=== PATIENT | female | born 1945 | race Caucasian/White ===

== ENCOUNTER → 2018-10-01 | Outpatient (CLI) | payer OTHER | END | disposition home or self-care (01) | LOC: SHCH 11:01 | PROVIDERS: ATTEND Internal Medicine Cardiovascular Disease | DX: R94.31 Abnormal electrocardiogram [ECG] [EKG] (principal); R00.0 Tachycardia, unspecified | CPT/HCPCS: 93306 ==

== ENCOUNTER → 2018-10-04 | Outpatient (CLI) | payer OTHER | END | disposition home or self-care (01) | LOC: RAH 13:33 | PROVIDERS: ATTEND Internal Medicine Cardiovascular Disease | DX: Z13.6 Encounter for screening for cardiovascular disorders (principal) | CPT/HCPCS: 75571 ==

== ENCOUNTER → 2019-01-22 | Outpatient (CLI) | payer OTHER | END | disposition home or self-care (01) | LOC: SHCH 10:47 | PROVIDERS: ATTEND Internal Medicine Cardiovascular Disease | DX: I50.22 Chronic systolic (congestive) heart failure (principal) | CPT/HCPCS: 93306 ==

== ENCOUNTER 2019-02-21 05:36 | Observation (INO) | payer OTHER ==
[2019-02-19 09:30] VITALS: BP 162/81
[2019-02-19 09:37] LABS: BASOPHILS % (AUTO) 0.4 % (0.0-5.0); EOSINOPHILS % (AUTO) 4.4 % (0.0-8.0); HEMATOCRIT 40.3 % (36-48); LYMPHOCYTES % (AUTO) 25.7 % (21.0-51.0); MEAN CORPUSCULAR HEMOGLOBIN 35.2 pg (27.0-33.0); MEAN CORPUSCULAR HGB CONC 33.9 g/dL (32.0-36.0); MEAN CORPUSCULAR VOLUME 103.8 fL (79-99); MONOCYTES % (AUTO) 10.7 % (3.0-13.0); NEUTROPHILS % (AUTO) 58.8 % (40.0-77.0); PLATELET COUNT (AUTO) 222 K/uL (130-400); RED BLOOD CELL COUNT(AUTO) 3.88 MIL/uL (4.00-5.50); WHITE BLOOD COUNT (AUTO) 5.5 K/uL (4.8-10.8)
[2019-02-19 09:47] LABS: CREATININE 0.6 mg/dL (0.5-1.5); POTASSIUM 4.1 mmol/L (3.5-5.1)
[2019-02-19 09:51] LABS: INR 0.94 (0.85-1.15); PARTIAL THROMBOPLASTIN TIME 28.1 SEC (26.3-35.5); PROTHROMBIN TIME 9.9 SEC (9.6-11.6)
[~2019-02-21] VITALS: Ht 157.5 cm; Wt 67.2 kg
[2019-02-21] VITALS (12 sets, daily range): BP systolic 86–156; BP diastolic 51–89
[~2019-02-21 05:36] MED LIST: APPLE CIDER PO; ASCO10007 PO; BETA1TAB20 PO; CALC-190 PO; CART1TAB4 PO; CARV6.25 PO; CHOL200079 PO; CYAN50008 PO; FURO20TA4 PO; HERB1CAP2 PO; LOSA25TA41 PO; MULT-1265 PO; PANT40TA25 PO; SODIUM CHLORIDE 0.9% 1000ML 1,000 ML IV SCH; VITA1TAB39 PO
[2019-02-21] MEDS: CEFAZOLIN SODIUM 1 GM VIAL IVP SCH ×2 (06:00→19:53)
[2019-02-21] MEDS ORDERED: IOHEXOL-350 50ML VIAL IV ONE (07:14)
[2019-02-21] MEDS ORDERED: CEFAZOLIN SODIUM 1 GM VIAL ONE (07:14)
[2019-02-21] MEDS ORDERED: BUPIVACAINE/PF 0.25% 30ML VIAL IJ ONE (07:14)
[2019-02-21] MEDS ORDERED: MIDAZOLAM HCL 1 MG/ML 2ML VIAL ONE ×6 (07:15→08:45)
[2019-02-21] MEDS ORDERED: MEPERIDINE-PF 25 MG/ML SYG ONE ×6 (07:15→08:45)
[2019-02-21] MEDS ORDERED: LIDOCAINE HCL 1% MDV 50ML VIAL ONE (07:15)
[2019-02-21] MEDS ORDERED: ACETAMINOPHEN-CODEINE 300/30MG TAB PO PRN (09:15)
[2019-02-21] MEDS ORDERED: ACETAMINOPHEN EXTRA STRENGTH 500 MG TABLET PO PRN (09:15)
[2019-02-21] MEDS: MEPERIDINE-PF 25 MG/ML SYG IVP PRN (18:08)
[2019-02-21] MEDS: PANTOPRAZOLE SODIUM 40 MG TABLET.DR PO SCH (20:22)
[2019-02-21] MEDS: CARVEDILOL 6.25 MG TABLET PO SCH (20:22)
[2019-02-22 00:54] VITALS: BP 136/75
[2019-02-22] MEDS: MEPERIDINE-PF 25 MG/ML SYG IVP PRN (02:23)
[2019-02-22 04:29] VITALS: BP 118/72
[2019-02-22 07:49] VITALS: BP 136/80
--- NOTE | 2019-02-22 08:00 | NUR ---
AM ASSESSMENT PT LAYING IN BED, HOB ELEVATED 30 DEGREES, RESTING. A/O X 3. NO SOB. NO DISTRESS NOTED. DENIES CHEST PAIN OR DISCOMFORT. DENIES PALPITATIONS. DENIES INCISIONAL PAIN. TELE: SR 80-90s. DENIES N/V AND/OR DIARRHEA. LT UPPER CHEST PRESSURE DSG REMOVED. TELFA & OPSITE TO INCISION SITE, DRY & INTACT. NO BLEEDING, NO HEMATOMA NOTED. SLING TO LT ARM. ARM PRECAUTIONS REINFORCED. UP W/ASSISTANCE. INSTRUCTED TO CALL FOR ASSISTANCE. CALL GILMER W/IN REACH.
[2019-02-22] MEDS: PANTOPRAZOLE SODIUM 40 MG TABLET.DR PO SCH (08:17)
[2019-02-22] MEDS: CARVEDILOL 6.25 MG TABLET PO SCH (08:18)
[2019-02-22] MEDS ORDERED: FUROSEMIDE 20 MG TABLET PO SCH (09:00)
[2019-02-22] MEDS ORDERED: LOSARTAN 50 MG TABLET PO SCH (09:00)
--- NOTE | 2019-02-22 12:00 | NUR ---
DISCHARGE TELE LORENZO REMOVED. IV DISCONTINUED. PT MAY CHANGE & GATHER PERSONAL BELONGINGS @ THIS TIME. PENDING DC ORDER FROM DR SINGH. AWARE.
[2019-02-22 12:01] VITALS: BP 116/62
[2019-02-22] MEDS ORDERED: ZOLP5TAB2 PO (12:03)
--- NOTE | 2019-02-22 12:20 | NUR ---
DISCHARGE VERBAL & WRITTEN DISCHARGE INSTRUCTIONS REVIEWED & GIVEN TO PT. QUESTION ENCOURAGED & CLARIFIED. PROPER CARE & ACTIVITY AFTER ICD PLACEMENT REVIEWED. NEW PRESCRIBED MEDICATIONS REVIEWED. PRESCRIPTION GIVEN TO PT; SIGNED COPY PLACED IN CHART. PT WILL NOTIFY STAFF WHEN READY TO BE TAKEN TO PRIVATE VEHICLE.
--- NOTE | 2019-02-22 12:28 | NUR ---
DISCHARGE DR ALMENDAREZ NOTIFIED PT ALLERGIC TO CODEINE. PRESCRIPTION FOR TYLENOL # 3 CXD. PRESCRIPTION FOR TRAMADOL 50 MG PO Q6H PRN PAIN TO BE CALLED IN TO PT'S PHARMACY.
--- NOTE | 2019-02-22 12:35 | NUR ---
DISCHARGE PT TAKEN TO PRIVATE VEHICLE VIA WC BY Maisha THACKER PCP, ACCOMPANIED BY SPOUSE. NO DISTRESS NOTED.
== END 2019-02-22 12:35 | disposition home or self-care (01) ==
LOC: DAH 05:36 → DAHIP 05:37 → 2DH 10:00
PROVIDERS: ADMIT Internal Medicine; ATTEND Internal Medicine
DX: I42.0 Dilated cardiomyopathy (principal); I50.42 Chronic combined systolic (congestive) and diastolic (congestive) heart failure; Z79.899 Other long term (current) drug therapy; Z88.8 Allergy status to other drugs, medicaments and biological substances
CPT/HCPCS: 33249; 36415; 71045; 80048; 85025; 85610; 85730; 93005; 96374; 96376; A4606; C1721; C1895 ×2; G0378 ×27; J0690; J2175 ×8; J2250 ×6; J3490 ×2; J7030; Q9967; 99156; 99157

== ENCOUNTER 2019-03-22 08:26 | Emergency (ER) | payer OTHER ==
[~2019-03-22 08:26] MED LIST changes: -SODIUM CHLORIDE 0.9% 1000ML 1,000 ML IV SCH; +ZOLP5TAB2 PO
[2019-03-22 08:53] LABS: APPEARANCE,URINE Clear (CLEAR); BILIRUBIN,URINE Negative (NEGATIVE); COLOR,URINE Yellow (YELLOW); GLUCOSE, URINE (UA) Negative (NEGATIVE); KETONES,URINE Negative (NEGATIVE); LEUKOCYTE ESTERASE ,URINE Negative (NEGATIVE); NITRATE,URINE Negative (NEGATIVE); OCCULT BLOOD,URINE Negative (NEGATIVE); PROTEIN,URINE Negative (NEGATIVE); UROBILINOGEN,URINE 0.2 mg/dL (0.2-1.0)
[2019-03-22] MEDS ORDERED: ONDANSETRON HCL 4 MG/2 ML VIAL ONE (08:59)
[2019-03-22] MEDS ORDERED: MECLIZINE HCL 25 MG TABLET ONE (08:59)
[2019-03-22 09:05] LABS: BASOPHILS % (AUTO) 0.9 % (0.0-5.0); EOSINOPHILS % (AUTO) 4.6 % (0.0-8.0); HEMATOCRIT 41.5 % (36-48); LYMPHOCYTES % (AUTO) 28.3 % (21.0-51.0); MEAN CORPUSCULAR HEMOGLOBIN 35.4 pg (27.0-33.0); MEAN CORPUSCULAR HGB CONC 33.8 g/dL (32.0-36.0); MEAN CORPUSCULAR VOLUME 104.9 fL (79-99); MONOCYTES % (AUTO) 9.2 % (3.0-13.0); NUCLEATED RED BLOOD CELLS 0.1 % (0.0-0.19); PLATELET COUNT (AUTO) 175 K/uL (130-400); RED BLOOD CELL COUNT(AUTO) 3.96 MIL/uL (4.00-5.50); WHITE BLOOD COUNT (AUTO) 5.6 K/uL (4.8-10.8)
[2019-03-22 09:15] LABS: CREATININE 0.7 mg/dL (0.5-1.5); POTASSIUM 3.7 mmol/L (3.5-5.1)
[2019-03-22 09:20] LABS: ALBUMIN 3.7 g/dL (3.5-5.0); BILIRUBIN,DIRECT 0.1 mg/dL (0.0-0.3); BILIRUBIN,TOTAL 0.4 mg/dL (0.2-1.0); TOTAL PROTEIN, SERUM 7.3 g/dL (6.0-8.3)
[2019-03-22] MEDS ORDERED: ASPIRIN 325 MG TABLET ONE (11:51)
== END 2019-03-22 12:03 | disposition home or self-care (01) ==
LOC: EDH 08:26
DX: H81.319 Aural vertigo, unspecified ear (principal); R55 Syncope and collapse; R11.0 Nausea; R09.81 Nasal congestion; I11.0 Hypertensive heart disease with heart failure; I50.9 Heart failure, unspecified; Z88.6 Allergy status to analgesic agent; Z95.810 Presence of automatic (implantable) cardiac defibrillator; Z90.710 Acquired absence of both cervix and uterus; Z87.891 Personal history of nicotine dependence
CPT/HCPCS: 36415; 70450; 71045; 80048; 80076; 81003; 82550; 84484; 85025; 93005; 96374; 99284; J2405

== ENCOUNTER 2019-11-03 10:19 | Emergency (ER) | payer OTHER | END 2019-11-03 11:00 | disposition home or self-care (01) | LOC: EDH 10:19 | DX: R50.9 Fever, unspecified (principal); I11.0 Hypertensive heart disease with heart failure; I50.9 Heart failure, unspecified; Z88.6 Allergy status to analgesic agent; Z90.710 Acquired absence of both cervix and uterus; Z72.0 Tobacco use | CPT/HCPCS: 99281 ==

== ENCOUNTER 2020-07-24 09:02 | Emergency (ER) | payer OTHER ==
[~2020-07-24 09:02] MED LIST changes: +ASCO100031 PO; -ASCO10007 PO; -PANT40TA25 PO; +PANT40TA54 PO
[2020-07-24 09:48] LABS: BASOPHILS % (AUTO) 0.8 % (0.0-5.0); EOSINOPHILS % (AUTO) 2.9 % (0.0-8.0); HEMATOCRIT 37.9 % (36-48); LYMPHOCYTES % (AUTO) 25.6 % (21.0-51.0); MEAN CORPUSCULAR HEMOGLOBIN 34.5 pg (27.0-33.0); MEAN CORPUSCULAR HGB CONC 34.3 g/dL (32.0-36.0); MEAN CORPUSCULAR VOLUME 100.5 fL (79-99); MONOCYTES % (AUTO) 9.4 % (3.0-13.0); PLATELET COUNT (AUTO) 210 K/uL (130-400); RED BLOOD CELL COUNT(AUTO) 3.77 MIL/uL (4.00-5.50); RED CELL DISTRIBUTION WIDTH 14.4 % (11.0-15.5); WHITE BLOOD COUNT (AUTO) 7.1 K/uL (4.8-10.8)
[2020-07-24 09:57] LABS: CREATININE 0.8 mg/dL (0.5-1.5); POTASSIUM 4.4 mmol/L (3.5-5.1)
[2020-07-24 10:00] LABS: INR 0.91 (0.85-1.15); PARTIAL THROMBOPLASTIN TIME 22.9 SEC (26.3-35.5); PROTHROMBIN TIME 9.9 SEC (9.6-11.6)
[2020-07-24 10:02] LABS: ALBUMIN 3.8 g/dL (3.5-5.0); BILIRUBIN,TOTAL 0.5 mg/dL (0.2-1.0); TOTAL PROTEIN, SERUM 7.3 g/dL (6.0-8.3)
[2020-07-24 10:37] LABS: BILIRUBIN,URINE Negative (NEGATIVE); COLOR,URINE Yellow (YELLOW); GLUCOSE, URINE (UA) Negative (NEGATIVE); KETONES,URINE Negative (NEGATIVE); LEUKOCYTE ESTERASE ,URINE Trace (NEGATIVE); NITRATE,URINE Negative (NEGATIVE); OCCULT BLOOD,URINE Negative (NEGATIVE); PROTEIN,URINE Negative (NEGATIVE); UROBILINOGEN,URINE 0.2 mg/dL (0.2-1.0)
[2020-07-24 10:40] LABS: APPEARANCE,URINE Clear (CLEAR)
[2020-07-24 10:44] LABS: AMPHET/METH SCREEN,URINE NEGATIVE (NEGATIVE); BARBITURATE SCREEN, URINE NEGATIVE (NEGATIVE); BENZODIAZEPINES SCREEN,URINE POSITIVE (NEGATIVE); CANNABINOID SCREEN,URINE NEGATIVE (NEGATIVE); COCAINE SCREEN,URINE NEGATIVE (NEGATIVE); OPIATE SCREEN,URINE NEGATIVE (NEGATIVE); PHENCYCLIDINE SCREEN,URINE NEGATIVE (NEGATIVE)
[2020-07-24 11:00] LABS: BACTERIA,URINE None Seen /HPF (None Seen); RBC,URINE None Seen /HPF (0-1); SQUAMOUS EPITHELIAL CELL,UR 0-2 /HPF (0-2); WBC,URINE 0-1 /HPF (0-1)
[2020-07-24] MEDS ORDERED: IOHEXOL-350 75 ML VIAL IV ONE (11:29)
== END 2020-07-24 14:48 | disposition home or self-care (01) ==
LOC: EDH 09:02
DX: S09.90XA Unspecified injury of head, initial encounter (principal); I50.9 Heart failure, unspecified; I10 Essential (primary) hypertension; Z90.49 Acquired absence of other specified parts of digestive tract; Z90.710 Acquired absence of both cervix and uterus; Z87.891 Personal history of nicotine dependence; Z88.6 Allergy status to analgesic agent; W06.XXXA Fall from bed, initial encounter; Y93.89 Activity, other specified; Y92.89 Other specified places as the place of occurrence of the external cause; Y99.8 Other external cause status
CPT/HCPCS: 36415; 70450; 70496; 70498; 71045; 80053; 80305; 81001; 82550; 82948; 83721; 84484; 85025; 85610; 85730; 93005; 99284; Q9967

== ENCOUNTER 2021-08-12 22:00 | Emergency (ER) | payer OTHER ==
[~2021-08-12] VITALS: Ht 162.6 cm; Wt 68.0 kg
[~2021-08-12 22:00] MED LIST changes: -CYAN50008 PO; +CYAN50009 PO
[2021-08-12] MEDS ORDERED: 0.9%NACL 1000ML 1,000 ML IV ONE (22:30)
[2021-08-12] MEDS ORDERED: LIDOCAINE HCL MPF 1% 5ML VIAL ONE (22:55)
[2021-08-12 23:00] VITALS: BP 114/72
[2021-08-12 23:00] LABS: BASOPHILS % (AUTO) 1.1 % (0.0-5.0); EOSINOPHILS % (AUTO) 4.5 % (0.0-8.0); HEMATOCRIT 32.6 % (36-48); LYMPHOCYTES % (AUTO) 42.9 % (21.0-51.0); MEAN CORPUSCULAR HEMOGLOBIN 35.6 pg (27.0-33.0); MEAN CORPUSCULAR VOLUME 104.5 fL (79-99); MONOCYTES % (AUTO) 7.8 % (3.0-13.0); NEUTROPHILS % (AUTO) 43.5 % (40.0-77.0); PLATELET COUNT (AUTO) 233 K/uL (130-400); RED BLOOD CELL COUNT(AUTO) 3.12 MIL/uL (4.00-5.50); RED CELL DISTRIBUTION WIDTH 14.1 % (11.0-15.5); WHITE BLOOD COUNT (AUTO) 5.4 K/uL (4.8-10.8)
[2021-08-12 23:20] LABS: ALBUMIN 3.6 g/dL (3.5-5.0); BILIRUBIN,TOTAL 0.2 mg/dL (0.2-1.0); CREATININE 1.1 mg/dL (0.5-1.5); TOTAL PROTEIN, SERUM 6.6 g/dL (6.0-8.3)
[2021-08-13] MEDS ORDERED: MELO7.5T12 PO (01:49)
[2021-08-13] MEDS ORDERED: ORPH-43 PO (01:49)
[2021-08-13] MEDS ORDERED: LIDOP TP (01:49)
== END 2021-08-13 01:55 | disposition home or self-care (01) ==
LOC: EDH 22:00
DX: S43.014A Anterior dislocation of right humerus, initial encounter (principal); F10.129 Alcohol abuse with intoxication, unspecified; I25.10 Atherosclerotic heart disease of native coronary artery without angina pectoris; I95.9 Hypotension, unspecified; Z88.5 Allergy status to narcotic agent; Z79.1 Long term (current) use of non-steroidal anti-inflammatories (NSAID); Z79.899 Other long term (current) drug therapy; Z95.810 Presence of automatic (implantable) cardiac defibrillator; W01.0XXA Fall on same level from slipping, tripping and stumbling without subsequent striking against object, initial encounter; Y93.89 Activity, other specified; Y92.89 Other specified places as the place of occurrence of the external cause; Y99.8 Other external cause status
CPT/HCPCS: 23650; 36415; 70450; 71045; 73030 ×2; 80053; 82550; 83605; 83690; 84484; 85025; 93005; 96360; 99284; J3490; J7030

== ENCOUNTER → 2021-08-17 | Outpatient (CLI) | payer OTHER ==
[~2021-08-17] MED LIST changes: +LIDOP TP; +MELO7.5T12 PO; +ORPH-43 PO
== END | disposition home or self-care (01) ==
LOC: RAH 13:06
PROVIDERS: ATTEND Orthopaedic Surgery
DX: S70.11XA Contusion of right thigh, initial encounter (principal); K57.90 Diverticulosis of intestine, part unspecified, without perforation or abscess without bleeding; I70.8 Atherosclerosis of other arteries; X58.XXXA Exposure to other specified factors, initial encounter; Y93.89 Activity, other specified; Y92.89 Other specified places as the place of occurrence of the external cause; Y99.8 Other external cause status
CPT/HCPCS: 73700

== ENCOUNTER → 2021-09-16 | Outpatient (CLI) | payer OTHER | END | disposition home or self-care (01) | LOC: RAH 12:33 | PROVIDERS: ATTEND Family Medicine | DX: Q74.2 Other congenital malformations of lower limb(s), including pelvic girdle (principal); M41.85 Other forms of scoliosis, thoracolumbar region | CPT/HCPCS: 78306; A9503 ==

== ENCOUNTER 2022-10-26 10:32 | Emergency (ER) | payer OTHER ==
[~2022-10-26] VITALS: Ht 162.6 cm; Wt 63.5 kg
[2022-10-26 11:34] LABS: APPEARANCE,URINE CLOUDY (CLEAR); BILIRUBIN,URINE NEGATIVE (NEGATIVE); COLOR,URINE YELLOW (YELLOW); GLUCOSE, URINE (UA) NEGATIVE (NEGATIVE); KETONES,URINE 40 mg/dL (NEGATIVE); LEUKOCYTE ESTERASE ,URINE 75 Leu/uL (NEGATIVE); NITRATE,URINE NEGATIVE (NEGATIVE); OCCULT BLOOD,URINE NEGATIVE (NEGATIVE); PH,URINE 5.5 (5.0-8.0); PROTEIN,URINE 30 mg/dL (NEGATIVE)
[2022-10-26 11:42] LABS: BASOPHILS % (AUTO) 0.7 % (0.0-5.0); EOSINOPHILS % (AUTO) 1.9 % (0.0-8.0); HEMATOCRIT 40.9 % (36-48); LYMPHOCYTES % (AUTO) 29.1 % (21.0-51.0); MEAN CORPUSCULAR HEMOGLOBIN 35.1 pg (27.0-33.0); MEAN CORPUSCULAR HGB CONC 35.5 g/dL (32.0-36.0); MONOCYTES % (AUTO) 8.7 % (3.0-13.0); NEUTROPHILS % (AUTO) 59.4 % (40.0-77.0); PLATELET COUNT (AUTO) 175 K/uL (130-400); RED BLOOD CELL COUNT(AUTO) 4.13 MIL/uL (4.00-5.50); RED CELL DISTRIBUTION WIDTH 14.8 % (11.0-15.5); WHITE BLOOD COUNT (AUTO) 5.8 K/uL (4.8-10.8)
[2022-10-26] MEDS ORDERED: ONDA-104 PO (11:43)
[2022-10-26] MEDS ORDERED: MECL-262 PO (11:43)
[2022-10-26 11:46] LABS: BACTERIA,URINE FEW /HPF (None Seen); MUCUS,URINE RARE LPF (None Seen); RBC,URINE 0-1 /HPF (0-1); SQUAMOUS EPITHELIAL CELL,UR MOD /HPF (0-2)
[2022-10-26 11:52] LABS: CREATININE 0.8 mg/dL (0.5-1.5); POTASSIUM 3.9 mmol/L (3.5-5.1)
[2022-10-26 11:57] LABS: ALBUMIN 3.9 g/dL (3.5-5.0); TOTAL PROTEIN, SERUM 6.7 g/dL (6.0-8.3)
[2022-10-26 11:58] VITALS: BP 134/68
== END 2022-10-26 12:09 | disposition home or self-care (01) ==
LOC: EDH 10:32
DX: H81.10 Benign paroxysmal vertigo, unspecified ear (principal); R11.0 Nausea; F41.9 Anxiety disorder, unspecified; F32.A Depression, unspecified; I11.0 Hypertensive heart disease with heart failure; I50.9 Heart failure, unspecified; K21.9 Gastro-esophageal reflux disease without esophagitis; Z79.899 Other long term (current) drug therapy; Z90.49 Acquired absence of other specified parts of digestive tract; Z88.5 Allergy status to narcotic agent; Z98.890 Other specified postprocedural states; Z90.710 Acquired absence of both cervix and uterus
CPT/HCPCS: 36415; 71045; 80053; 81001; 85025; 87077; 87088; 87186; 93005

== ENCOUNTER 2022-10-31 20:56 | Emergency (ER) | payer OTHER ==
[~2022-10-31] VITALS: Ht 162.6 cm; Wt 62.1 kg
[~2022-10-31 20:56] MED LIST changes: +MECL-262 PO; +ONDA-104 PO
[2022-10-31 22:11] LABS: BASOPHILS % (AUTO) 0.9 % (0.0-5.0); EOSINOPHILS % (AUTO) 1.4 % (0.0-8.0); HEMATOCRIT 42.1 % (36-48); LYMPHOCYTES % (AUTO) 32.4 % (21.0-51.0); MEAN CORPUSCULAR HEMOGLOBIN 34.8 pg (27.0-33.0); MEAN CORPUSCULAR HGB CONC 35.2 g/dL (32.0-36.0); MEAN CORPUSCULAR VOLUME 99.1 fL (79-99); NEUTROPHILS % (AUTO) 52.9 % (40.0-77.0); PLATELET COUNT (AUTO) 193 K/uL (130-400); RED BLOOD CELL COUNT(AUTO) 4.25 MIL/uL (4.00-5.50); RED CELL DISTRIBUTION WIDTH 14.3 % (11.0-15.5); WHITE BLOOD COUNT (AUTO) 5.6 K/uL (4.8-10.8)
[2022-10-31 22:19] LABS: CREATININE 1.1 mg/dL (0.5-1.5); POTASSIUM 3.7 mmol/L (3.5-5.1)
[2022-10-31 22:23] LABS: ALBUMIN 3.9 g/dL (3.5-5.0); TOTAL PROTEIN, SERUM 6.7 g/dL (6.0-8.3)
[2022-10-31] MEDS ORDERED: DEXTROSE 5%-LACTATED RINGERS 1,000 ML IV ONE (23:19)
[2022-11-01] MEDS ORDERED: DEXAMETHASONE SOD PHOSPHATE 4 MG/ML 1ML VIAL IVP ONE
[2022-11-01] MEDS ORDERED: PROMETHAZINE HCL 25 MG/ML 1ML AMPULE IM ONE
[2022-11-01 01:29] VITALS: BP 119/67
[2022-11-01] MEDS ORDERED: LORAZEPAM 2 MG/ML 1 ML VIAL IVP ONE (02:30)
[2022-11-01] MEDS ORDERED: PRED20TA3 PO (03:12)
== END 2022-11-01 04:22 | disposition home or self-care (01) ==
LOC: EDH 20:56
DX: H81.10 Benign paroxysmal vertigo, unspecified ear (principal); I10 Essential (primary) hypertension; Z20.822 Contact with and (suspected) exposure to COVID-19; Z88.5 Allergy status to narcotic agent; Z79.899 Other long term (current) drug therapy
CPT/HCPCS: 99284; 87635; 80053; 85025; 36415; 93005; 96374; 96375; 96372; C9803; J3490; J1100; J2550; J2060

== ENCOUNTER 2022-12-01 12:48 | Observation (INO) | payer OTHER ==
[~2022-12-01] VITALS: Ht 162.6 cm; Wt 69.0 kg
[~2022-12-01 12:48] MED LIST changes: -ORPH-43 PO; +ORPH100T4 PO; +PRED20TA3 PO
[2022-12-01 13:38] LABS: CREATININE 1.9 mg/dL (0.5-1.5); POTASSIUM 3.5 mmol/L (3.5-5.1)
[2022-12-01 13:40] LABS: BASOPHILS % (AUTO) 0.5 % (0.0-5.0); EOSINOPHILS % (AUTO) 1.2 % (0.0-8.0); HEMATOCRIT 33.9 % (36-48); LYMPHOCYTES % (AUTO) 26.5 % (21.0-51.0); MEAN CORPUSCULAR HEMOGLOBIN 34.3 pg (27.0-33.0); MEAN CORPUSCULAR HGB CONC 34.8 g/dL (32.0-36.0); MEAN CORPUSCULAR VOLUME 98.5 fL (79-99); MONOCYTES % (AUTO) 11.3 % (3.0-13.0); NEUTROPHILS % (AUTO) 60.1 % (40.0-77.0); PLATELET COUNT (AUTO) 180 K/uL (130-400); RED BLOOD CELL COUNT(AUTO) 3.44 MIL/uL (4.00-5.50); RED CELL DISTRIBUTION WIDTH 13.5 % (11.0-15.5); WHITE BLOOD COUNT (AUTO) 5.7 K/uL (4.8-10.8)
[2022-12-01 13:43] LABS: ALBUMIN 2.8 g/dL (3.5-5.0); TOTAL PROTEIN, SERUM 6.1 g/dL (6.0-8.3)
[2022-12-01] MEDS ORDERED: 0.9%NACL 1000ML 1,000 ML IV ONE (14:30)
[2022-12-01 15:15] LABS: APPEARANCE,URINE CLOUDY (CLEAR); BILIRUBIN,URINE NEGATIVE (NEGATIVE); COLOR,URINE YELLOW (YELLOW); GLUCOSE, URINE (UA) NEGATIVE (NEGATIVE); KETONES,URINE NEGATIVE (NEGATIVE); LEUKOCYTE ESTERASE ,URINE NEGATIVE Leu/uL (NEGATIVE); NITRATE,URINE NEGATIVE (NEGATIVE); OCCULT BLOOD,URINE NEGATIVE (NEGATIVE); PROTEIN,URINE 10 mg/dL (NEGATIVE); UROBILINOGEN,URINE 0.2 mg/dL (0.2-1.0)
[2022-12-01 15:31] LABS: MUCUS,URINE RARE LPF (None Seen); RBC,URINE 0-1 /HPF (0-1); SQUAMOUS EPITHELIAL CELL,UR RARE /HPF (0-2)
[2022-12-01 17:50] VITALS: BP 103/68
[2022-12-01] MEDS: 1/2 NS 1000ML 1,000 ML IV SCH (18:01)
[2022-12-01] MEDS ORDERED: DARI50TA PO (20:00)
[2022-12-01] MEDS ORDERED: HYDR-4060 PO (20:00)
[2022-12-01 20:08] VITALS: BP 108/69
[2022-12-01] MEDS ORDERED: GABA-529 PO (20:12)
[2022-12-01] MEDS ORDERED: PRED20TA3 PO (20:12)
[2022-12-01] MEDS ORDERED: VALA100031 PO (20:12)
[2022-12-01] MEDS ORDERED: TRAM50TA4 PO (20:39)
[2022-12-01] MEDS ORDERED: MONT-47 PO (20:39)
[2022-12-01] MEDS ORDERED: HYDR50CA50 PO ×2 (20:39)
[2022-12-01] MEDS ORDERED: VENL-63 PO (20:39)
[2022-12-01] MEDS ORDERED: TRAZ150T79 PO ×2 (20:39)
[2022-12-01] MEDS ORDERED: METO-409 PO (20:39)
[2022-12-01] MEDS ORDERED: SACU1TAB7 PO (20:39)
[2022-12-01] MEDS ORDERED: PRAZ2CAP2 PO (20:39)
[2022-12-01] MEDS ORDERED: NON-FORMULARY MEDICATION 1 EACH (Trazodone HCl 150 MG) PO SCH (21:00)
[2022-12-01] MEDS ORDERED: NON-FORMULARY MEDICATION 1 EACH (Trazodone HCl 300 MG) PO SCH (21:00)
[2022-12-01] MEDS ORDERED: HYDROXYZINE PAMOATE 100 MG PO SCH (21:00)
[2022-12-01] MEDS ORDERED: PANTOPRAZOLE 40 MG TAB DR PO SCH (21:00)
[2022-12-01] MEDS ORDERED: MONTELUKAST SODIUM 10 MG TAB PO SCH (21:00)
[2022-12-01] MEDS ORDERED: VALACYCLOVIR HCL 1 GM PO SCH (21:00)
[2022-12-01] MEDS ORDERED: TRAMADOL HCL 50 MG TABLET PO PRN ×2 (21:00)
[2022-12-01] MEDS ORDERED: SACUBITRIL/VALSARTAN 1 EACH TABLET PO SCH (21:00)
[2022-12-01] MEDS ORDERED: DARIDOREXANT HCL PO SCH (21:00)
[2022-12-01] MEDS ORDERED: HYDROXYZINE PAMOATE 50 MG PO SCH (21:00)
[2022-12-01] MEDS ORDERED: PRAZOSIN HCL 2 MG PO SCH (21:00)
[2022-12-01] MEDS ORDERED: DEXAMETHASONE SOD PHOSPHATE 4 MG/ML 1ML VIAL IV ONE (22:00)
[2022-12-01] MEDS ORDERED: TRAZODONE HCL 100 MG TABLET PO SCH (22:00)
[2022-12-01] MEDS ORDERED: PRAZOSIN 2 MG PO SCH (22:00)
[2022-12-01 23:29] VITALS: BP 112/63
[2022-12-02 03:59] VITALS: BP 90/50
[2022-12-02] MEDS: 1/2 NS 1000ML 1,000 ML IV SCH (06:18)
[2022-12-02 06:29] LABS: BASOPHILS % (AUTO) 0.4 % (0.0-5.0); EOSINOPHILS % (AUTO) 0.2 % (0.0-8.0); LYMPHOCYTES % (AUTO) 19.4 % (21.0-51.0); MEAN CORPUSCULAR HEMOGLOBIN 34.7 pg (27.0-33.0); MEAN CORPUSCULAR HGB CONC 34.7 g/dL (32.0-36.0); MONOCYTES % (AUTO) 7.8 % (3.0-13.0); PLATELET COUNT (AUTO) 193 K/uL (130-400); RED CELL DISTRIBUTION WIDTH 13.7 % (11.0-15.5); WHITE BLOOD COUNT (AUTO) 4.9 K/uL (4.8-10.8)
[2022-12-02 06:36] LABS: ALBUMIN 2.6 g/dL (3.5-5.0); CREATININE 1.1 mg/dL (0.5-1.5); POTASSIUM 4.4 mmol/L (3.5-5.1); TOTAL PROTEIN, SERUM 5.8 g/dL (6.0-8.3)
[2022-12-02 08:14] VITALS: BP 111/64
[2022-12-02] MEDS ORDERED: [UNRECOGNIZED DRUG - OTHER] PO SCH (09:00)
[2022-12-02] MEDS ORDERED: NON-FORMULARY MEDICATION 1 EACH (Metoprolol Succinate 100 MG) PO SCH (09:00)
[2022-12-02] MEDS ORDERED: METOPROLOL SUCCINATE 50 MG TAB.SR.24H PO SCH (09:00)
[2022-12-02] MEDS ORDERED: PREDNISONE 20 MG TABLET PO SCH (09:00)
[2022-12-02] MEDS ORDERED: MULTIVITS CA MINERALS PO SCH (09:00)
[2022-12-02] MEDS ORDERED: VENLAFAXINE HCL XR 37.5 MG CAP PO SCH (09:00)
[2022-12-02] MEDS ORDERED: HYDROXYZINE 25 MG TABLET PO SCH (09:00)
[2022-12-02] MEDS ORDERED: VALACYCLOVIR HCL 500 MG TABLET PO SCH (09:00)
[2022-12-02] MEDS ORDERED: IRON PO SCH (09:00)
[2022-12-02] MEDS ORDERED: MULTIVITAMINS/MINERALS/IRO TAB PO SCH (09:00)
[2022-12-02] MEDS ORDERED: VENLAFAXINE HCL 150 MG PO SCH (09:00)
[2022-12-02] MEDS ORDERED: FUROSEMIDE 20 MG TABLET PO SCH (09:00)
[2022-12-02] MEDS ORDERED: [UNRECOGNIZED DRUG - OTHER] PO SCH (21:00)
== END 2022-12-02 10:00 | disposition home or self-care (01) ==
LOC: EDH 12:48 → EDHIP 15:35 → INTOOBSV 15:35 → UNDOADMOB 15:35 → EDHIP 15:35 → 3DH 17:50 → EDHIP 17:50 → 3DH 17:50 → UNDODISOB 12-02 10:00
PROVIDERS: ADMIT Internal Medicine; ATTEND Internal Medicine
DX: E86.0 Dehydration (principal); G92.8 Other toxic encephalopathy; T50.905A Adverse effect of unspecified drugs, medicaments and biological substances, initial encounter; I42.8 Other cardiomyopathies; N17.9 Acute kidney failure, unspecified; I11.0 Hypertensive heart disease with heart failure; I50.22 Chronic systolic (congestive) heart failure; F41.9 Anxiety disorder, unspecified; E44.0 Moderate protein-calorie malnutrition; G47.00 Insomnia, unspecified; B02.29 Other postherpetic nervous system involvement; J45.909 Unspecified asthma, uncomplicated; R53.1 Weakness; Z79.899 Other long term (current) drug therapy; Z98.890 Other specified postprocedural states; Z68.26 Body mass index [BMI] 26.0-26.9, adult
CPT/HCPCS: 96374; 96361 ×3; 99285; 84484; 80053 ×2; 83880; 85025 ×2; 83605; 81001; 36415 ×2; 71045; 93005; J1100; J7030; G0378 ×2

== ENCOUNTER 2022-12-07 00:16 | Inpatient (IN) | payer OTHER ==
[~2022-12-07] VITALS: Ht 162.6 cm; Wt 60.6 kg
[~2022-12-07 00:16] MED LIST changes: -ASCO100031 PO; -CALC-190 PO; -CART1TAB4 PO; -CARV6.25 PO; -CHOL200079 PO; -CYAN50009 PO; +DARI50TA PO; +GABA-529 PO; -HERB1CAP2 PO; +HYDR-4060 PO; +HYDR50CA50 PO; -LIDOP TP; -LOSA25TA41 PO; -MECL-262 PO; -MELO7.5T12 PO; +METO-409 PO; +MONT-47 PO; -ONDA-104 PO; -ORPH100T4 PO; +PRAZ2CAP2 PO; +SACU1TAB7 PO; +TRAM50TA4 PO; +TRAZ150T79 PO; +VALA100031 PO; +VENL-63 PO; -VITA1TAB39 PO; -ZOLP5TAB2 PO
[2022-12-07 00:29] LABS: BASOPHILS % (AUTO) 0.9 % (0.0-5.0); EOSINOPHILS % (AUTO) 2.5 % (0.0-8.0); HEMATOCRIT 36.8 % (36-48); LYMPHOCYTES % (AUTO) 42.6 % (21.0-51.0); MEAN CORPUSCULAR HGB CONC 34.5 g/dL (32.0-36.0); MEAN CORPUSCULAR VOLUME 98.4 fL (79-99); MONOCYTES % (AUTO) 12.3 % (3.0-13.0); NEUTROPHILS % (AUTO) 41.2 % (40.0-77.0); PLATELET COUNT (AUTO) 324 K/uL (130-400); RED BLOOD CELL COUNT(AUTO) 3.74 MIL/uL (4.00-5.50); RED CELL DISTRIBUTION WIDTH 13.7 % (11.0-15.5); WHITE BLOOD COUNT (AUTO) 6.4 K/uL (4.8-10.8)
[2022-12-07 00:36] LABS: CREATININE 0.7 mg/dL (0.5-1.5); POTASSIUM 3.9 mmol/L (3.5-5.1)
[2022-12-07 00:41] LABS: ALBUMIN 2.9 g/dL (3.5-5.0); TOTAL PROTEIN, SERUM 6.5 g/dL (6.0-8.3)
[2022-12-07] MEDS ORDERED: 0.9% NACL 500ML IV.SOLN 500 ML IV ONE (01:30)
[2022-12-07] MEDS ORDERED: TEMA15CA PO (02:14)
[2022-12-07] MEDS ORDERED: GABA600T10 PO (02:15)
[2022-12-07] MEDS ORDERED: PRAZ2CAP2 PO (02:16)
[2022-12-07] MEDS ORDERED: SACU1TAB7 PO ×2 (02:18→11:39)
[2022-12-07] MEDS ORDERED: VENL150T3 PO (02:19)
[2022-12-07] MEDS ORDERED: MONT-39 PO (02:20)
[2022-12-07] MEDS ORDERED: VALA100031 PO (02:20)
[2022-12-07] MEDS ORDERED: METOPROLOL TARTRATE 1 MG/ML 5ML VIAL IV ONE (02:30)
[2022-12-07 09:40] VITALS: BP 129/79
[2022-12-07] MEDS ORDERED: TRAMADOL HCL 50 MG TABLET PO PRN (11:30)
[2022-12-07] MEDS ORDERED: GABA300C PO (11:46)
[2022-12-07 12:00] VITALS: BP 94/45
[2022-12-07] MEDS: GABAPENTIN 300 MG CAPSULE PO SCH ×3 (13:13→19:43)
[2022-12-07] MEDS: VALACYCLOVIR HCL 500 MG TABLET PO SCH ×2 (14:36→19:43)
[2022-12-07 16:00] VITALS: BP 147/98
[2022-12-07] MEDS: SACUBITRIL/VALSARTAN 1 EACH TABLET PO SCH (19:43)
[2022-12-07] MEDS: MONTELUKAST SODIUM 10 MG TAB PO SCH (19:43)
[2022-12-07] MEDS: TEMAZEPAM 15 MG CAPSULE PO SCH (19:43)
[2022-12-07] MEDS: PANTOPRAZOLE 40 MG TAB DR PO SCH (19:43)
[2022-12-07] MEDS: PRAZOSIN 2 MG PO SCH (19:45)
[2022-12-07 20:48] VITALS: BP 142/73
[2022-12-07] MEDS ORDERED: SACUBITRIL/VALSARTAN 1 EACH TABLET PO SCH ×2 (21:00)
[2022-12-07] MEDS: HYDROCODONE/ACETAMINOPHEN 5/325 MG TAB PO PRN (21:09)
[2022-12-08 03:34] VITALS: BP 127/60
[2022-12-08 05:04] LABS: CREATININE 0.7 mg/dL (0.5-1.5); POTASSIUM 3.9 mmol/L (3.5-5.1)
[2022-12-08 08:00] VITALS: BP 126/67
[2022-12-08] MEDS ORDERED: SPIRONOLACTONE 25 MG TAB PO SCH (09:00)
[2022-12-08] MEDS: GABAPENTIN 300 MG CAPSULE PO SCH ×4 (09:03→20:12)
[2022-12-08] MEDS: PREDNISONE 20 MG TABLET PO SCH (09:03)
[2022-12-08] MEDS: VALACYCLOVIR HCL 500 MG TABLET PO SCH ×3 (09:03→20:23)
[2022-12-08] MEDS: FUROSEMIDE 20 MG TABLET PO SCH (09:04)
[2022-12-08] MEDS: EMPAGLIFLOZIN 10MG TABLET PO SCH (09:04)
[2022-12-08] MEDS: SPIRONOLACTONE 25 MG TAB PO SCH (09:05)
[2022-12-08] MEDS: PANTOPRAZOLE 40 MG TAB DR PO SCH ×2 (09:05→20:13)
[2022-12-08] MEDS: METOPROLOL SUCCINATE 50 MG TAB.SR.24H PO SCH (09:06)
[2022-12-08] MEDS: VENLAFAXINE HCL XR 37.5 MG CAP PO SCH (09:06)
[2022-12-08] MEDS: SACUBITRIL/VALSARTAN 1 EACH TABLET PO SCH ×2 (09:06→20:12)
[2022-12-08 12:00] VITALS: BP 133/64
[2022-12-08 16:00] VITALS: BP 103/64
[2022-12-08] MEDS: HYDROCODONE/ACETAMINOPHEN 5/325 MG TAB PO PRN (19:31)
[2022-12-08 19:51] VITALS: BP 116/73
[2022-12-08] MEDS: MONTELUKAST SODIUM 10 MG TAB PO SCH (20:12)
[2022-12-08] MEDS: TEMAZEPAM 15 MG CAPSULE PO SCH (20:12)
[2022-12-08] MEDS: DRONEDARONE HYDROCHLORIDE 400 MG TABLET PO SCH (20:22)
[2022-12-08] MEDS: PRAZOSIN 2 MG PO SCH (20:29)
[2022-12-09 00:30] VITALS: BP 122/68
[2022-12-09] MEDS: TRAMADOL HCL 50 MG TABLET PO PRN (01:27)
[2022-12-09 05:58] LABS: CREATININE 0.7 mg/dL (0.5-1.5); POTASSIUM 3.7 mmol/L (3.5-5.1)
[2022-12-09] MEDS: PANTOPRAZOLE 40 MG TAB DR PO SCH ×2 (08:16→21:10)
[2022-12-09] MEDS: PREDNISONE 20 MG TABLET PO SCH (08:16)
[2022-12-09] MEDS: GABAPENTIN 300 MG CAPSULE PO SCH ×4 (08:16→21:11)
[2022-12-09] MEDS: METOPROLOL SUCCINATE 50 MG TAB.SR.24H PO SCH ×2 (08:16→08:40)
[2022-12-09] MEDS: EMPAGLIFLOZIN 10MG TABLET PO SCH (08:17)
[2022-12-09] MEDS: FUROSEMIDE 20 MG TABLET PO SCH ×2 (08:17→08:40)
[2022-12-09 08:36] VITALS: BP 66/41
[2022-12-09] MEDS: SPIRONOLACTONE 25 MG TAB PO SCH (08:39)
[2022-12-09] MEDS: VALACYCLOVIR HCL 500 MG TABLET PO SCH ×3 (08:54→21:10)
[2022-12-09] MEDS: DRONEDARONE HYDROCHLORIDE 400 MG TABLET PO SCH ×2 (08:54→21:16)
[2022-12-09] MEDS: VENLAFAXINE HCL XR 37.5 MG CAP PO SCH (08:55)
[2022-12-09] MEDS: SACUBITRIL/VALSARTAN 1 EACH TABLET PO SCH ×2 (08:55→21:13)
[2022-12-09] MEDS ORDERED: KCL 20 MEQ ERTAB PO ONE (09:30)
[2022-12-09] MEDS ORDERED: FUROSEMIDE 20MG VIAL IV ONE (09:30)
[2022-12-09 12:46] VITALS: BP 91/49
[2022-12-09] MEDS ORDERED: DRON400T7 PO (14:11)
[2022-12-09 16:00] VITALS: BP 97/60
[2022-12-09 19:50] VITALS: BP 97/67
[2022-12-09] MEDS: PRAZOSIN 2 MG PO SCH (21:00)
[2022-12-09] MEDS: MONTELUKAST SODIUM 10 MG TAB PO SCH (21:11)
[2022-12-09] MEDS: TEMAZEPAM 15 MG CAPSULE PO SCH (21:11)
[2022-12-09 23:54] VITALS: BP 116/62
[2022-12-10 04:01] VITALS: BP 105/65
[2022-12-10 05:19] LABS: CREATININE 0.7 mg/dL (0.5-1.5); POTASSIUM 3.4 mmol/L (3.5-5.1)
[2022-12-10] MEDS: SACUBITRIL/VALSARTAN 1 EACH TABLET PO SCH ×2 (07:40→10:05)
[2022-12-10 08:05] VITALS: BP 96/55
[2022-12-10] MEDS ORDERED: METOPROLOL SUCCINATE 50 MG TAB.SR.24H PO SCH (09:15)
[2022-12-10] MEDS: VENLAFAXINE HCL XR 37.5 MG CAP PO SCH (10:05)
[2022-12-10] MEDS: PANTOPRAZOLE 40 MG TAB DR PO SCH (10:05)
[2022-12-10] MEDS: DRONEDARONE HYDROCHLORIDE 400 MG TABLET PO SCH (10:05)
[2022-12-10] MEDS: SPIRONOLACTONE 25 MG TAB PO SCH (10:05)
[2022-12-10] MEDS: VALACYCLOVIR HCL 500 MG TABLET PO SCH ×2 (10:05→14:08)
[2022-12-10] MEDS: EMPAGLIFLOZIN 10MG TABLET PO SCH (10:06)
[2022-12-10] MEDS: GABAPENTIN 300 MG CAPSULE PO SCH ×2 (10:06→14:08)
[2022-12-10] MEDS: PREDNISONE 20 MG TABLET PO SCH (10:06)
[2022-12-10 11:47] VITALS: BP 91/54
[2022-12-10] MEDS: TRAMADOL HCL 50 MG TABLET PO PRN (14:03)
== END 2022-12-10 15:50 | disposition home or self-care (01) | DRG 308 ==
LOC: EDH 00:16 → EDHIP 03:13 → 4DH 08:51
PROVIDERS: ADMIT Internal Medicine; ATTEND Internal Medicine
PROC: 4B02XTZ Measurement of Cardiac Defibrillator, External Approach (ICD-10-PCS; principal; 2022-12-07)
DX: I47.1 Supraventricular tachycardia (principal); I50.43 Acute on chronic combined systolic (congestive) and diastolic (congestive) heart failure; I42.0 Dilated cardiomyopathy; I11.0 Hypertensive heart disease with heart failure; B02.9 Zoster without complications; I48.91 Unspecified atrial fibrillation; F32.A Depression, unspecified; F32.9 Major depressive disorder, single episode, unspecified; F41.9 Anxiety disorder, unspecified; Z82.49 Family history of ischemic heart disease and other diseases of the circulatory system; I25.2 Old myocardial infarction
CPT/HCPCS: 36415; 71045; 80048; 80053; 82550; 83735; 83874; 83880; 84484; 85025; 93005; 93306; 93356; G0378; J3490

== ENCOUNTER 2022-12-22 00:02 | Emergency (ER) | payer OTHER ==
[~2022-12-22] VITALS: Ht 162.6 cm; Wt 61.2 kg
[~2022-12-22 00:02] MED LIST changes: -APPLE CIDER PO; -BETA1TAB20 PO; -DARI50TA PO; +DRON400T7 PO; -GABA-529 PO; +GABA300C PO; -HYDR50CA50 PO; -MULT-1265 PO; +TEMA15CA PO; -TRAZ150T79 PO
[2022-12-22 00:30] LABS: BASOPHILS % (AUTO) 0.7 % (0.0-5.0); EOSINOPHILS % (AUTO) 2.5 % (0.0-8.0); HEMATOCRIT 36.1 % (36-48); LYMPHOCYTES % (AUTO) 24.5 % (21.0-51.0); MEAN CORPUSCULAR HEMOGLOBIN 34.7 pg (27.0-33.0); MEAN CORPUSCULAR HGB CONC 34.3 g/dL (32.0-36.0); MEAN CORPUSCULAR VOLUME 101.1 fL (79-99); MONOCYTES % (AUTO) 8.1 % (3.0-13.0); NEUTROPHILS % (AUTO) 63.7 % (40.0-77.0); PLATELET COUNT (AUTO) 390 K/uL (130-400); RED BLOOD CELL COUNT(AUTO) 3.57 MIL/uL (4.00-5.50); RED CELL DISTRIBUTION WIDTH 14.5 % (11.0-15.5); WHITE BLOOD COUNT (AUTO) 8.5 K/uL (4.8-10.8)
[2022-12-22 00:40] LABS: POTASSIUM 4.3 mmol/L (3.5-5.1)
[2022-12-22 00:47] LABS: ALBUMIN 2.8 g/dL (3.5-5.0); MAGNESIUM 1.9 mg/dL (1.80-2.40); TOTAL PROTEIN, SERUM 6.1 g/dL (6.0-8.3)
[2022-12-22] MEDS ORDERED: IBUP-1493 PO (01:55)
[2022-12-22 02:38] VITALS: BP 110/48
[2022-12-24] MEDS ORDERED: [UNRECOGNIZED DRUG - CODE] TP (18:39)
== END 2022-12-22 02:25 | disposition home or self-care (01) ==
LOC: EDH 00:02
DX: R07.89 Other chest pain (principal); B02.9 Zoster without complications; Z79.899 Other long term (current) drug therapy; F41.9 Anxiety disorder, unspecified; Z79.52 Long term (current) use of systemic steroids; Z88.5 Allergy status to narcotic agent; Z95.810 Presence of automatic (implantable) cardiac defibrillator
CPT/HCPCS: 36415; 71045; 80053; 83735; 84484; 85025; 85730; 93005

== ENCOUNTER 2023-01-04 17:24 | Observation (INO) | payer OTHER ==
[~2023-01-04] VITALS: Ht 162.6 cm; Wt 60.7 kg
[~2023-01-04 17:24] MED LIST changes: +IBUP-1493 PO; -METO-409 PO; +[UNRECOGNIZED DRUG - CODE] TP
[2023-01-04 18:36] LABS: BASOPHILS % (AUTO) 0.8 % (0.0-5.0); EOSINOPHILS % (AUTO) 1.2 % (0.0-8.0); HEMATOCRIT 26.5 % (36-48); LYMPHOCYTES % (AUTO) 17.5 % (21.0-51.0); MEAN CORPUSCULAR HEMOGLOBIN 35.3 pg (27.0-33.0); MEAN CORPUSCULAR HGB CONC 34.3 g/dL (32.0-36.0); MEAN CORPUSCULAR VOLUME 102.7 fL (79-99); MONOCYTES % (AUTO) 9.6 % (3.0-13.0); NEUTROPHILS % (AUTO) 70.5 % (40.0-77.0); PLATELET COUNT (AUTO) 276 K/uL (130-400); RED BLOOD CELL COUNT(AUTO) 2.58 MIL/uL (4.00-5.50); RED CELL DISTRIBUTION WIDTH 16.8 % (11.0-15.5); WHITE BLOOD COUNT (AUTO) 5.1 K/uL (4.8-10.8)
[2023-01-04 18:40] LABS: APPEARANCE,URINE CLEAR (CLEAR); BILIRUBIN,URINE NEGATIVE (NEGATIVE); COLOR,URINE YELLOW (YELLOW); GLUCOSE, URINE (UA) 30 mg/dL (NEGATIVE); KETONES,URINE NEGATIVE (NEGATIVE); LEUKOCYTE ESTERASE ,URINE 75 Leu/uL (NEGATIVE); NITRATE,URINE NEGATIVE (NEGATIVE); OCCULT BLOOD,URINE NEGATIVE (NEGATIVE); PH,URINE 7.5 (5.0-8.0); PROTEIN,URINE 20 mg/dL (NEGATIVE); UROBILINOGEN,URINE 3 mg/dL (0.2-1.0)
[2023-01-04 18:53] LABS: CREATININE 0.7 mg/dL (0.5-1.5); POTASSIUM 4.2 mmol/L (3.5-5.1)
[2023-01-04 18:58] LABS: ALBUMIN 2.9 g/dL (3.5-5.0); TOTAL PROTEIN, SERUM 5.8 g/dL (6.0-8.3)
[2023-01-04 19:11] LABS: BACTERIA,URINE MOD /HPF (None Seen); MUCUS,URINE FEW LPF (None Seen); SQUAMOUS EPITHELIAL CELL,UR MOD /HPF (0-2); TRANSITIONAL EPI CELLS,URINE RARE /HPF (None Seen)
[2023-01-04] MEDS ORDERED: 0.9%NACL 1000ML 1,000 ML IV STA (19:31)
[2023-01-04] MEDS ORDERED: ONDANSETRON 4MG INJ IVP ONE (20:00)
[2023-01-04] MEDS ORDERED: PROMETHAZINE HCL 25 MG/ML 1ML AMPULE IM ONE (21:00)
[2023-01-04] MEDS: LEVOFLOXACIN 500 MG/D5W 100 ML 100 ML IV SCH (22:10)
[2023-01-05] VITALS (15 sets, daily range): BP systolic 110–153; BP diastolic 64–87
[2023-01-05] MEDS ORDERED: KCL 20 MEQ ERTAB PO PRN (02:00)
[2023-01-05] MEDS ORDERED: POTASSIUM CHLORIDE 10MEQ/100ML 100 ML IV PRN (02:00)
[2023-01-05] MEDS ORDERED: ONDANSETRON 4MG INJ IVP PRN (02:00)
[2023-01-05] MEDS ORDERED: POTASSIUM CHLORIDE 10% ELIXIR 20 MEQ/15 ML UDCUP PO PRN (02:00)
[2023-01-05] MEDS: 0.9%NACL 1000ML 1,000 ML IV SCH ×3 (03:34→18:00)
[2023-01-05] MEDS ORDERED: MACR100 PO (03:43)
[2023-01-05] MEDS ORDERED: TEMA30CA PO (03:43)
[2023-01-05 06:20] LABS: BASOPHILS % (AUTO) 0.6 % (0.0-5.0); EOSINOPHILS % (AUTO) 2.8 % (0.0-8.0); HEMATOCRIT 24.1 % (36-48); LYMPHOCYTES % (AUTO) 22.4 % (21.0-51.0); MEAN CORPUSCULAR HEMOGLOBIN 36.2 pg (27.0-33.0); MEAN CORPUSCULAR HGB CONC 35.3 g/dL (32.0-36.0); MEAN CORPUSCULAR VOLUME 102.6 fL (79-99); MONOCYTES % (AUTO) 10.6 % (3.0-13.0); PLATELET COUNT (AUTO) 240 K/uL (130-400); RED BLOOD CELL COUNT(AUTO) 2.35 MIL/uL (4.00-5.50); RED CELL DISTRIBUTION WIDTH 16.9 % (11.0-15.5); WHITE BLOOD COUNT (AUTO) 5.4 K/uL (4.8-10.8)
[2023-01-05 06:24] LABS: CREATININE 0.7 mg/dL (0.5-1.5); POTASSIUM 3.9 mmol/L (3.5-5.1)
[2023-01-05 06:31] LABS: ALBUMIN 2.5 g/dL (3.5-5.0); TOTAL PROTEIN, SERUM 5.1 g/dL (6.0-8.3)
[2023-01-05] MEDS ORDERED: METO-408 PO (08:03)
[2023-01-05] MEDS: SACUBITRIL/VALSARTAN 1 EACH TABLET PO SCH ×2 (09:19→20:35)
[2023-01-05] MEDS: FUROSEMIDE 20 MG TABLET PO SCH (09:19)
[2023-01-05] MEDS: METOPROLOL SUCCINATE 25 MG TAB.SR.24H PO SCH (09:19)
[2023-01-05] MEDS: DRONEDARONE HYDROCHLORIDE 400 MG TABLET PO SCH ×2 (09:19→20:35)
[2023-01-05] MEDS: GABAPENTIN 300 MG CAPSULE PO SCH ×3 (09:19→20:36)
[2023-01-05] MEDS: PANTOPRAZOLE 40 MG TAB DR PO SCH ×2 (09:19→20:35)
[2023-01-05] MEDS ORDERED: PROPOFOL 10 MG/ML 20ML VIAL IV ONE (15:18)
[2023-01-05] MEDS: LEVOFLOXACIN 500 MG/D5W 100 ML 100 ML IV SCH (20:36)
[2023-01-05] MEDS: LIDOCAINE HCL 5% OINT 50GM 1 APPL/GM TUBE TP PRN (20:52)
[2023-01-05] MEDS ORDERED: MONTELUKAST SODIUM 10 MG TAB PO SCH (21:00)
[2023-01-05] MEDS ORDERED: VENLAFAXINE HCL XR 37.5 MG CAP PO SCH (21:00)
[2023-01-05] MEDS ORDERED: TEMAZEPAM 30 MG CAP PO SCH (21:00)
[2023-01-06] VITALS: BP 125/74
[2023-01-06] MEDS: 0.9%NACL 1000ML 1,000 ML IV SCH ×2 (00:20→07:32)
[2023-01-06] MEDS: LIDOCAINE HCL 5% OINT 50GM 1 APPL/GM TUBE TP PRN (01:24)
[2023-01-06 04:00] VITALS: BP 124/77
[2023-01-06 08:00] VITALS: BP 160/84
[2023-01-06] MEDS: DRONEDARONE HYDROCHLORIDE 400 MG TABLET PO SCH (08:04)
[2023-01-06] MEDS: SACUBITRIL/VALSARTAN 1 EACH TABLET PO SCH (08:04)
[2023-01-06] MEDS: METOPROLOL SUCCINATE 25 MG TAB.SR.24H PO SCH (08:04)
[2023-01-06] MEDS: PANTOPRAZOLE 40 MG TAB DR PO SCH (08:04)
[2023-01-06] MEDS: GABAPENTIN 300 MG CAPSULE PO SCH (08:06)
[2023-01-06] MEDS: FUROSEMIDE 20 MG TABLET PO SCH (08:06)
[2023-01-07] MEDS ORDERED: ONDA4TAB10 PO (19:54)
== END 2023-01-06 08:55 | disposition home or self-care (01) ==
LOC: EDH 17:24 → EDHIP 01-05 00:30 → 4CH 01-05 01:19
PROVIDERS: ADMIT Internal Medicine; ATTEND Internal Medicine
DX: K21.00 Gastro-esophageal reflux disease with esophagitis, without bleeding (principal); Z20.822 Contact with and (suspected) exposure to COVID-19; E86.0 Dehydration; K27.9 Peptic ulcer, site unspecified, unspecified as acute or chronic, without hemorrhage or perforation; K29.70 Gastritis, unspecified, without bleeding; K29.80 Duodenitis without bleeding; K44.9 Diaphragmatic hernia without obstruction or gangrene; K57.90 Diverticulosis of intestine, part unspecified, without perforation or abscess without bleeding; D50.9 Iron deficiency anemia, unspecified; I25.10 Atherosclerotic heart disease of native coronary artery without angina pectoris; F03.94 Unspecified dementia, unspecified severity, with anxiety; I11.0 Hypertensive heart disease with heart failure; I50.9 Heart failure, unspecified; E78.5 Hyperlipidemia, unspecified; G47.00 Insomnia, unspecified; N39.0 Urinary tract infection, site not specified; I25.5 Ischemic cardiomyopathy; C18.9 Malignant neoplasm of colon, unspecified; D25.9 Leiomyoma of uterus, unspecified; R13.10 Dysphagia, unspecified; Z79.899 Other long term (current) drug therapy; Z95.810 Presence of automatic (implantable) cardiac defibrillator
CPT/HCPCS: 96372; 96361 ×3; 96365; 96366 ×3; 96375; 99285; 84484; 80053 ×2; 83690; 85025 ×2; 87088; 87804 ×2; 83605; 81001; 36415 ×2; 87635; 71045; 74176; 93005; 96376; 86677; 88305; 88342; 43239; 43249; C9803; J1956 ×2; J7030 ×3; J2550; J2405 ×2; G0378 ×30; J2704; A4620; A4520; A4215; A4223; A4657; A7002; A4222; A4216; A4606; C1726

== ENCOUNTER 2023-01-07 15:34 | Emergency (ER) | payer OTHER ==
[~2023-01-07] VITALS: Ht 162.6 cm; Wt 60.8 kg
[~2023-01-07 15:34] MED LIST changes: -HYDR-4060 PO; -IBUP-1493 PO; +METO-408 PO; -PRAZ2CAP2 PO; -PRED20TA3 PO; -TEMA15CA PO; +TEMA30CA PO; -TRAM50TA4 PO; -VALA100031 PO; -VENL-63 PO; -[UNRECOGNIZED DRUG - CODE] TP
[2023-01-07 16:34] LABS: BASOPHILS % (AUTO) 0.5 % (0.0-5.0); EOSINOPHILS % (AUTO) 3.5 % (0.0-8.0); HEMATOCRIT 33.2 % (36-48); LYMPHOCYTES % (AUTO) 15.6 % (21.0-51.0); MEAN CORPUSCULAR HEMOGLOBIN 35.5 pg (27.0-33.0); MEAN CORPUSCULAR HGB CONC 34.3 g/dL (32.0-36.0); MEAN CORPUSCULAR VOLUME 103.4 fL (79-99); MONOCYTES % (AUTO) 7.4 % (3.0-13.0); NEUTROPHILS % (AUTO) 72.5 % (40.0-77.0); PLATELET COUNT (AUTO) 258 K/uL (130-400); RED BLOOD CELL COUNT(AUTO) 3.21 MIL/uL (4.00-5.50); WHITE BLOOD COUNT (AUTO) 8.5 K/uL (4.8-10.8)
[2023-01-07 16:35] LABS: BILIRUBIN,URINE NEGATIVE (NEGATIVE); COLOR,URINE YELLOW (YELLOW); GLUCOSE, URINE (UA) NEGATIVE (NEGATIVE); KETONES,URINE 5 mg/dL (NEGATIVE); LEUKOCYTE ESTERASE ,URINE SMALL Leu/uL (NEGATIVE); NITRATE,URINE NEGATIVE (NEGATIVE); OCCULT BLOOD,URINE NEGATIVE (NEGATIVE); PROTEIN,URINE NEGATIVE (NEGATIVE)
[2023-01-07 16:37] LABS: APPEARANCE,URINE CLEAR (CLEAR)
[2023-01-07 16:42] LABS: BACTERIA,URINE Few /HPF (None Seen); RBC,URINE 0-1 /HPF (0-1); SQUAMOUS EPITHELIAL CELL,UR Few /HPF (0-2)
[2023-01-07 16:46] LABS: CREATININE 0.9 mg/dL (0.5-1.5); POTASSIUM 3.1 mmol/L (3.5-5.1)
[2023-01-07 16:52] LABS: TOTAL PROTEIN, SERUM 6.2 g/dL (6.0-8.3)
[2023-01-07 17:00] LABS: AMMONIA < 10 umol/L (11-32)
[2023-01-07 17:14] LABS: INR 1.08 (0.85-1.15); PROTHROMBIN TIME 11.7 SEC (9.6-11.6)
[2023-01-07 17:16] LABS: PARTIAL THROMBOPLASTIN TIME 22.5 SEC (26.3-35.5)
[2023-01-07] MEDS ORDERED: ONDANSETRON 4MG INJ IVP ONE (17:30)
[2023-01-07] MEDS ORDERED: POTASSIUM BICARB/CIT AC 25 MEQ TABLET.EFF PO ONE ×2 (18:00→19:30)
[2023-01-07] MEDS ORDERED: FAMOTIDINE 20MG VIAL IV ONE (18:30)
[2023-01-07 19:05] VITALS: BP 136/60
[2023-01-07] MEDS ORDERED: ONDA4TAB10 PO (19:54)
== END 2023-01-07 20:01 | disposition home or self-care (01) ==
LOC: EDH 15:34
DX: E87.6 Hypokalemia (principal); R11.2 Nausea with vomiting, unspecified; I50.9 Heart failure, unspecified; Z90.49 Acquired absence of other specified parts of digestive tract; Z79.899 Other long term (current) drug therapy; Z98.890 Other specified postprocedural states
CPT/HCPCS: 99283; 96374; 96375; 82550; 84484; 80053; 82140; 85025; 85610; 85730; 87040 ×2; 87088; 83605; 81001; 36415; 93005; 84132; J3490; J2405

== ENCOUNTER 2023-01-19 07:23 | Emergency (ER) | payer OTHER ==
[~2023-01-19] VITALS: Ht 167.6 cm; Wt 72.6 kg
[~2023-01-19 07:23] MED LIST changes: +ONDA4TAB10 PO
[2023-01-19 07:56] LABS: BASOPHILS % (AUTO) 1.5 % (0.0-5.0); EOSINOPHILS % (AUTO) 0.8 % (0.0-8.0); HEMATOCRIT 28.7 % (36-48); LYMPHOCYTES % (AUTO) 35.3 % (21.0-51.0); MEAN CORPUSCULAR HEMOGLOBIN 34.9 pg (27.0-33.0); MEAN CORPUSCULAR HGB CONC 33.8 g/dL (32.0-36.0); MEAN CORPUSCULAR VOLUME 103.2 fL (79-99); MONOCYTES % (AUTO) 6.4 % (3.0-13.0); NEUTROPHILS % (AUTO) 55.7 % (40.0-77.0); PLATELET COUNT (AUTO) 340 K/uL (130-400); RED BLOOD CELL COUNT(AUTO) 2.78 MIL/uL (4.00-5.50); RED CELL DISTRIBUTION WIDTH 17.2 % (11.0-15.5)
[2023-01-19 08:13] LABS: ALANINE AMINOTRANSFERASE 18 U/L (12-78); ALBUMIN 2.9 g/dL (3.5-5.0); ASPARTATE AMINOTRANSFERASE 20 U/L (10-37); CARBON DIOXIDE 25 mmol/L (21-32); CHLORIDE 104 mmol/L (101-111); CREATININE 0.5 mg/dL (0.5-1.5); GLOMERULAR FILTR. RATE CALC 96 mL/min (>90); GLUCOSE,RANDOM 81 mg/dL (70-105); POTASSIUM 3.8 mmol/L (3.5-5.1); SODIUM SERUM 140 mmol/L (136-145); UREA NITROGEN, BLOOD 5 mg/dL (7-18)
[2023-01-19 10:52] VITALS: BP 136/70
== END 2023-01-19 11:35 | disposition home or self-care (01) ==
LOC: EDH 07:23
DX: S01.01XA Laceration without foreign body of scalp, initial encounter (principal); F03.90 Unspecified dementia, unspecified severity, without behavioral disturbance, psychotic disturbance, mood disturbance, and anxiety; Z79.899 Other long term (current) drug therapy; Z88.5 Allergy status to narcotic agent; Z95.810 Presence of automatic (implantable) cardiac defibrillator; W19.XXXA Unspecified fall, initial encounter; Y93.89 Activity, other specified; Y92.89 Other specified places as the place of occurrence of the external cause; Y99.8 Other external cause status
CPT/HCPCS: 12001; 36415; 70450; 71045; 72125; 72170; 80053; 84484; 85025; 93005

== ENCOUNTER → 2023-04-26 | Outpatient (CLI) | payer OTHER ==
[2023-04-26 16:38] LABS: CREATININE 0.9 mg/dL (0.5-1.5); POTASSIUM 3.8 mmol/L (3.5-5.1)
== END | disposition home or self-care (01) ==
LOC: LAB 15:38
PROVIDERS: ATTEND Internal Medicine Cardiovascular Disease
DX: I10 Essential (primary) hypertension (principal)
CPT/HCPCS: 36415; 80048

== ENCOUNTER 2024-01-28 19:55 | Emergency (ER) | payer OTHER ==
[~2024-01-28] VITALS: Ht 162.6 cm; Wt 59.0 kg
[~2024-01-28 19:55] MED LIST changes: -GABA300C PO; -METO-408 PO; +METO-409 PO; +MIRT-93 PO; +MV-M1TAB45 PO; -ONDA4TAB10 PO; -TEMA30CA PO; +VIT1CAPS47 PO
[2024-01-28 19:57] VITALS: BP 133/83; PULSE 97; RESP 16; O2SAT 97
[2024-01-28 20:28] LABS: HEMATOCRIT 33.7 % (36-48); MEAN CORPUSCULAR HEMOGLOBIN 34.4 pg (27.0-33.0); MEAN CORPUSCULAR HGB CONC 35.9 g/dL (32.0-36.0); MEAN CORPUSCULAR VOLUME 95.7 fL (79-99); PLATELET COUNT (AUTO) 361 K/uL (130-400); RED BLOOD CELL COUNT(AUTO) 3.52 MIL/uL (4.00-5.50); RED CELL DISTRIBUTION WIDTH 15.7 % (11.0-15.5); WHITE BLOOD COUNT (AUTO) 5.9 K/uL (4.8-10.8)
[2024-01-28] MEDS ORDERED: FAMOTIDINE 20MG VIAL IV ONE (20:30)
[2024-01-28] MEDS ORDERED: ONDANSETRON 4MG INJ IVP ONE (20:30)
[2024-01-28 20:33] LABS: BASOPHILS # (AUTO) 0.04 K/uL (0.00-0.20); BASOPHILS % (AUTO) 0.7 % (0.0-5.0); EOSINOPHILS # (AUTO) 0.07 K/uL (0.00-0.70); EOSINOPHILS % (AUTO) 1.2 % (0.0-8.0); IMMATURE GRANULOCYTE ABSOLUTE 0.02 K/uL (0-1); LYMPHOCYTES # (AUTO) 1.4 K/uL (1.0-4.8); LYMPHOCYTES % (AUTO) 24.2 % (21.0-51.0); MONOCYTES # (AUTO) 0.6 K/uL (0.1-1.0); MONOCYTES % (AUTO) 10.6 % (3.0-13.0); NEUTROPHILS # (AUTO) 3.7 K/uL (1.8-7.7)
[2024-01-28 20:38] LABS: CREATININE 1.3 mg/dL (0.5-1.0); POTASSIUM 4.9 mmol/L (3.5-5.1)
[2024-01-28 20:40] LABS: INR <= 0.93 (0.85-1.15); PROTHROMBIN TIME 10.7 SEC (9.6-11.6)
[2024-01-28 20:42] LABS: ALBUMIN 3.2 g/dL (3.5-5.0); BILIRUBIN,TOTAL 0.6 mg/dL (0.2-1.0); PARTIAL THROMBOPLASTIN TIME 25.1 SEC (26.3-35.5); TOTAL PROTEIN, SERUM 6.6 g/dL (6.0-8.3)
== END 2024-01-28 22:39 | disposition left against medical advice (07) ==
LOC: EDH 19:55
DX: R11.2 Nausea with vomiting, unspecified (principal); R19.7 Diarrhea, unspecified; F41.9 Anxiety disorder, unspecified; I10 Essential (primary) hypertension; Z79.899 Other long term (current) drug therapy; Z88.5 Allergy status to narcotic agent; Z95.810 Presence of automatic (implantable) cardiac defibrillator
CPT/HCPCS: 36415; 80053; 83605; 83690; 84145; 84484; 85025; 85610; 85730; 93005

== ENCOUNTER 2024-02-29 18:25 | Emergency (ER) | payer OTHER ==
[2024-02-29 19:06] LABS: CHLORIDE 99 mmol/L (101-111); SODIUM SERUM 135 mmol/L (136-145)
[2024-02-29 19:15] LABS: CARBON DIOXIDE 23 mmol/L (21-32); CREATININE 1.3 mg/dL (0.5-1.0); GLOMERULAR FILTR. RATE CALC 42 mL/min (>90); GLUCOSE,RANDOM 149 mg/dL (70-105); POTASSIUM 5.1 mmol/L (3.5-5.1); UREA NITROGEN, BLOOD 15 mg/dL (7-18)
[2024-02-29 19:23] LABS: ALANINE AMINOTRANSFERASE 26 U/L (12-78); ALCOHOL, BLOOD < 3 mg/dL (0-10); ASPARTATE AMINOTRANSFERASE 29 U/L (10-37); BILIRUBIN,TOTAL 0.3 mg/dL (0.2-1.0); TOTAL PROTEIN, SERUM 6.5 g/dL (6.0-8.3)
[2024-02-29 20:38] LABS: BASOPHILS # (AUTO) 0.06 K/uL (0.00-0.20); EOSINOPHILS # (AUTO) 0.27 K/uL (0.00-0.70); EOSINOPHILS % (AUTO) 4.6 % (0.0-8.0); HEMATOCRIT 33.9 % (36-48); IMMATURE GRANULOCYTE ABSOLUTE 0.01 K/uL (0-1); LYMPHOCYTES # (AUTO) 1.9 K/uL (1.0-4.8); LYMPHOCYTES % (AUTO) 32.8 % (21.0-51.0); MEAN CORPUSCULAR HEMOGLOBIN 34.3 pg (27.0-33.0); MEAN CORPUSCULAR HGB CONC 34.8 g/dL (32.0-36.0); MEAN CORPUSCULAR VOLUME 98.5 fL (79-99); MONOCYTES # (AUTO) 0.8 K/uL (0.1-1.0); NEUTROPHILS # (AUTO) 2.8 K/uL (1.8-7.7); NEUTROPHILS % (AUTO) 48.4 % (40.0-77.0); PLATELET COUNT (AUTO) 201 K/uL (130-400); RED BLOOD CELL COUNT(AUTO) 3.44 MIL/uL (4.00-5.50); RED CELL DISTRIBUTION WIDTH 14.5 % (11.0-15.5); WHITE BLOOD COUNT (AUTO) 5.9 K/uL (4.8-10.8)
[2024-02-29 20:49] LABS: INR 0.99 (0.85-1.15); PROTHROMBIN TIME 10.7 SEC (9.6-11.6)
[2024-02-29 20:50] LABS: PARTIAL THROMBOPLASTIN TIME 23.5 SEC (26.3-35.5)
[2024-02-29 22:33] LABS: APPEARANCE,URINE CLEAR (CLEAR); BILIRUBIN,URINE NEGATIVE (NEGATIVE); COLOR,URINE COLORLESS (YELLOW); GLUCOSE, URINE (UA) NEGATIVE (NEGATIVE); KETONES,URINE NEGATIVE (NEGATIVE); LEUKOCYTE ESTERASE ,URINE NEGATIVE Leu/uL (NEGATIVE); NITRATE,URINE NEGATIVE (NEGATIVE); OCCULT BLOOD,URINE NEGATIVE (NEGATIVE); PROTEIN,URINE NEGATIVE (NEGATIVE); UROBILINOGEN,URINE 0.2 mg/dL (0.2-1.0)
[2024-02-29 22:39] LABS: BACTERIA,URINE RARE /HPF (None Seen); RBC,URINE 0-1 /HPF (0-1); SQUAMOUS EPITHELIAL CELL,UR RARE /HPF (0-2); WBC,URINE 0-1 /HPF (0-1)
[2024-02-29 22:41] LABS: AMPHET/METH SCREEN,URINE NEGATIVE (NEGATIVE); BARBITURATE SCREEN, URINE NEGATIVE (NEGATIVE); BENZODIAZEPINES SCREEN,URINE NEGATIVE (NEGATIVE); CANNABINOID SCREEN,URINE POSITIVE (NEGATIVE); COCAINE SCREEN,URINE NEGATIVE (NEGATIVE); OPIATE SCREEN,URINE NEGATIVE (NEGATIVE); PHENCYCLIDINE SCREEN,URINE NEGATIVE (NEGATIVE)
[2024-02-29] MEDS: 0.9%NACL 1000ML 1,000 ML IV ONE (23:13)
== END 2024-02-29 23:22 | disposition home or self-care (01) ==
LOC: EDH 18:25
DX: R53.1 Weakness (principal); F41.9 Anxiety disorder, unspecified; I10 Essential (primary) hypertension; F12.90 Cannabis use, unspecified, uncomplicated; Z88.5 Allergy status to narcotic agent; Z79.899 Other long term (current) drug therapy; Z95.810 Presence of automatic (implantable) cardiac defibrillator
CPT/HCPCS: 99284; 71045; 81001; 84484; 80053; 80305; 85025; 85610; 85730; 83605; 36415; 93005; J7030

== ENCOUNTER 2024-03-16 14:13 | Observation (INO) | payer OTHER ==
[~2024-03-16] VITALS: Ht 160 cm; Wt 72.6 kg
[2024-03-16 15:14] LABS: SARS-CoV-2, RNA, NAAT NEGATIVE SARS CoV-2 (NEGATIVE)
[2024-03-16 15:18] LABS: INFLUENZA TYPE A Negative For Type A (NEGATIVE); INFLUENZA TYPE B Negative For Type B (NEGATIVE)
[2024-03-16 15:35] LABS: BASOPHILS # (AUTO) 0.04 K/uL (0.00-0.20); BASOPHILS % (AUTO) 0.9 % (0.0-5.0); EOSINOPHILS # (AUTO) 0.07 K/uL (0.00-0.70); EOSINOPHILS % (AUTO) 1.5 % (0.0-8.0); HEMATOCRIT 33.7 % (36-48); IMMATURE GRANULOCYTE ABSOLUTE 0.01 K/uL (0-1); LYMPHOCYTES # (AUTO) 1.3 K/uL (1.0-4.8); LYMPHOCYTES % (AUTO) 27.9 % (21.0-51.0); MEAN CORPUSCULAR HEMOGLOBIN 34.6 pg (27.0-33.0); MEAN CORPUSCULAR HGB CONC 36.5 g/dL (32.0-36.0); MEAN CORPUSCULAR VOLUME 94.7 fL (79-99); MONOCYTES # (AUTO) 0.6 K/uL (0.1-1.0); MONOCYTES % (AUTO) 12.2 % (3.0-13.0); NEUTROPHILS # (AUTO) 2.6 K/uL (1.8-7.7); NEUTROPHILS % (AUTO) 57.3 % (40.0-77.0); PLATELET COUNT (AUTO) 217 K/uL (130-400); RED BLOOD CELL COUNT(AUTO) 3.56 MIL/uL (4.00-5.50); RED CELL DISTRIBUTION WIDTH 14.4 % (11.0-15.5); WHITE BLOOD COUNT (AUTO) 4.6 K/uL (4.8-10.8)
[2024-03-16 15:45] LABS: CREATININE 0.8 mg/dL (0.5-1.0); POTASSIUM 4.5 mmol/L (3.5-5.1)
[2024-03-16 15:53] LABS: B-TYPE NATRIURETIC PEPTIDE 158 pg/mL (0-100)
[2024-03-16 19:15] LABS: APPEARANCE,URINE CLEAR (CLEAR); BILIRUBIN,URINE 0.5 mg/dL (NEGATIVE); COLOR,URINE YELLOW (YELLOW); GLUCOSE, URINE (UA) NEGATIVE (NEGATIVE); KETONES,URINE 40 mg/dL (NEGATIVE); LEUKOCYTE ESTERASE ,URINE 25 Leu/uL (NEGATIVE); MUCUS,URINE RARE LPF (None Seen); NITRATE,URINE NEGATIVE (NEGATIVE); OCCULT BLOOD,URINE NEGATIVE (NEGATIVE); OTHER CASTS, URINE 1 /LPF (None Seen); PROTEIN,URINE 10 mg/dL (NEGATIVE); RBC,URINE 0-1 /HPF (0-1); SQUAMOUS EPITHELIAL CELL,UR FEW /HPF (0-2)
[2024-03-16] MEDS ORDERED: ACETAMINOPHEN 325 MG TAB PO PRN (20:30)
[2024-03-16] MEDS: DEXTROSE 5 %-0.45 % NACL 1,000 ML IV SCH (20:36)
[2024-03-16 21:15] VITALS: BP 157/88; PULSE 100; RESP 20
[2024-03-16] MEDS ORDERED: QUET50TA24 PO (21:43)
[2024-03-16] MEDS ORDERED: CALCIUM (21:43)
[2024-03-16] MEDS ORDERED: ZOLP10TA2 PO (21:43)
[2024-03-16] MEDS ORDERED: METO-391 PO (21:43)
[2024-03-16 23:06] VITALS: BP 132/79; PULSE 100; RESP 19
[2024-03-17] VITALS (7 sets, daily range): BP systolic 110–151; BP diastolic 69–88; PULSE 95–103; RESP 16–18; O2SAT 100
[2024-03-17] MEDS: ZOLPIDEM TARTRATE 5 MG TAB PO PRN (01:13)
[2024-03-17 04:50] LABS: BASOPHILS # (AUTO) 0.04 K/uL (0.00-0.20); BASOPHILS % (AUTO) 0.8 % (0.0-5.0); EOSINOPHILS # (AUTO) 0.12 K/uL (0.00-0.70); EOSINOPHILS % (AUTO) 2.3 % (0.0-8.0); IMMATURE GRANULOCYTE ABSOLUTE 0.02 K/uL (0-1); LYMPHOCYTES # (AUTO) 1.7 K/uL (1.0-4.8); LYMPHOCYTES % (AUTO) 32.4 % (21.0-51.0); MEAN CORPUSCULAR HEMOGLOBIN 35.1 pg (27.0-33.0); MEAN CORPUSCULAR HGB CONC 35.8 g/dL (32.0-36.0); MEAN CORPUSCULAR VOLUME 98.2 fL (79-99); MONOCYTES # (AUTO) 0.5 K/uL (0.1-1.0); MONOCYTES % (AUTO) 10.2 % (3.0-13.0); NEUTROPHILS # (AUTO) 2.8 K/uL (1.8-7.7); NEUTROPHILS % (AUTO) 53.9 % (40.0-77.0); PLATELET COUNT (AUTO) 185 K/uL (130-400); RED BLOOD CELL COUNT(AUTO) 3.36 MIL/uL (4.00-5.50); RED CELL DISTRIBUTION WIDTH 14.4 % (11.0-15.5); WHITE BLOOD COUNT (AUTO) 5.2 K/uL (4.8-10.8)
[2024-03-17 05:13] LABS: CREATININE 0.8 mg/dL (0.5-1.0); POTASSIUM 3.9 mmol/L (3.5-5.1)
[2024-03-17] MEDS: ONDANSETRON 4MG INJ IVP PRN (08:02)
[2024-03-17] MEDS: MV MIN PO SCH (09:00)
[2024-03-17] MEDS: VITK PO SCH (09:00)
[2024-03-17] MEDS: FOLIC PO SCH (09:00)
[2024-03-17] MEDS: CALCIUM PO SCH (09:00)
[2024-03-17] MEDS: SACUBITRIL/VALSARTAN 1 EACH TABLET PO SCH (09:00)
[2024-03-17] MEDS: FUROSEMIDE 20 MG TABLET PO SCH (09:00)
[2024-03-17] MEDS: IRON PO SCH (09:00)
[2024-03-17] MEDS: PANTOPRAZOLE 40 MG TAB DR PO SCH (09:00)
[2024-03-17] MEDS: METOPROLOL SUCCINATE 50 MG TAB.SR.24H PO SCH (09:00)
[2024-03-17] MEDS ORDERED: PANTOPRAZOLE 40 MG/VIAL IVP SCH (09:00)
[2024-03-17] MEDS: DRONEDARONE HYDROCHLORIDE 400 MG TABLET PO SCH (09:00)
[2024-03-17] MEDS: MIRTAZAPINE 15 MG TABLET PO SCH (09:00)
[2024-03-17] MEDS: QUETIAPINE FUMARATE 25 MG TAB PO SCH (09:00)
[2024-03-17] MEDS ORDERED: NON-FORMULARY MEDICATION 1 EACH (Zolpidem Tartrate (Ambien) 10 MG) PO SCH (21:00)
[2024-03-17] MEDS: ZOLPIDEM TARTRATE 5 MG TAB PO SCH (21:03)
[2024-03-18] MEDS ORDERED: DIPHENHYDRAMINE HCL 25 MG CAPSULE PO ONE (00:30)
[2024-03-18] MEDS ORDERED: DIPHENHYDRAMINE HCL 25 MG CAPSULE ONE (00:50)
[2024-03-18 03:15] VITALS: BP 111/68; PULSE 95; RESP 20
[2024-03-18 05:58] LABS: BASOPHILS # (AUTO) 0.03 K/uL (0.00-0.20); BASOPHILS % (AUTO) 0.6 % (0.0-5.0); EOSINOPHILS # (AUTO) 0.16 K/uL (0.00-0.70); EOSINOPHILS % (AUTO) 3.4 % (0.0-8.0); HEMATOCRIT 33.4 % (36-48); IMMATURE GRANULOCYTE ABSOLUTE 0.01 K/uL (0-1); LYMPHOCYTES # (AUTO) 1.5 K/uL (1.0-4.8); LYMPHOCYTES % (AUTO) 31.6 % (21.0-51.0); MEAN CORPUSCULAR HEMOGLOBIN 34.2 pg (27.0-33.0); MEAN CORPUSCULAR HGB CONC 33.8 g/dL (32.0-36.0); MEAN CORPUSCULAR VOLUME 101.2 fL (79-99); MONOCYTES # (AUTO) 0.5 K/uL (0.1-1.0); MONOCYTES % (AUTO) 11.4 % (3.0-13.0); NEUTROPHILS # (AUTO) 2.5 K/uL (1.8-7.7); NEUTROPHILS % (AUTO) 52.8 % (40.0-77.0); PLATELET COUNT (AUTO) 187 K/uL (130-400); RED CELL DISTRIBUTION WIDTH 14.8 % (11.0-15.5); WHITE BLOOD COUNT (AUTO) 4.8 K/uL (4.8-10.8)
[2024-03-18 06:19] LABS: ALBUMIN 2.7 g/dL (3.5-5.0); BILIRUBIN,TOTAL 0.6 mg/dL (0.2-1.0); CREATININE 0.9 mg/dL (0.5-1.0); POTASSIUM 3.5 mmol/L (3.5-5.1); TOTAL PROTEIN, SERUM 5.6 g/dL (6.0-8.3)
[2024-03-18 07:42] VITALS: BP 129/79; PULSE 97; RESP 18
[2024-03-18 08:00] VITALS: O2SAT 96
== END 2024-03-18 10:25 | disposition home or self-care (01) ==
LOC: EDH 14:13 → EDHIP 20:14 → 4BH 21:04
PROVIDERS: ADMIT Internal Medicine; ATTEND Internal Medicine
DX: A08.4 Viral intestinal infection, unspecified (principal); Z20.822 Contact with and (suspected) exposure to COVID-19; E86.0 Dehydration; R62.7 Adult failure to thrive; E78.00 Pure hypercholesterolemia, unspecified; I11.0 Hypertensive heart disease with heart failure; I50.9 Heart failure, unspecified; E11.9 Type 2 diabetes mellitus without complications; I49.9 Cardiac arrhythmia, unspecified; Z88.5 Allergy status to narcotic agent; Z79.899 Other long term (current) drug therapy; Z95.810 Presence of automatic (implantable) cardiac defibrillator
CPT/HCPCS: 99284; 84484; 80048 ×2; 83880; 85025 ×3; 87804 ×2; 83605; 81001; 36415 ×3; 87635; 71045; 74176; 96374; 96376; 96361; 80053; G0378 ×38; J7042; J2405 ×3; Q0163

== ENCOUNTER → 2024-04-18 | Emergency (ER) | payer OTHER ==
[~2024-04-18] VITALS: Ht 160 cm; Wt 70.3 kg
[~2024-04-18] MED LIST changes: +ACET-66 PO; +ACID1GRA4 PO; +LEVO750T68 PO; +METO-391 PO; -METO-409 PO; -MONT-47 PO; +NAPR-1084 PO; +ONDA-243 PO; +QUET50TA24 PO; +ZOLP10TA2 PO
[2024-04-18 13:16] LABS: BASOPHILS # (AUTO) 0.07 K/uL (0.00-0.20); BASOPHILS % (AUTO) 1.6 % (0.0-5.0); EOSINOPHILS # (AUTO) 0.04 K/uL (0.00-0.70); EOSINOPHILS % (AUTO) 0.9 % (0.0-8.0); HEMATOCRIT 31.4 % (36-48); IMMATURE GRANULOCYTE ABSOLUTE 0.01 K/uL (0-1); LYMPHOCYTES # (AUTO) 1.6 K/uL (1.0-4.8); LYMPHOCYTES % (AUTO) 35.5 % (21.0-51.0); MEAN CORPUSCULAR HEMOGLOBIN 34.8 pg (27.0-33.0); MEAN CORPUSCULAR HGB CONC 36.3 g/dL (32.0-36.0); MEAN CORPUSCULAR VOLUME 95.7 fL (79-99); MONOCYTES # (AUTO) 0.6 K/uL (0.1-1.0); MONOCYTES % (AUTO) 12.7 % (3.0-13.0); NEUTROPHILS # (AUTO) 2.2 K/uL (1.8-7.7); NEUTROPHILS % (AUTO) 49.1 % (40.0-77.0); PLATELET COUNT (AUTO) 198 K/uL (130-400); RED BLOOD CELL COUNT(AUTO) 3.28 MIL/uL (4.00-5.50); RED CELL DISTRIBUTION WIDTH 14.2 % (11.0-15.5); WHITE BLOOD COUNT (AUTO) 4.4 K/uL (4.8-10.8)
[2024-04-18] MEDS: 0.9% NACL 500ML IV.SOLN 500 ML IV ONE (13:16)
[2024-04-18 13:23] LABS: CREATININE 0.8 mg/dL (0.5-1.0); POTASSIUM 3.8 mmol/L (3.5-5.1)
[2024-04-18 13:39] LABS: B-TYPE NATRIURETIC PEPTIDE 118 pg/mL (0-100)
[2024-04-18 13:52] LABS: APPEARANCE,URINE CLEAR (CLEAR); BILIRUBIN,URINE NEGATIVE (NEGATIVE); COLOR,URINE COLORLESS (YELLOW); GLUCOSE, URINE (UA) NEGATIVE (NEGATIVE); KETONES,URINE NEGATIVE (NEGATIVE); LEUKOCYTE ESTERASE ,URINE NEGATIVE Leu/uL (NEGATIVE); NITRATE,URINE NEGATIVE (NEGATIVE); OCCULT BLOOD,URINE NEGATIVE (NEGATIVE); PROTEIN,URINE NEGATIVE (NEGATIVE); UROBILINOGEN,URINE 0.2 mg/dL (0.2-1.0)
[2024-04-18 14:09] LABS: ADD UA MICROSCOPIC NO
[2024-04-18 16:02] VITALS: BP 130/72; PULSE 100; RESP 20; O2SAT 95
== END ==
LOC: EDH 12:49 → EEVIPCON 12:49
DX: E86.0 Dehydration (principal); M94.0 Chondrocostal junction syndrome [Tietze]; R19.7 Diarrhea, unspecified; I11.0 Hypertensive heart disease with heart failure; I50.9 Heart failure, unspecified; E11.9 Type 2 diabetes mellitus without complications; E78.00 Pure hypercholesterolemia, unspecified; I21.9 Acute myocardial infarction, unspecified; K21.9 Gastro-esophageal reflux disease without esophagitis; Z79.899 Other long term (current) drug therapy; Z88.5 Allergy status to narcotic agent; Z95.810 Presence of automatic (implantable) cardiac defibrillator
CPT/HCPCS: 99284; 71045; 82550; 84484; 80048; 83880; 85025; 81003; 36415; 93005; J7040

== ENCOUNTER 2024-07-24 19:29 | Inpatient (IN) | payer OTHER ==
[~2024-07-24] VITALS: Ht 160 cm; Wt 68.1 kg
[~2024-07-24 19:29] MED LIST changes: -LEVO750T68 PO; +MIDO5TAB4 PO; -MIRT-93 PO; -MV-M1TAB45 PO; -NAPR-1084 PO; -QUET50TA24 PO; -VIT1CAPS47 PO
--- NOTE | 2024-07-24 20:06 | ERN ---
General Chief Complaint: Shortness of Breath Stated Complaint: SHORTNESS OF BREATH Time Seen by MD: 19:30 Source: patient, EMS History of Present Illness Initial Comments Patient is a 78-year-old female coming in to be evaluated for generalized body weakness and shortness of breath. Per EMS patient was recently discharged from hospital due to shortness of breath secondary to CHF exacerbation. Allergies: Coded Allergies: codeine (Unverified Allergy, Unknown, 02/19/19) Home Meds Active Scripts Acidophilus/Bulgaricus (Floranex Granules Packet) 100 Million Cell Gran.pack, 1 EACH PO TID for diarrhea, #30 PACK Prov:ТАТЬЯНА WETZEL MD 04/18/24 Ondansetron (Ondansetron Odt) 4 Mg Tab.rapdis, 4 MG PO Q6HPRN for nausea, #15 TAB Prov:ТАТЬЯНА WETZEL MD 04/18/24 Acetaminophen (Tylenol) 500 Mg Tab, 500 MG PO Q6HPRN, #30 TAB Prov:ТАТЬЯНА WETZEL MD 04/18/24 Dronedarone Hydrochloride (Multaq) 400 Mg Tablet, 400 MG PO BID, #60 TAB 3 Refills Prov:ALBIN ALMENDAREZ MD 12/09/22 Reported Medications Midodrine HCl (Midodrine HCl) 5 Mg Tablet, 1 TAB PO TID 07/19/24 Zolpidem Tartrate (Ambien) 10 Mg Tablet, 10 MG PO HS, TAB 03/16/24 Metoprolol Succinate (Metoprolol Succinate) 50 Mg Tab.er.24h, 50 MG PO DAILY, TAB 03/16/24 Sacubitril/Valsartan (Entresto 49 mg-51 mg Tablet) 1 Each Tablet, 1 EACH PO BID, TAB 12/07/22 Furosemide (Furosemide) 20 Mg Tablet, 20 MG PO AM, TAB 02/19/19 Pantoprazole Sodium (Pantoprazole Sodium) 40 Mg Tablet.dr, 40 MG PO BID, TAB 02/19/19 Past Medical History Past Medical History: A-Fib, CHF, Dementia, GERD Medical History Other: HYPOTENSION Past Surgical History: Pacer/AICD Family History Family History: CAD, HTN Social History Social History: Negative, Lives with family ROS Dictation CONSTITUTIONAL: No chills, no fever, no weakness, no diaphoresis, no malaise. HEAD/FACE: No signs of trauma. EENT: No eye pain, no blurred vision, no tearing, no double vision, no ear pain, no ear discharge, no nose pain, no nasal congestion, no throat pain, no throat swelling, no mouth pain. RESPIRATORY: cough, no orthopnea, SOB, stridor, no wheezing. CARDIOVASCULAR: No chest pain, no edema, no palpitations, no syncope. GASTROINTESTINAL/ABDOMINAL: No abdominal pain, no constipation, no diarrhea, no nausea, no vomiting. GENITOURINARY: No abnormal discharge, no dysuria, no frequent urination, no hematuria. No complaints of pain in the genitals. MUSCULOSKELETAL: No back pain, no gout, no joint pain, no joint swelling, no muscle pain, no muscle stiffness, no neck pain. INTEGUMENTARY: No change in color, no change in hair/nails, no dryness, no lesion, no lumps, no rash. NEUROLOGICAL/PSYCH: No anxiety, not depressed, no emotional problem, no headache, no numbness, no pre-existing deficit, no history of seizures, no tremors, no weakness. HEMATOLOGIC/LYMPHATIC: Not anemic, no history of blood clots, no apparent bleeding, no bruising, glands not swollen. All Systems Negative, Except as Noted. Physical Exam Physical Exam Dictation VITAL SIGNS: Reviewed. GENERAL APPEARANCE: Alert, oriented x3, no acute distress, obese. HEAD AND FACE: Non-traumatic. EYES: PERRL, pink conjunctivas, eyelid no trauma, anterior chamber clear. EARS: Pinnas intact and no signs of trauma or erythema. Ear canals clear and no discharge. TMs no erythema. NOSE: No discharge, no bleeding. OROPHARYNX: Mouth normal, teeth no caries, tongue pink. Pharynx clear, no erythema. Tonsils no exudates, no abscesses noted. Mucous membrane moist. NECK: Supple, non-tender, no thyromegaly, no masses, no JVD, no bruits. BREAST: Deferred. CHEST: No tenderness, no crepitus, no paradoxical movement, no retractions. LUNGS: Clear, well-ventilated, symmetric, rales, no wheezing, rhonchi, no stridor, good breath sounds bilaterally. HEART: Regular rate, regular rhythm, no murmur, no gallops. VASCULAR: No peripheral edema. ABDOMEN: Soft, positive bowel sounds, nondistended, no guarding, nontender, no rebound, no masses no hepatomegaly, no splenomegaly, no Broussard's sign, no hernias. RECTAL: Deferred. GENITAL: Deferred. NEUROLOGICAL: Normal speech, gross motor function intact, gross sensory f unction intact. MUSCULOSKELETAL: Neck nontender, full range of motion, back nontender, full range of motion. EXTREMITIES: Nontender, full range of motion. SKIN: Color pink, dry, no turgor, no rash, no lacerations, no abrasions, no contusions. LYMPHATICS: Deferred. Results Laboratory and Microbiology Lab and Micro Result Laboratory Tests Test 07/24/24 21:30 07/24/24 21:58 Sodium Level 136 mmol/L (136-145) Potassium Level 3.9 mmol/L (3.5-5.1) Chloride Level 107 mmol/L (101-111) Carbon Dioxide Level 21 mmol/L (21-32) Blood Urea Nitrogen 13 mg/dL (7-18) Creatinine 1.2 mg/dL (0.5-1.0) H Glomerular Filtration Rate Calc 46 mL/min (>90) Random Glucose 165 mg/dL (70-105) #H Lactic Acid Level 1.7 mmol/L (0.8-2.5) Total Calcium 8.6 mg/dL (8.5-10.1) Magnesium Level 1.50 mg/dL (1.80-2.40) L Total Creatine Kinase 52 U/L (21-232) # Troponin I High Sensitivity 379 ng/L (4-50) *H White Blood Count 7.2 K/uL (4.8-10.8) # Red Blood Count 2.98 MIL/uL (4.00-5.50) L Hemoglobin 10.1 g/dL (12.0-16.0) L Hematocrit 29.0 % (36-48) L Mean Corpuscular Volume 97.3 fL (79-99) Mean Corpuscular Hemoglobin 33.9 pg (27.0-33.0) H Mean Corpuscular Hemoglobin Concent 34.8 g/dL (32.0-36.0) Red Cell Distribution Width 15.6 % (11.0-15.5) H Platelet Count 191 K/uL (130-400) Mean Platelet Volume 10.0 fL (7.5-10.5) Immature Granulocyte % (Auto) 0.3 % (0-1) Neutrophils (%) (Auto) 62.6 % (40.0-77.0) Lymphocytes (%) (Auto) 23.1 % (21.0-51.0) Monocytes (%) (Auto) 12.7 % (3.0-13.0) Eosinophils (%) (Auto) 0.6 % (0.0-8.0) Basophils (%) (Auto) 0.7 % (0.0-5.0) Neutrophils # (Auto) 4.5 K/uL (1.8-7.7) Lymphocytes # (Auto) 1.7 K/uL (1.0-4.8) Monocytes # (Auto) 0.9 K/uL (0.1-1.0) Eosinophils # (Auto) 0.04 K/uL (0.00-0.70) Basophils # (Auto) 0.05 K/uL (0.00-0.20) Absolute Immature Granulocyte (auto 0.02 K/uL (0-1) Nucleated Red Blood Cells 0.0 % (0.0-0.19) B-Type Natriuretic Peptide 2090 pg/mL (0-100) H Labs Reviewed?: Yes EKG/XRAY/US/CT/MRI EKG Comment 07/24/2024 time 7:58 p.m. Ventricular rate [address] wave elevation or depression DE 90 X-RAY Comment IMAGING REPORT Signed PATIENT: MARTHA TALAMANTES MR#: [id number] : 1945 SEX: F AGE: 78 LOCATION: [facility] ORDER 35 STATUS: REG REPORT#: [id number] SERVICE 33 REASON: sob ORDERING PHYSICIAN: JOCY HOPKINS MD PROCEDURE: CXR1VW - CHEST 1VW CHEST 1VW REASON: sob COMPARISON: 07/19/2024 FINDINGS: Heart is upper limits of normal in size. There is [id number] pulmonary vascular congestion. Peripheral portions of the lungs are clear. There is no pleural effusion. Pacemaker remains in place. IMPRESSION: 1. Mild to moderate pulmonary vascular congestion. DICTATED BY: NARCIAS BERNSTEIN MD DATE: 07/24/242038 ELECTRONICALLY SIGNED BY: NARCISA BERNSTEIN MD DATE: 07/24/242041 [facility] MDM: Differential diagnosis: Chronic CHF, ACS, shortness of breath, respiratory distress Rationale: Tests considered and ordered secondary to shared decision making include: labs, ECG and radiology Previous outside records reviewed: Old ER visits. Risk of complication and/or morbidity or mortality of patient management: None Medications-Per medication reconciliation Need for hospitalization: Patient does meet criteria for hospitalization. Need for emergency major/minor surgery: No There are no social concerns with this patient. Prescription drug management Prescriptions will include symptomatic care Patient's prior external medical records from other ER visits were reviewed by me as indicated. Prior testing and results from previous visits were reviewed. Prior tests were taken into account with medical decision making and resource utilization, independent historian/historians were used to obtain complete medical history. I independently interpreted the test that were performed, results were reviewed by me and considered findings on radiology if ordered. Medical management and examination interpretation discussions were had by me with other qualified healthcare professionals as indicated for the patient's care. Patient is a 78-year-old female coming in to be evaluated for shortness of breath. Patient has a history of congestive heart failure and was recently discharged. Per patient she was having shortness of breath decided to come in to be re-evaluated. Laboratory workup positive for elevated BNP of 2000 and troponin of 300. Patient will be admitted under the care of Dr. Carrillo. ED Course Orders Procedure Category Date Status Time Chest 1vw RAD 07/24/24 Resulted 19:34 12 Lead Ekg Tracing- EKG 07/24/24 Logged Technical 19:34 Magnesium LAB 07/24/24 Complete 19:34 Creatine Kinase, Total LAB 07/24/24 Complete 19:34 Troponin I High LAB 07/24/24 Complete Sensitivity 19:34 Urinalysis Profile LAB 07/24/24 Logged 19:34 Basic Metabolic Panel LAB 07/24/24 Complete 19:34 Lactic Acid LAB 07/24/24 Complete 19:34 Blood Cult MARLENY 07/24/24 In Process 19:34 Ipratropium/Albuterol PHA 07/24/24 Complete Neb (Duoneb) 21:00 Dexamethasone 4mg/Ml PHA 07/24/24 Complete 1ml Vial (Dexametha 21:00 Cbc With Differential LAB 07/24/24 Complete 21:45 B-Type Natriuretic LAB 07/24/24 Complete Peptide 21:45 Hydroxyzine 25mg Tab PHA 07/24/24 Complete (Atarax 25mg Tab) 22:00 Partial LAB 07/24/24 In Process Thromboplastin Time 22:00 Nitroglycerin 0.4mg PHA 07/24/24 Complete Sl Tab (Nitrostat) 22:32 Troponin I High LAB 07/24/24 In Process Sensitivity 22:33 Nitroglycerin 0.4mg PHA 07/24/24 Complete Sl Tab (Nitrostat) 22:33 Prothrombin Time With LAB 07/24/24 In Process INR 22:00 Current Medications Medications (Trade) Dose Ordered Sig/Gilbert Route PRN Reason Start Time Stop Time Status Last Admin Dose Admin Albuterol (DUOneb) 2 udvial ONCE ONCE IH 07/24/24 21:00 07/24/24 21:01 DC 07/24/24 21:24 Dexamethasone Sodium Phosphate (dexaMETHasone 4MG/ML 1ML VIAL) 4 mg ONCE ONCE IM 07/24/24 21:00 07/24/24 21:01 DC 07/24/24 21:23 Hydroxyzine HCl (ATArax 25MG TAB) 25 mg ONCE ONCE PO 07/24/24 22:00 07/24/24 22:01 DC 07/24/24 22:11 Nitroglycerin (Nitrostat) 0.4 mg AD STAT SL 07/24/24 22:32 07/24/24 22:34 DC 07/24/24 22:37 Nitroglycerin (Nitrostat) 0.4 mg STK-MED ONCE SL 07/24/24 22:33 07/24/24 22:33 DC Vital Signs Date Time Temp Pulse Resp B/P (MAP) Pulse Ox O2 Delivery O2 Flow Rate FiO2 07/24/24 22:44 118 22 102/67 94 Nasal Cannula* 2 28 07/24/24 21:29 109 20 07/24/24 20:45 98.4 102 22 101/69 96 Room Air* 0 07/24/24 19:33 99.1 107 20 95/78 99 Nasal Cannula 2.0 DX & DISP Disposition: Inpatient Decision to Admit Time: 23:07 Departure Impression: Primary Impression: Acute on chronic diastolic CHF (congestive heart failure) Additional Impression: ACS (acute coronary syndrome) Condition: Stable Referrals: CALVIN ISLAS MD (PCP) JOCY HOPKINS MD Jul 24, 2024 20:06
--- NOTE | 2024-07-24 20:42 | HMCIMG ---
CHEST 1VW REASON: sob COMPARISON: 07/19/2024 FINDINGS: Heart is upper limits of normal in size. There is [id number] pulmonary vascular congestion. Peripheral portions of the lungs are clear. There is no pleural effusion. Pacemaker remains in place. IMPRESSION: 1. Mild to moderate pulmonary vascular congestion.
[2024-07-24] MEDS: dexaMETHasone SOD PHOSPHATE 4 MG/ML 1ML VIAL IM ONE (21:23)
[2024-07-24] MEDS: IpraTROPium/alBUTERol SULFATE 3 ML SOLUTION IH ONE (21:24)
[2024-07-24 21:29] VITALS: PULSE 109; RESP 20
[2024-07-24 21:48] LABS: CREATININE 1.2 mg/dL (0.5-1.0); POTASSIUM 3.9 mmol/L (3.5-5.1)
[2024-07-24 22:00] LABS: MAGNESIUM 1.5 mg/dL (1.80-2.40)
[2024-07-24 22:06] LABS: BASOPHILS # (AUTO) 0.05 K/uL (0.00-0.20); BASOPHILS % (AUTO) 0.7 % (0.0-5.0); EOSINOPHILS # (AUTO) 0.04 K/uL (0.00-0.70); EOSINOPHILS % (AUTO) 0.6 % (0.0-8.0); IMMATURE GRANULOCYTE ABSOLUTE 0.02 K/uL (0-1); LYMPHOCYTES # (AUTO) 1.7 K/uL (1.0-4.8); LYMPHOCYTES % (AUTO) 23.1 % (21.0-51.0); MEAN CORPUSCULAR HEMOGLOBIN 33.9 pg (27.0-33.0); MEAN CORPUSCULAR HGB CONC 34.8 g/dL (32.0-36.0); MEAN CORPUSCULAR VOLUME 97.3 fL (79-99); MONOCYTES # (AUTO) 0.9 K/uL (0.1-1.0); MONOCYTES % (AUTO) 12.7 % (3.0-13.0); NEUTROPHILS # (AUTO) 4.5 K/uL (1.8-7.7); NEUTROPHILS % (AUTO) 62.6 % (40.0-77.0); PLATELET COUNT (AUTO) 191 K/uL (130-400); RED BLOOD CELL COUNT(AUTO) 2.98 MIL/uL (4.00-5.50); RED CELL DISTRIBUTION WIDTH 15.6 % (11.0-15.5); WHITE BLOOD COUNT (AUTO) 7.2 K/uL (4.8-10.8)
[2024-07-24] MEDS: hydrOXYzine 25 MG TABLET PO ONE (22:11)
[2024-07-24] MEDS: NITROGLYCERIN 0.4 MG SL TAB SL STA (22:37)
[2024-07-24] MEDS: NITROGLYCERIN 0.4 MG SL TAB SL ONE (22:37)
[2024-07-24 22:44] LABS: B-TYPE NATRIURETIC PEPTIDE 2090 pg/mL (0-100)
[2024-07-24 23:19] LABS: INR 1.01 (0.85-1.15); PROTHROMBIN TIME 10.9 SEC (9.6-11.6)
[2024-07-24] MEDS ORDERED: PoTASSium chloRIDE 20MEQ/100ML 100 ML IV PRN (23:30)
[2024-07-24] MEDS ORDERED: ondanSETRON ODT 4MG TAB SL PRN (23:30)
[2024-07-24 23:37] LABS: PARTIAL THROMBOPLASTIN TIME 23.4 SEC (26.3-35.5)
[2024-07-25] VITALS (13 sets, daily range): BP systolic 104–116; BP diastolic 69–89; PULSE 92–114; RESP 18–21; TEMP 97.5–98.7; O2SAT 95–98
[2024-07-25] MEDS: furoSEMIDE 40MG VIAL IV ONE ×2 (00:04→12:18)
--- NOTE | 2024-07-25 00:15 | NUR ---
Pt arrived to 228 via stretcher. Transferred to bed. Educated pt in use of call light and to not get out of bed, verbalized understanding. Left bed locked, low, rails upx3, and with call light in reach.
--- NOTE | 2024-07-25 01:00 | NUR ---
Called Dr. Carrillo for pt claiming to have chest pain and requesting sleeping pill. Ordered to give 10mg of Ambien now po and if pt is still awake to give 2mg of Haldol IM once, repeated back order.
[2024-07-25] MEDS: ZOLPidem TARTrate 5 MG TAB PO ONE (01:24)
[2024-07-25] MEDS: acetaMINOPHEN 325 MG TAB PO PRN (01:50)
[2024-07-25] MEDS: HALOPERIDOL INJ 5 MG/ML VIAL IM ONE (02:50)
[2024-07-25 04:20] LABS: BASOPHILS # (AUTO) 0.01 K/uL (0.00-0.20); BASOPHILS % (AUTO) 0.2 % (0.0-5.0); HEMATOCRIT 28.1 % (36-48); IMMATURE GRANULOCYTE ABSOLUTE 0.01 K/uL (0-1); LYMPHOCYTES # (AUTO) 0.6 K/uL (1.0-4.8); LYMPHOCYTES % (AUTO) 13.9 % (21.0-51.0); MEAN CORPUSCULAR HEMOGLOBIN 34.6 pg (27.0-33.0); MEAN CORPUSCULAR HGB CONC 35.6 g/dL (32.0-36.0); MEAN CORPUSCULAR VOLUME 97.2 fL (79-99); MONOCYTES # (AUTO) 0.1 K/uL (0.1-1.0); MONOCYTES % (AUTO) 3.2 % (3.0-13.0); NEUTROPHILS # (AUTO) 3.3 K/uL (1.8-7.7); NEUTROPHILS % (AUTO) 82.5 % (40.0-77.0); PLATELET COUNT (AUTO) 179 K/uL (130-400); RED BLOOD CELL COUNT(AUTO) 2.89 MIL/uL (4.00-5.50); RED CELL DISTRIBUTION WIDTH 15.5 % (11.0-15.5)
[2024-07-25 04:34] LABS: HEMOGLOBIN A1C 6.1 % (4.0-6.0)
[2024-07-25 04:49] LABS: CREATININE 1.5 mg/dL (0.5-1.0); MAGNESIUM 1.5 mg/dL (1.80-2.40); POTASSIUM 3.9 mmol/L (3.5-5.1)
--- NOTE | 2024-07-25 05:19 | EKG ---
[facility] Test Date: 2024-07-25 Test Time: 01:16:41 Pat Name: MARTHA TALAMANTES Department: [facility] Room: 228 1 Gender: F Senior Financial Analyst: CONRAD GUO : 1945 Requested By: ANDRIY ESPINOZA Order Number: [id number] Reading MD: Amari Carmichael Measurements Intervals [place] Rate: 107 P: 49 AL: 174 QRS: -14 QRSD: 72 T: 211 QT: 370 QTc: 493 Interpretive Statements Sinus tachycardia with premature atrial complexes with aberrant conduction Low voltage QRS Anteroseptal infarct , age undetermined ST & T wave abnormality, consider lateral ischemia Compared to ECG 07/20/2024 12:43:30 Sinus rhythm no longer present Sinus arrhythmia no longer present Myocardial infarct finding still present ST (T wave) deviation still present Possible ischemia still present Electronically Signed On 07-25-2024 20:47:23 CONSULTING SME by Amari Carmichael Please click the below link to view image of tracing.
[2024-07-25] MEDS: MAGNESIUM 2GM PREMIX 50ML 50 ML IV PRN (05:29)
--- NOTE | 2024-07-25 05:42 | EKG ---
[facility] Test Date: 2024-07-24 Test Time: 19:58:28 Pat Name: MARTHA TALAMANTES Department: [facility] Room: 228 1 Gender: F Coil Tester: [id number] : 1945 Requested By: JOCY HOPKINS Order Number: [id number] Reading MD: Amari Carmichael Measurements Intervals [place] Rate: 107 P: 0 NM: 90 QRS: -33 QRSD: 80 T: 219 QT: 351 QTc: 467 Interpretive Statements Sinus tachycardia Left axis deviation Anterolateral infarct, age indeterminate Low limb lead voltage Compared to ECG 07/20/2024 12:43:30 Left-axis deviation now present Sinus tachycardia is now present ST (T wave) deviation no longer present Myocardial infarct finding still present Electronically Signed On 07-25-2024 20:43:49 INSPECTOR TUBES by Amari Carmichael Please click the below link to view image of tracing.
[2024-07-25] MEDS: ENOXAPARIN SODIUM 30 MG/0.3 ML SQ SCH (08:36)
[2024-07-25] MEDS: ASPIRIN 81MG CHEW TAB PO SCH (08:36)
[2024-07-25] MEDS: HALOPERIDOL 1 MG TABLET PO PRN (10:54)
[2024-07-25] MEDS: IpraTROPium/alBUTERol SULFATE 3 ML SOLUTION IH SCH (11:29)
[2024-07-25] MEDS: MAGNESIUM 4GM PREMIX 100ML 100 ML IV ONE (11:57)
[2024-07-25] MEDS ORDERED: ALPRAZolam 0.25 MG TABLET PO ONE (13:00)
[2024-07-25] MEDS: ALPRAZolam 0.5 MG TABLET PO ONE (13:50)
--- NOTE | 2024-07-25 14:59 | NUR ---
DCP: HOME Pt was discharged yesterday and returned 3 hours later c/o of breathing fast. states he is pt's primary caregiver and he assists her as needed. Pt has a walker with seat, but prefers to lean on for support when walking. No in home care services. states he promised pt he's Never send her to a SNF and he never will. Pt is going home at wi Addendum: 07/25/24 at 1502 by ZEHRA PEÑALOZA Amended: Links added.
--- NOTE | 2024-07-25 15:40 | NUR ---
DR. ESPINOZA AND HOUSE WERE MADE AWARE OF WINE WAS PRESENT IN ROOM. WHEN ASKED HE STATED IT WAS FOR HIM AND SHE WASN'T DRINKING ANYTHING. HOWEVER WHEN I DUMPED IT OUT AND GAVE HER FRESH WATER SHE MENTIONED IF IT WAS ONLY WATER IF SO SHE DIDN'T WANT ANYMORE. WAS ADVISED BY MEDICAL SALES SPECIALIST WILL BE AVAVIABLE SOON. WAS EDUCATED ON NO ALCOHOL ALLOWED ON HOSPITAL PREMISSES.
[2024-07-25] MEDS: guaiFENesin-DM 200/20MG 10ML PO PRN (16:00)
--- NOTE | 2024-07-25 17:04 | PN ---
INFECTIOUS DISEASE FOLLOWUP NOTE DATE OF SERVICE: 07/25/2024 SUBJECTIVE: The patient is seen and examined at bedside today. The patient has no fever, no chills. Complaining of shortness of breath. No chest pain, no palpitation. No rashes or itchiness. No diarrhea, no abdominal pain. PHYSICAL EXAMINATION:. VITAL SIGNS: Temperature 97.1. EYES: No icterus. Pupils equal and reactive. HENT: No oral thrush seen. Moist oral mucosa. NECK: Supple, no JVD or thyromegaly. LUNGS: Good air entry. No rales, no rhonchi. CARDIOVASCULAR: S1, S2 regular. No murmur heard. ABDOMEN: Full, soft. Bowel sound is present. CENTRAL NERVOUS SYSTEM: Awake, alert, ____ . SKIN: No rashes, no itchiness. LYMPHATIC: No peripheral lymphadenopathy. BACK: No deformity, no pressure ulcer. HEMATOLOGIC: No bleeding or petechial lesions seen. MUSCULOSKELETAL: No joint swelling, erythema or tenderness. ASSESSMENT: A 78-year-old female presenting with chest pain and shortness of breath. CURRENT PROBLEMS: Include: * Acute on chronic heart failure. * Possible angina. * Elevated troponin due to demand ischemia. * Encephalopathy. * Obesity. * Dementia. PLAN: * Continue Lasix. * Continue Lovenox. * Continue pain management. * Continue GI prophylaxis. * Continue antiemetics. * Continue nutritional support. * The patient will be followed up closely. TID: [id number] RECEIPT: [id number]
[2024-07-25] MEDS ORDERED: acetaMINOPHEN 500 MG TABLET PO SCH (18:00)
[2024-07-25] MEDS: LACTOBACILLUS RHAMNOSUS GG 1 EACH CAP.SPRINK PO SCH (18:23)
[2024-07-25] MEDS: IpraTROPium 0.5 MG/2.5 ML INH IH SCH (18:31)
--- NOTE | 2024-07-25 19:24 | CONS ---
[facility] CARDIOLOGY CONSULTATION REPORT Date Patient Seen: Jul 25, 2024 Time of Visit: 18:58 Requesting Physician: Dr. Jimmy Carrillo Reason for Consultation: Acute on chronic systolic and diastolic congestive heart failure History of Present Illness: This 78-year-old patient of Dr. Galo Reid with a history of an idiopathic dilated cardiomyopathy, recovery of LV function by most recent 2D echo 07/22/2024 with LVEF of 60-65%, stage II diastolic dysfunction, normal coronaries by prior cardiac catheterization in 2019, prior Biotronik dual- chamber AICD March 16, 2019 with both atrial and ventricular lead failure with therapy currently turned off, carvedilol intolerance due to sleep disturbance, and dementia who was hospitalized recently with nausea, vomiting, and acute kidney injury suspected due to hypotension was discharged from the hospital 07/24/2024 but returned today with worsening shortness of breath, orthopnea, and audible wheezing. She was found to be in acute on chronic diastolic congestive heart failure and Cardiology was consulted. Patient underwent a 2D echocardiogram 07/22/2024 demonstrating an LVEF of 60-65% and stage II diastolic dysfunction. There was aortic valve sclerosis without stenosis. Past Medical History: As outlined above and as summarized below Past Surgical History: Prior dual-chamber AICD with Biotronik device March 16, 2019 Appendectomy Family History: Noncontributory Social History: Noncontributory Habits: Marijuana use Glass of wine per week Home Meds: Midodrine 5 mg t.i.d. Furosemide 20 mg q.a.m. Multaq 400 mg p.o. b.i.d. Metoprolol succinate ER 50 mg p.o. daily Entresto one q.h.s. Zofran p.r.n. Probiotics Protonix 40 mg p.o. daily Review of Systems: CONST: No fever, fatigue, or weight changes. EYES: No recent vision problems. ENT: No congestion, ear pain, or sore throat. C/V: No chest pain, palpitations, or edema. RESP: Worsening shortness of breath and wheezing prompting admission. GI: No abdominal pain, nausea, vomiting, constipation, or diarrhea. : No incontinence or dysuria. SKIN: No rash. NEURO: No headache, focal numbness or weakness, dizziness, or seizures. PSYCH: No depression or anxiety. HEME: No abnormal bruising or bleeding. LYMPH: No swollen glands. Physical Examination: GENERAL: No acute distress. HEAD: Normal with no signs of head trauma. EYES: PERRLA, EOMI, conjunctiva and sclera normal. ENT: Hearing grossly intact, normal oropharynx. NECK: Supple without JVD. There is no tenderness, lymphadenopathy, or masses. No thyromegaly. Normal carotid upstrokes without bruits. LUNGS: Bilateral expiratory wheezes and basilar rales. No audible rhonchi. HEART: Normal rate and rhythm. Normal S1 and S2 without murmurs, gallop or rub. VASC: Peripheral pulses +2 bilaterally. ABD: Bowel sounds normal, soft, nontender, no masses, no organomegaly. No audible bruits. : Not examined LYMPH: No lymphadenopathy noted. EXT: No clubbing, cyanosis or edema. Scattered ecchymoses. SKIN: No rashes or lesions noted. NEURO: Awake, alert, and oriented x 2. Vital Signs (last 8hr) Date Time Temp Pulse Resp B/P (MAP) Pulse Ox O2 Delivery O2 Flow Rate FiO2 07/25/24 18:31 102 18 07/25/24 16:00 98.1 107 19 116/87 94 Nasal Cannula 07/25/24 11:33 101 18 N/Cannula Low lpm 2.0 28 07/25/24 11:29 99 20 07/25/24 11:00 97.5 110 19 116/89 96 Nasal Cannula 4.0 Laboratory: Hematology Labs: Test 07/25/24 04:14 Range/Units White Blood Count 4.0 #L 4.8-10.8 K/uL Red Blood Count 2.89 L 4.00-5.50 MIL/uL Hemoglobin 10.0 L 12.0-16.0 g/dL Hematocrit 28.1 L 36-48 % Mean Corpuscular Volume 97.2 79-99 fL Mean Corpuscular Hemoglobin 34.6 H 27.0-33.0 pg Mean Corpuscular Hemoglobin Concent 35.6 32.0-36.0 g/dL Red Cell Distribution Width 15.5 11.0-15.5 % Platelet Count 179 130-400 K/uL Mean Platelet Volume 9.9 7.5-10.5 fL Immature Granulocyte % (Auto) 0.2 0-1 % Neutrophils (%) (Auto) 82.5 H 40.0-77.0 % Lymphocytes (%) (Auto) 13.9 L 21.0-51.0 % Monocytes (%) (Auto) 3.2 3.0-13.0 % Eosinophils (%) (Auto) 0.0 0.0-8.0 % Basophils (%) (Auto) 0.2 0.0-5.0 % Neutrophils # (Auto) 3.3 1.8-7.7 K/uL Lymphocytes # (Auto) 0.6 L 1.0-4.8 K/uL Monocytes # (Auto) 0.1 0.1-1.0 K/uL Eosinophils # (Auto) 0.00 0.00-0.70 K/uL Basophils # (Auto) 0.01 0.00-0.20 K/uL Absolute Immature Granulocyte (auto 0.01 0-1 K/uL Nucleated Red Blood Cells 0.0 0.0-0.19 % Chemistry Labs: Test 07/25/24 08:28 07/25/24 07:23 07/25/24 04:14 07/24/24 21:58 Range/Units Whole Blood Glucose 189 H 70-110 MG/DL Troponin I High Sensitivity 340 *H 4-50 ng/L Sodium Level 136 136-145 mmol/L Potassium Level 3.9 3.5-5.1 mmol/L Chloride Level 104 101-111 mmol/L Carbon Dioxide Level 19 L 21-32 mmol/L Blood Urea Nitrogen 14 7-18 mg/dL Creatinine 1.5 H 0.5-1.0 mg/dL Glomerular Filtration Rate Calc 35 >90 mL/min Random Glucose 175 H 70-105 mg/dL Hemoglobin A1c 6.1 H 4.0-6.0 % Estimated Average Glucose (eAG) 128 H 70-126 mg/dL Total Calcium 8.6 8.5-10.1 mg/dL Magnesium Level 1.50 L 1.80-2.40 mg/dL B-Type Natriuretic Peptide 2090 H 0-100 pg/mL Test 07/24/24 21:30 Range/Units Lactic Acid Level 1.7 0.8-2.5 mmol/L Total Creatine Kinase 52 # 21-232 U/L Coagulation Labs: Test 07/24/24 23:00 Range/Units Prothrombin Time 10.9 9.6-11.6 SEC Prothromb Time International Ratio 1.01 0.85-1.15 Activated Partial Thromboplast Time 23.4 L 26.3-35.5 SEC Diagnostics / Radiology: Conclusion LVEF is 60-65%. Stage II diastolic dysfunction. The left atrium size is mildly dilated. Due to thickening of the aortic and mitral valves , cannot exclude a vegetation, however the thickening appears to be diffuse calcification of the valve cusps/leaflets. DICTATED BY: [place] DO DATE: 07/22/24 1027 Impression and Plan: Acute on chronic HFpEF: History of nonischemic cardiomyopathy with LVEF of 20%, recovered by 2D echo 07/22/2024 with LVEF of 60-65%: Recent hospitalization with nausea, vomiting, and acute kidney injury, discharged 07/24/2024, likely volume resuscitation is cause of decompensation: LVEF of 60-65%, and stage II diastolic dysfunction by 2D echo 07/22/2024: -resume patient on furosemide 20 IV q.12 and then transition to her previous home dose of 20 mg p.o. daily -resume Entresto 24/26 mg 0.5 tablet b.i.d., hold for systolic blood pressure less than 105 -resume metoprolol succinate ER 50 mg daily -follow for complete clearing of chest x-ray prior to discharge home given readmission Normal coronary arteries by cardiac catheterization in 2019: History of prior Biotronik AICD insertion March 16, 2019 with dual-chamber device, with both atrial and ventricular lead failure currently with all therapies turned off: History of inappropriate discharges of defibrillator due to LV lead dysfunction with all therapies programmed off: -According to [facility] notes the patient previously was at a DNR status and this will need to be clarified. The patient's reports that she is not at DNR: -Case management to clarify History of paroxysmal atrial fibrillation on Multaq and metoprolol therapy: -continue present low-dose metoprolol succinate ER 50 mg daily and resume Multaq 400 b.i.d. Hypotension discharged recently on midodrine: -attempt to withdraw midodrine therapy and follow blood pressure on very low- dose Entresto and metoprolol Dementia ESEQUIEL LOCKETT MD Jul 25, 2024 19:24
[2024-07-25] MEDS: furoSEMIDE 40MG VIAL IV SCH (20:12)
[2024-07-25] MEDS: DRONEDARONE HYDROCHLORIDE 400 MG TABLET PO SCH (20:13)
[2024-07-25] MEDS: ZOLPidem TARTrate 5 MG TAB PO SCH (20:13)
[2024-07-25] MEDS: SACUBITRIL/VALSARTAN 1 EACH TABLET PO SCH (20:14)
[2024-07-25] MEDS ORDERED: miDODRine HCL 5 MG TABLET PO SCH (21:00)
[2024-07-25] MEDS ORDERED: ZOLPidem TARTrate 5 MG TAB PO SCH (21:00)
--- NOTE | 2024-07-25 22:47 | HP ---
DATE OF SERVICE: 07/24/2024 HISTORY AND PHYSICAL PRESENTING COMPLAINT: Shortness of breath and chest pain. HISTORY OF PRESENT ILLNESS: This is a 78-year-old female with history of dementia, hypertension, alcohol abuse, and nonischemic cardiomyopathy, who presented to hospital with chest pain. The patient is a very poor historian. However, in the Emergency Room, the patient was found with elevated troponin. BNP also was elevated. Chest x-ray shows [id number] pulmonary congestion. The patient was discharged from this facility earlier today after being managed as a case of dehydration and noninfectious gastroenteritis. PAST MEDICAL HISTORY: * Dementia. * Hypertension. * Idiopathic dilated cardiomyopathy with an EF of 20%. * Atrial fibrillation. * Medical noncompliance. * Fatty liver. * Chronic alcohol use. PAST SURGICAL HISTORY: * AICD placement. * Appendectomy. * Cardiac catheterization. ALLERGIES: No known drug allergy. HOME MEDICATIONS: To be reviewed when made available by family. FAMILY HISTORY: Noncontributory. REVIEW OF SYSTEMS: Available history obtained from ER note. The patient has dementia, not a good historian. PHYSICAL EXAMINATION: VITAL SIGNS: Temperature 98.4, pulse 103, respiratory rate 20, and BP 101/69. EYES: No icterus. Pupils equal and reactive. HENT: No oral thrush seen. Moist oral mucosa. NECK: Supple, no JVD or thyromegaly. LUNGS: Good air entry. Few crackles. CARDIOVASCULAR: S1, S2 regular. No murmur heard. ABDOMEN: Full, soft. Bowel sounds are present. CENTRAL NERVOUS SYSTEM: The patient is awake, confused. No focal deficits. SKIN: No rashes, no itchiness. LYMPHATIC: No peripheral lymphadenopathy. BACK: No deformity, no pressure ulcer. HEMATOLOGIC: No bleeding or petechial lesions seen. VASCULAR: No ischemia or gangrene of extremities. LABORATORY DATA: WBC 7.2, hemoglobin 10.1, and platelet 181. Sodium 136, potassium 3.9, BUN 13, creatinine 1.2, and magnesium 1.5. Troponin 279. BNP 2090. RADIOLOGY: Chest x-ray showed [id number] pulmonary congestion. ASSESSMENT: A 78-year-old female presenting with chest pain and shortness of breath. CURRENT PROBLEMS: Include: * Possible angina pectoris. * Bgmlt-[id number] congestive heart failure. * Elevated troponin due to demand ischemia. * Dementia. * Chronic alcohol use. * History of ischemic cardiomyopathy. PLAN: * Admit the patient to medical floor with telemetry. * Start the patient on aspirin. * The patient will be placed on Lovenox. * Troponin will be trended. * Tylenol as needed for pain or fever. * Cardiology evaluation. * Monitor electrolytes and correct as needed. * Cardiac diet. TID: [id number] RECEIPT: [id number]
[2024-07-26] VITALS (14 sets, daily range): BP systolic 92–110; BP diastolic 56–63; PULSE 76–121; RESP 17–22; TEMP 97.4–98.6; O2SAT 92–96
[2024-07-26] MEDS: HALOPERIDOL INJ 5 MG/ML VIAL IM ONE (01:40)
[2024-07-26 05:27] LABS: CREATININE 1.5 mg/dL (0.5-1.0); POTASSIUM 3.7 mmol/L (3.5-5.1)
[2024-07-26] MEDS: PoTASSium chl 10% ELIXIR 20MEQ 20 MEQ/15 ML UDCUP PO PRN (06:07)
[2024-07-26] MEDS ORDERED: furoSEMIDE 40MG VIAL IV SCH (09:00)
--- NOTE | 2024-07-26 10:37 | NUR ---
Jorge at bedside, refuses for sitter to be inside the room while he is with his . educated on fluid restriction, and educated not to give patent alcohol, or any other beverages, or anything brought from outside the hospital without asking primary RN. verbalized understanding.
--- NOTE | 2024-07-26 10:54 | NUR ---
specialty food products supervisor at bedside speaking with and educated that sitter is to be with the patient because patient is high risk for fall and forgetful and attempts to get out of bedside without calling for assistance, or to keep the door open so the sitter have a a direct view. Despite education, refused for the sitter to be present, he turned off bed alarm and closed the door.
[2024-07-26] MEDS: metOPROLol sucCINATE 50 MG TAB.SR.24H PO SCH (11:15)
--- NOTE | 2024-07-26 11:41 | PN ---
[facility] CARDIOLOGY PROGRESS NOTE Cardiology progress note dictated for Yina Gregory MD Primary assistant production manager: Galo Reid MD Date Patient Seen: Jul 26, 2024 Interval History: The patient was recently hospitalized with nausea, vomiting, and acute kidney injury suspected due to hypotension and was discharged on 07/24/2024 but returned today with worsening shortness of breath, orthopnea, and audible wheezing. She was found to be in acute on chronic diastolic congestive heart failure. The patient is lying in bed, in no acute distress. She denies chest pain, palpitations, shortness of breath or orthopnea. Telemetry demonstrating NSR with hr in the 90-100's. Physical Examination: GENERAL: No acute distress. HEAD: Normal with no signs of head trauma. EYES: PERRLA, EOMI, conjunctiva and sclera normal. NECK: Supple without JVD. There is no tenderness, lymphadenopathy, or masses. No thyromegaly. Normal carotid upstrokes without bruits. LUNGS: Minimal rales bilaterally. HEART: Normal rate and rhythm. Normal S1 and S2 without murmurs, gallop or rub. VASC: Peripheral pulses +2 bilaterally. EXT: No clubbing, cyanosis or edema. NEURO: Awake and alert. Poor memory. Laboratory: Hematology Labs: Test 07/25/24 04:14 Range/Units White Blood Count 4.0 #L 4.8-10.8 K/uL Red Blood Count 2.89 L 4.00-5.50 MIL/uL Hemoglobin 10.0 L 12.0-16.0 g/dL Hematocrit 28.1 L 36-48 % Mean Corpuscular Volume 97.2 79-99 fL Mean Corpuscular Hemoglobin 34.6 H 27.0-33.0 pg Mean Corpuscular Hemoglobin Concent 35.6 32.0-36.0 g/dL Red Cell Distribution Width 15.5 11.0-15.5 % Platelet Count 179 130-400 K/uL Mean Platelet Volume 9.9 7.5-10.5 fL Immature Granulocyte % (Auto) 0.2 0-1 % Neutrophils (%) (Auto) 82.5 H 40.0-77.0 % Lymphocytes (%) (Auto) 13.9 L 21.0-51.0 % Monocytes (%) (Auto) 3.2 3.0-13.0 % Eosinophils (%) (Auto) 0.0 0.0-8.0 % Basophils (%) (Auto) 0.2 0.0-5.0 % Neutrophils # (Auto) 3.3 1.8-7.7 K/uL Lymphocytes # (Auto) 0.6 L 1.0-4.8 K/uL Monocytes # (Auto) 0.1 0.1-1.0 K/uL Eosinophils # (Auto) 0.00 0.00-0.70 K/uL Basophils # (Auto) 0.01 0.00-0.20 K/uL Absolute Immature Granulocyte (auto 0.01 0-1 K/uL Nucleated Red Blood Cells 0.0 0.0-0.19 % Chemistry Labs: Test 07/26/24 04:57 07/25/24 08:28 07/25/24 07:23 07/25/24 04:14 Range/Units Sodium Level 138 136-145 mmol/L Potassium Level 3.7 3.5-5.1 mmol/L Chloride Level 104 101-111 mmol/L Carbon Dioxide Level 21 21-32 mmol/L Blood Urea Nitrogen 17 7-18 mg/dL Creatinine 1.5 H 0.5-1.0 mg/dL Glomerular Filtration Rate Calc 35 >90 mL/min Random Glucose 132 H 70-105 mg/dL Total Calcium 8.4 L 8.5-10.1 mg/dL Magnesium Level 3.00 H 1.80-2.40 mg/dL Whole Blood Glucose 189 H 70-110 MG/DL Troponin I High Sensitivity 340 *H 4-50 ng/L Hemoglobin A1c 6.1 H 4.0-6.0 % Estimated Average Glucose (eAG) 128 H 70-126 mg/dL Test 07/24/24 21:58 07/24/24 21:30 Range/Units B-Type Natriuretic Peptide 2090 H 0-100 pg/mL Lactic Acid Level 1.7 0.8-2.5 mmol/L Total Creatine Kinase 52 # 21-232 U/L Coagulation Labs: Test 07/24/24 23:00 Range/Units Prothrombin Time 10.9 9.6-11.6 SEC Prothromb Time International Ratio 1.01 0.85-1.15 Activated Partial Thromboplast Time 23.4 L 26.3-35.5 SEC Diagnostics / Radiology: 2D Echo on 07/22/2024 Conclusion LVEF is 60-65%. Stage II diastolic dysfunction. The left atrium size is mildly dilated. Due to thickening of the aortic and mitral valves , cannot exclude a vegetation, however the thickening appears to be diffuse calcification of the valve cusps/leaflets. Impression and Plan: Acute on chronic HFpEF: History of nonischemic cardiomyopathy with LVEF of 20%, recovered by 2D echo on 07/22/2024 with LVEF of 60-65% and stage II diastolic dysfunction: Recent hospitalization with nausea, vomiting, and acute kidney injury, di scharged 07/24/2024, likely volume resuscitation is cause of decompensation: -resume patient on furosemide 20 IV q.12 and then transition to her previous home dose of 20 mg p.o. daily -Hold Entresto due to hypotension, sbp in the 90's -Continue Metoprolol succinate ER 50 mg daily -Follow for complete clearing of chest x-ray prior to discharge home given readmission History of prior Biotronik AICD insertion March 16, 2019 with dual-chamber device, with both atrial and ventricular lead failure currently with all therapies turned off: History of inappropriate discharges of defibrillator due to LV lead dysfunction with all therapies programmed off: -According to [facility] notes the patient previously was at a DNR status and this will need to be clarified. The patient's reports that she is not at DNR: -Case management to clarify History of paroxysmal atrial fibrillation on Multaq and metoprolol therapy: -Continue Metoprolol succinate ER 50 mg daily and Multaq 400 b.i.d. Hypotension discharged recently on midodrine: -Discontinue Midodrine therapy and trend blood pressure Normal coronary arteries by cardiac catheterization in 2019 REBEKA Braun FOOT SPECIALIST Jul 26, 2024 11:41
--- NOTE | 2024-07-26 14:03 | PN ---
INFECTIOUS DISEASE PROGRESS NOTE Date of Service: Jul 26, 2024 SUBJECTIVE: This is a 78-year-old female patient who was admitted to the hospital with chief complaint of shortness of breath and chest pain. Patient was seen and examined at bedside in room 228. Patient is currently on a one-to-one sitter observation. No dyspnea observe, patient however remains on oxygen via nasal cannula at 3 liters/minute and O2 is between 92-96%. Continues on diuretics and will obtain a BNP level in a.m. Patient remained afebrile, temperature is 97.5. BUN is 17 and creatinine is 1.5. Will continue to follow patient's care. PHYSICAL EXAM EYES: Anicteric. Pupils equal and reactive. HENT: No oral thrush seen, moist Oral mucosa. NECK: Supple, no JVD or thyromegaly. LUNGS: Good air entry. No rales, no rhonchi. Oxygen via nasal cannula CARDIOVASCULAR: S1, S2 regular. No murmur heard. ABDOMEN: Soft, non tender, bowel sounds present, no organomegaly. CENTRAL NERVOUS SYSTEM: Awake, alert, oriented x to person. SKIN: No rashes, no swelling. LYMPHATICS: No peripheral lymphadenopathy. MUSCULOSKELETAL: No joint swelling, erythema or tenderness. EXTREMITIES: No cyanosis or clubbing. BACK: No deformity, no pressure ulcer. GENITOURINARY: No dysuria or hematuria. Vital Sign (Last 12 Hours) 07/26/24 07/26/24 07/26/24 07/26/24 04:07 06:44 06:45 08:03 Temp 98.1 97.5 Pulse 88 105 108 Resp 18 18 18 20 B/P (MAP) 98/56 96/63 Pulse Ox 92 92 O2 Delivery Nasal Cannula N/Cannula Low lpm Nasal Cannula O2 Flow Rate 3.0 3.0 FiO2 32 07/26/24 07/26/24 09:17 11:14 Temp 97.3 Pulse 94 Resp 17 B/P (MAP) 98/61 98/63 Pulse Ox 96 O2 Delivery Nasal Cannula O2 Flow Rate 3.0 Intake & Output (last 24hrs) 07/25/24 07/25/24 07/26/24 15:00 23:00 07:00 Intake Total 240 ml Output Total 500 ml Balance -260 ml LABS: Laboratory: Test 07/26/24 04:57 07/25/24 08:28 07/25/24 07:23 07/25/24 04:14 Range/Units Sodium Level 138 136-145 mmol/L Potassium Level 3.7 3.5-5.1 mmol/L Chloride Level 104 101-111 mmol/L Carbon Dioxide Level 21 21-32 mmol/L Blood Urea Nitrogen 17 7-18 mg/dL Creatinine 1.5 H 0.5-1.0 mg/dL Glomerular Filtration Rate Calc 35 >90 mL/min Random Glucose 132 H 70-105 mg/dL Total Calcium 8.4 L 8.5-10.1 mg/dL Magnesium Level 3.00 H 1.80-2.40 mg/dL Whole Blood Glucose 189 H 70-110 MG/DL Troponin I High Sensitivity 340 *H 4-50 ng/L White Blood Count 4.0 #L 4.8-10.8 K/uL Red Blood Count 2.89 L 4.00-5.50 MIL/uL Hemoglobin 10.0 L 12.0-16.0 g/dL Hematocrit 28.1 L 36-48 % Mean Corpuscular Volume 97.2 79-99 fL Mean Corpuscular Hemoglobin 34.6 H 27.0-33.0 pg Mean Corpuscular Hemoglobin Concent 35.6 32.0-36.0 g/dL Red Cell Distribution Width 15.5 11.0-15.5 % Platelet Count 179 130-400 K/uL Mean Platelet Volume 9.9 7.5-10.5 fL Immature Granulocyte % (Auto) 0.2 0-1 % Neutrophils (%) (Auto) 82.5 H 40.0-77.0 % Lymphocytes (%) (Auto) 13.9 L 21.0-51.0 % Monocytes (%) (Auto) 3.2 3.0-13.0 % Eosinophils (%) (Auto) 0.0 0.0-8.0 % Basophils (%) (Auto) 0.2 0.0-5.0 % Neutrophils # (Auto) 3.3 1.8-7.7 K/uL Lymphocytes # (Auto) 0.6 L 1.0-4.8 K/uL Monocytes # (Auto) 0.1 0.1-1.0 K/uL Eosinophils # (Auto) 0.00 0.00-0.70 K/uL Basophils # (Auto) 0.01 0.00-0.20 K/uL Absolute Immature Granulocyte (auto 0.01 0-1 K/uL Nucleated Red Blood Cells 0.0 0.0-0.19 % Hemoglobin A1c 6.1 H 4.0-6.0 % Estimated Average Glucose (eAG) 128 H 70-126 mg/dL Test 07/24/24 23:00 07/24/24 21:58 07/24/24 21:30 Range/Units Prothrombin Time 10.9 9.6-11.6 SEC Prothromb Time International Ratio 1.01 0.85-1.15 Activated Partial Thromboplast Time 23.4 L 26.3-35.5 SEC B-Type Natriuretic Peptide 2090 H 0-100 pg/mL Lactic Acid Level 1.7 0.8-2.5 mmol/L Total Creatine Kinase 52 # 21-232 U/L ASSESSMENT: Possible angina pectoris. Acute on chronic congestive heart failure. Elevated troponin. Acute renal failure. Encephalopathy. Dementia. Chronic alcohol use. PLAN: Continues on a one-to-one sitter observation. Continue diuretics. Continue DVT prophylaxis. Patient has been evaluated by Cardiology. We will follow up on the cultures. Monitor electrolytes. This case was reviewed and discussed with my supervising physician and the above assessment and plan was formulated and agreed upon. ATTESTATION BY PHYSICIAN I have seen and examined the patient. I reviewed the documentation, medical decision making, and treatment plan as noted by the mid-level provider above. I agree with the findings and plan of care. ANDRIY ESPINOZA MD, [facility] Jul 26, 2024 14:03
[2024-07-26] MEDS: furoSEMIDE 20MG VIAL IV SCH (21:00)
[2024-07-27] VITALS (18 sets, daily range): BP systolic 85–100; BP diastolic 44–67; PULSE 67–88; RESP 18–22; TEMP 97.8–98.8; O2SAT 95–97
[2024-07-27 04:21] LABS: BASOPHILS # (AUTO) 0.02 K/uL (0.00-0.20); BASOPHILS % (AUTO) 0.4 % (0.0-5.0); EOSINOPHILS # (AUTO) 0.18 K/uL (0.00-0.70); EOSINOPHILS % (AUTO) 3.5 % (0.0-8.0); HEMATOCRIT 23.5 % (36-48); IMMATURE GRANULOCYTE ABSOLUTE 0.02 K/uL (0-1); LYMPHOCYTES # (AUTO) 1.5 K/uL (1.0-4.8); LYMPHOCYTES % (AUTO) 29.6 % (21.0-51.0); MEAN CORPUSCULAR HGB CONC 35.7 g/dL (32.0-36.0); MEAN CORPUSCULAR VOLUME 95.1 fL (79-99); MONOCYTES # (AUTO) 0.8 K/uL (0.1-1.0); MONOCYTES % (AUTO) 15.8 % (3.0-13.0); NEUTROPHILS # (AUTO) 2.6 K/uL (1.8-7.7); NEUTROPHILS % (AUTO) 50.3 % (40.0-77.0); PLATELET COUNT (AUTO) 210 K/uL (130-400); RED BLOOD CELL COUNT(AUTO) 2.47 MIL/uL (4.00-5.50); RED CELL DISTRIBUTION WIDTH 15.3 % (11.0-15.5); WHITE BLOOD COUNT (AUTO) 5.1 K/uL (4.8-10.8)
[2024-07-27 04:45] LABS: CREATININE 1.4 mg/dL (0.5-1.0); POTASSIUM 4.2 mmol/L (3.5-5.1)
[2024-07-27 05:12] LABS: B-TYPE NATRIURETIC PEPTIDE 1880 pg/mL (0-100)
--- NOTE | 2024-07-27 09:56 | PN ---
[facility] CARDIOLOGY PROGRESS NOTE Cardiology progress note dictated for Yina Gregory MD Primary united states attorney: Galo Reid MD Date Patient Seen: Jul 27, 2024 Interval History: The patient was recently hospitalized with nausea, vomiting, and acute kidney injury suspected due to hypotension and was discharged on 07/24/2024 but returned the same day with worsening shortness of breath, orthopnea, and audible wheezing. She was found to be in acute on chronic diastolic congestive heart failure. The patient is lying in bed, in no acute distress. She denies chest pain, palpitations, shortness of breath or orthopnea. Telemetry demonstrating NSR with hr in the 70-80's. The patient's states his wants to leave AMA, I was able to inform him she will need another day of IV Lasix and we will obtain a chest x-ray tomorrow morning to assess lung clearing. Physical Examination: GENERAL: No acute distress. HEAD: Normal with no signs of head trauma. EYES: PERRLA, EOMI, conjunctiva and sclera normal. NECK: Supple without JVD. There is no tenderness, lymphadenopathy, or masses. No thyromegaly. Normal carotid upstrokes without bruits. LUNGS: Minimal rales bilaterally greater on the right side. HEART: Normal rate and rhythm. Normal S1 and S2 without murmurs, gallop or rub. VASC: Peripheral pulses +2 bilaterally. EXT: No clubbing, cyanosis or edema. NEURO: Awake and alert. Poor memory. Laboratory: Hematology Labs: Test 07/27/24 03:31 Range/Units White Blood Count 5.1 4.8-10.8 K/uL Red Blood Count 2.47 L 4.00-5.50 MIL/uL Hemoglobin 8.4 L 12.0-16.0 g/dL Hematocrit 23.5 L 36-48 % Mean Corpuscular Volume 95.1 79-99 fL Mean Corpuscular Hemoglobin 34.0 H 27.0-33.0 pg Mean Corpuscular Hemoglobin Concent 35.7 32.0-36.0 g/dL Red Cell Distribution Width 15.3 11.0-15.5 % Platelet Count 210 130-400 K/uL Mean Platelet Volume 10.0 7.5-10.5 fL Immature Granulocyte % (Auto) 0.4 0-1 % Neutrophils (%) (Auto) 50.3 40.0-77.0 % Lymphocytes (%) (Auto) 29.6 21.0-51.0 % Monocytes (%) (Auto) 15.8 H 3.0-13.0 % Eosinophils (%) (Auto) 3.5 0.0-8.0 % Basophils (%) (Auto) 0.4 0.0-5.0 % Neutrophils # (Auto) 2.6 1.8-7.7 K/uL Lymphocytes # (Auto) 1.5 1.0-4.8 K/uL Monocytes # (Auto) 0.8 0.1-1.0 K/uL Eosinophils # (Auto) 0.18 0.00-0.70 K/uL Basophils # (Auto) 0.02 0.00-0.20 K/uL Absolute Immature Granulocyte (auto 0.02 0-1 K/uL Nucleated Red Blood Cells 0.0 0.0-0.19 % Chemistry Labs: Test 07/27/24 03:31 07/26/24 04:57 Range/Units Sodium Level 139 136-145 mmol/L Potassium Level 4.2 3.5-5.1 mmol/L Chloride Level 108 101-111 mmol/L Carbon Dioxide Level 23 21-32 mmol/L Blood Urea Nitrogen 20 H 7-18 mg/dL Creatinine 1.4 H 0.5-1.0 mg/dL Glomerular Filtration Rate Calc 38 >90 mL/min Random Glucose 89 70-105 mg/dL Total Calcium 8.2 L 8.5-10.1 mg/dL B-Type Natriuretic Peptide 1880 H 0-100 pg/mL Magnesium Level 3.00 H 1.80-2.40 mg/dL Diagnostics / Radiology: 2D Echo on 07/22/2024 Conclusion LVEF is 60-65%. Stage II diastolic dysfunction. The left atrium size is mildly dilated. Due to thickening of the aortic and mitral valves , cannot exclude a vegetation, however the thickening appears to be diffuse calcification of the valve cusps/leaflets. Impression and Plan: Acute on chronic HFpEF: History of nonischemic cardiomyopathy with LVEF of 20%, recovered by 2D echo on 07/22/2024 with LVEF of 60-65% and stage II diastolic dysfunction: Recent hospitalization with nausea, vomiting, and acute kidney injury, discharged 07/24/2024, likely volume resuscitation is cause of decompensation: -BNP today of 1880, continue furosemide 20 IV q12 and then transition to her p revious home dose of 20 mg p.o. daily -Hold Entresto due to hypotension, sbp in the 90's -Decrease Metoprolol succinate to 25mg q hs -Chest x-ray in AM to asses lung clearing History of prior Biotronik AICD insertion March 16, 2019 with dual-chamber devic e, with both atrial and ventricular lead failure currently with all therapies turned off: History of inappropriate discharges of defibrillator due to LV lead dysfunction with all therapies programmed off: -According to [facility] notes the patient previously was at a DNR status and this will need to be clarified. The patient's reports that she is not at DNR: -Case management to clarify History of paroxysmal atrial fibrillation on Multaq and metoprolol therapy: -Continue Multaq 400 b.i.d., decrease Metoprolol succinate to 25mg q hs Hypotension discharged recently on midodrine: -Hold Midodrine therapy, continue to trend blood pressure Normal coronary arteries by cardiac catheterization in 2019 Dementia REBEKA MCCRACKEN [facility] Jul 27, 2024 09:56
--- NOTE | 2024-07-27 15:48 | PN ---
INFECTIOUS DISEASE PROGRESS NOTE Date of Service: Jul 27, 2024 SUBJECTIVE: This is a 78-year-old female patient who was admitted to the hospital with chief complaint of shortness of breath and chest pain. Patient was seen and examined at bedside in room 228. Patient continues on a one-to-one sitter observation. Patient is awake, alert and oriented to person. Was able to answer basic questions. BNP is 1880 this morning. Continues on oxygen via nasal cannula at 3 liters/minute. No reports of fever, temperature is 97.9. Renal function continues to improve, BUN is 20 and creatinine 1.4 this morning. Will continue to follow patient's care. PHYSICAL EXAM EYES: Anicteric. Pupils equal and reactive. HENT: No oral thrush seen, moist Oral mucosa. NECK: Supple, no JVD or thyromegaly. LUNGS: Good air entry. No rales, no rhonchi. Oxygen via nasal cannula CARDIOVASCULAR: S1, S2 regular. No murmur heard. ABDOMEN: Soft, non tender, bowel sounds present, no organomegaly. CENTRAL NERVOUS SYSTEM: Awake, alert, oriented x to person. SKIN: No rashes, no swelling. LYMPHATICS: No peripheral lymphadenopathy. MUSCULOSKELETAL: No joint swelling, erythema or tenderness. EXTREMITIES: No cyanosis or clubbing. BACK: No deformity, no pressure ulcer. GENITOURINARY: No dysuria or hematuria. Vital Sign (Last 12 Hours) 07/27/24 07/27/24 07/27/24 07/27/24 04:00 07:11 07:14 08:24 Temp 98.2 97.9 Pulse 88 78 78 80 Resp 22 20 20 22 B/P (MAP) 90/49 97/67 Pulse Ox 88 97 O2 Delivery Nasal Cannula N/Cannula Low lpm Nasal Cannula O2 Flow Rate 3.0 3.0 3.0 07/27/24 07/27/24 07/27/24 07/27/24 09:18 09:51 11:24 12:12 Temp 98.2 Pulse 76 67 Resp 20 20 B/P (MAP) 100/64 Pulse Ox 97 93 99 O2 Delivery Nasal Cannula* Nasal Cannula Nasal Cannula O2 Flow Rate 3 2.0 2.0 FiO2 32 Intake & Output (last 24hrs) 07/26/24 07/26/24 07/27/24 15:00 23:00 07:00 Intake Total 859.0 ml 18.0 ml Balance 859.0 ml 18.0 ml LABS: Laboratory: Test 07/27/24 03:31 07/26/24 04:57 Range/Units White Blood Count 5.1 4.8-10.8 K/uL Red Blood Count 2.47 L 4.00-5.50 MIL/uL Hemoglobin 8.4 L 12.0-16.0 g/dL Hematocrit 23.5 L 36-48 % Mean Corpuscular Volume 95.1 79-99 fL Mean Corpuscular Hemoglobin 34.0 H 27.0-33.0 pg Mean Corpuscular Hemoglobin Concent 35.7 32.0-36.0 g/dL Red Cell Distribution Width 15.3 11.0-15.5 % Platelet Count 210 130-400 K/uL Mean Platelet Volume 10.0 7.5-10.5 fL Immature Granulocyte % (Auto) 0.4 0-1 % Neutrophils (%) (Auto) 50.3 40.0-77.0 % Lymphocytes (%) (Auto) 29.6 21.0-51.0 % Monocytes (%) (Auto) 15.8 H 3.0-13.0 % Eosinophils (%) (Auto) 3.5 0.0-8.0 % Basophils (%) (Auto) 0.4 0.0-5.0 % Neutrophils # (Auto) 2.6 1.8-7.7 K/uL Lymphocytes # (Auto) 1.5 1.0-4.8 K/uL Monocytes # (Auto) 0.8 0.1-1.0 K/uL Eosinophils # (Auto) 0.18 0.00-0.70 K/uL Basophils # (Auto) 0.02 0.00-0.20 K/uL Absolute Immature Granulocyte (auto 0.02 0-1 K/uL Nucleated Red Blood Cells 0.0 0.0-0.19 % Sodium Level 139 136-145 mmol/L Potassium Level 4.2 3.5-5.1 mmol/L Chloride Level 108 101-111 mmol/L Carbon Dioxide Level 23 21-32 mmol/L Blood Urea Nitrogen 20 H 7-18 mg/dL Creatinine 1.4 H 0.5-1.0 mg/dL Glomerular Filtration Rate Calc 38 >90 mL/min Random Glucose 89 70-105 mg/dL Total Calcium 8.2 L 8.5-10.1 mg/dL B-Type Natriuretic Peptide 1880 H 0-100 pg/mL Magnesium Level 3.00 H 1.80-2.40 mg/dL ASSESSMENT: Possible angina pectoris. Acute on chronic congestive heart failure. Elevated troponin. Acute renal failure. Encephalopathy. Dementia. Chronic alcohol use. PLAN: Continues on a one-to-one sitter observation. Continue diuretics. Continue DVT prophylaxis. Patient has been evaluated by Cardiology. We will follow up on the cultures. Monitor electrolytes. Pending social work faculty member evaluation to clarify code status. This case was reviewed and discussed with my supervising physician and the above assessment and plan was formulated and agreed upon. ATTESTATION BY PHYSICIAN I have seen and examined the patient. I reviewed the documentation, medical decision making, and treatment plan as noted by the mid-level provider above. I agree with the findings and plan of care. ANDRIY ESPINOZA MD, MIRTA L [facility] Jul 27, 2024 15:48
[2024-07-27] MEDS: metOPROLol sucCINATE 25 MG TAB.SR.24H PO SCH (20:15)
--- NOTE | 2024-07-27 23:01 | NUR ---
SOFT B/Ps unable to give tropolol XR held medication
[2024-07-28] VITALS (13 sets, daily range): BP systolic 100–111; BP diastolic 50–77; PULSE 76–109; RESP 18–20; TEMP 97.6–98.6; O2SAT 86–97
--- NOTE | 2024-07-28 07:17 | HMCIMG ---
CHEST 1VW HISTORY: CHF COMPARISON: 07/24/2024 FINDINGS: A frontal projection of the chest was obtained. There are bilateral pulmonary infiltrates suggestive of pulmonary vascular congestion with possible superimposed pneumonitis. The heart is enlarged. Degenerative changes are seen. Pacemaker is seen entering from the left. No evidence of aortic calcification is seen. IMPRESSION: 1. Bilateral pulmonary infiltrates are seen suggestive of pulmonary vascular congestion with possible superimposed pneumonitis.
--- NOTE | 2024-07-28 10:06 | PN ---
[facility] CARDIOLOGY PROGRESS NOTE Cardiology progress note dictated for Yina Gregory MD Primary waiter/waitress cocktail lounge: Galo Reid MD Date Patient Seen: Jul 28, 2024 Interval History: The patient was recently hospitalized with nausea, vomiting, and acute kidney injury suspected due to hypotension and was discharged on 07/24/2024 but returned the same day with worsening shortness of breath, orthopnea, and audible wheezing. She was found to be in acute on chronic diastolic congestive heart failure. The patient is lying in bed, in no acute distress. She denies chest pain, palpitations, shortness of breath or orthopnea. Telemetry demonstrating NSR. Chest x-ray today demonstrated bilateral pulmonary infiltrates suggestive of pulmonary vascular congestion with possible superimposed pneumonitis, slightly worse than previous chest x-ray. Right lung sounds have worsened since yesterday, with increased rales. Physical Examination: GENERAL: No acute distress. HEAD: Normal with no signs of head trauma. EYES: PERRLA, EOMI, conjunctiva and sclera normal. NECK: Supple without JVD. There is no tenderness, lymphadenopathy, or masses. No thyromegaly. Normal carotid upstrokes without bruits. LUNGS: Moderate rales to the right lung, minimal rales to the left lung. HEART: Normal rate and rhythm. Normal S1 and S2 without murmurs, gallop or rub. VASC: Peripheral pulses +2 bilaterally. EXT: No clubbing, cyanosis or edema. NEURO: Awake and alert. Poor memory. Laboratory: Hematology Labs: Test 07/27/24 03:31 Range/Units White Blood Count 5.1 4.8-10.8 K/uL Red Blood Count 2.47 L 4.00-5.50 MIL/uL Hemoglobin 8.4 L 12.0-16.0 g/dL Hematocrit 23.5 L 36-48 % Mean Corpuscular Volume 95.1 79-99 fL Mean Corpuscular Hemoglobin 34.0 H 27.0-33.0 pg Mean Corpuscular Hemoglobin Concent 35.7 32.0-36.0 g/dL Red Cell Distribution Width 15.3 11.0-15.5 % Platelet Count 210 130-400 K/uL Mean Platelet Volume 10.0 7.5-10.5 fL Immature Granulocyte % (Auto) 0.4 0-1 % Neutrophils (%) (Auto) 50.3 40.0-77.0 % Lymphocytes (%) (Auto) 29.6 21.0-51.0 % Monocytes (%) (Auto) 15.8 H 3.0-13.0 % Eosinophils (%) (Auto) 3.5 0.0-8.0 % Basophils (%) (Auto) 0.4 0.0-5.0 % Neutrophils # (Auto) 2.6 1.8-7.7 K/uL Lymphocytes # (Auto) 1.5 1.0-4.8 K/uL Monocytes # (Auto) 0.8 0.1-1.0 K/uL Eosinophils # (Auto) 0.18 0.00-0.70 K/uL Basophils # (Auto) 0.02 0.00-0.20 K/uL Absolute Immature Granulocyte (auto 0.02 0-1 K/uL Nucleated Red Blood Cells 0.0 0.0-0.19 % Chemistry Labs: Test 07/27/24 03:31 Range/Units Sodium Level 139 136-145 mmol/L Potassium Level 4.2 3.5-5.1 mmol/L Chloride Level 108 101-111 mmol/L Carbon Dioxide Level 23 21-32 mmol/L Blood Urea Nitrogen 20 H 7-18 mg/dL Creatinine 1.4 H 0.5-1.0 mg/dL Glomerular Filtration Rate Calc 38 >90 mL/min Random Glucose 89 70-105 mg/dL Total Calcium 8.2 L 8.5-10.1 mg/dL B-Type Natriuretic Peptide 1880 H 0-100 pg/mL Diagnostics / Radiology: 2D Echo on 07/22/2024 Conclusion LVEF is 60-65%. Stage II diastolic dysfunction. The left atrium size is mildly dilated. Due to thickening of the aortic and mitral valves , cannot exclude a vegetation, however the thickening appears to be diffuse calcification of the valve cusps/leaflets. Impression and Plan: Acute on chronic HFpEF: History of nonischemic cardiomyopathy with LVEF of 20%, recovered by 2D echo on 07/22/2024 with LVEF of 60-65% and stage II diastolic dysfunction: Recent hospitalization with nausea, vomiting, and acute kidney injury, discharged 07/24/2024, likely volume resuscitation is cause of decompensation: -Hold Entresto due to hypotension, sbp in the 90's -New decreased dose of Metoprolol succinate 25mg q hs was not given due to sbp in the 90's -Slight worsening of bilateral pulmonary infiltrates since last chest x-ray, will add an additional 20mg of IV Lasix to complete 40mg IV this morning. History of prior Biotronik AICD insertion March 16, 2019 with dual-chamber device, with both atrial and ventricular lead failure currently with all therapies turned off: History of inappropriate discharges of defibrillator due to LV lead dysfunction with all therapies programmed off: -According to [facility] notes the patient previously was at a DNR status and this will need to be clarified. The patient's reports that she is not at DNR: -Case management to clarify History of paroxysmal atrial fibrillation on Multaq and metoprolol therapy: -Continue Multaq 400 b.i.d. -Metoprolol succinate to 25mg q hs was held last night due to sbp in the 90's Hypotension discharged recently on midodrine: -Hold Midodrine therapy, continue to trend blood pressure Normal coronary arteries by cardiac catheterization in 2018 REBEKA Braun TRANSIT SURVEY WORKER Jul 28, 2024 10:06
--- NOTE | 2024-07-28 11:25 | DS ---
Discharge Summary Hospital Course This is a 78-year-old female with history of dementia, hypertension, alcohol abuse, and nonischemic cardiomyopathy, who presented to hospital with chest pain. The patient is a very poor historian. However, in the Emergency Room, the patient was found with elevated troponin at 379. BNP also was elevated to 2090. Chest x-ray shows [id number] pulmonary congestion. The patient was recently discharged from this facility earlier today after being managed as a case of dehydration and noninfectious gastroenteritis. Patient was started on diuretics. Cardiology was consulted and evaluated patient. No invasive intervention during this hospitalization. BNP improved to 1880. We will discha rge patient to home today. FINAL DISCHARGE DIAGNOSIS: Possible angina pectoris. Acute on chronic congestive heart failure. Elevated troponin. Acute renal failure. Encephalopathy. Dementia. Chronic alcohol use. PLAN: Discharge patient to home today. Continue same home medications except for metoprolol succinate decreased to 25 mg at bedtime. Follow up with PCP in 3-5 days. Follow up with group contract analyst in 1-2 weeks. This case was reviewed and discussed with my supervising physician and the above assessment and plan was formulated and agreed upon. ATTESTATION BY PHYSICIAN I have seen and examined the patient. I reviewed the documentation, medical decision making, and treatment plan as noted by the mid-level provider above. I agree with the findings and plan of care. ANDRIY ESPINOZA MD, MIRTA L FNP Jul 28, 2024 11:25
[2024-07-28] MEDS: furoSEMIDE 20MG VIAL IV ONE (13:21)
[2024-07-28] MEDS ORDERED: METO-408 PO (14:08)
[2024-07-28] MEDS: SACUBITRIL/VALSARTAN 1 EACH TABLET PO SCH (20:23)
[2024-07-28] MEDS: PANTOPrazole 40 MG TAB DR PO SCH (20:24)
[2024-07-29] VITALS (8 sets, daily range): BP systolic 86–124; BP diastolic 37–65; PULSE 80–119; RESP 18–20; TEMP 97.6–98.8; O2SAT 97
[2024-07-29] MEDS: MELATONIN 5 MG TABLET PO ONE (01:16)
--- NOTE | 2024-07-29 01:19 | NUR ---
contacted dr. dong patient is unable to sleep has not slept in 2 nights Haldol was given for agitation earlier and scheduled Ambien - 0000 unable to sleep fighting with sitter 1:1 very restlessness - new order melatonin 5 mg po qhs given will cont to monitor
--- NOTE | 2024-07-29 04:14 | NUR ---
report given to edwin reyes
--- NOTE | 2024-07-29 04:25 | NUR ---
ASSUME ASSUMED CARE OF PT FROM NOW. ROUNDS DONE. V/S MONITORED, STABLE. PT STILL VERY CONFUSED AND SHOUTING. SITTER KEEPING CLOSE WATCH.
[2024-07-29 04:38] LABS: MAGNESIUM 1.5 mg/dL (1.80-2.40); POTASSIUM 3.7 mmol/L (3.5-5.1)
[2024-07-29 05:01] LABS: BASOPHILS # (AUTO) 0.07 K/uL (0.00-0.20); BASOPHILS % (AUTO) 0.4 % (0.0-5.0); EOSINOPHILS # (AUTO) 0.06 K/uL (0.00-0.70); EOSINOPHILS % (AUTO) 0.4 % (0.0-8.0); HEMATOCRIT 26.5 % (36-48); IMMATURE GRANULOCYTE ABSOLUTE 0.06 K/uL (0-1); LYMPHOCYTES # (AUTO) 0.9 K/uL (1.0-4.8); LYMPHOCYTES % (AUTO) 5.6 % (21.0-51.0); MEAN CORPUSCULAR HEMOGLOBIN 34.8 pg (27.0-33.0); MONOCYTES # (AUTO) 1.5 K/uL (0.1-1.0); MONOCYTES % (AUTO) 9.5 % (3.0-13.0); NEUTROPHILS # (AUTO) 13.1 K/uL (1.8-7.7); NEUTROPHILS % (AUTO) 83.7 % (40.0-77.0); PLATELET COUNT (AUTO) 139 K/uL (130-400); RED BLOOD CELL COUNT(AUTO) 2.82 MIL/uL (4.00-5.50); RED CELL DISTRIBUTION WIDTH 14.8 % (11.0-15.5); WHITE BLOOD COUNT (AUTO) 15.7 K/uL (4.8-10.8)
[2024-07-29] MEDS: PoTASSium chloRIDE 20MEQ ER 20 MEQ ERTAB PO PRN (05:43)
[2024-07-29] MEDS: MAGNESIUM 2GM PREMIX 50ML 50 ML IV PRN (05:43)
--- NOTE | 2024-07-29 05:45 | NUR ---
N/V PT GIVEN PO MEDS BUT VOMITED RIGHT AFTER SWALLOWING MEDS. PT CLEANED AND RE-POSITIONED IN BED WITH HOB ELEVATED. DR ESPINOZA CALLED AND INFORMED OF PT'S CONDITION. NEW MED ORDERS RECEIVED, PLEASE REFER TO CPOE. WILL MEDICATE PT.
[2024-07-29] MEDS: ondanSETRON 4MG INJ IVP PRN (06:21)
[2024-07-29] MEDS: HALOPERIDOL INJ 5 MG/ML VIAL IV PRN (06:21)
--- NOTE | 2024-07-29 07:46 | PN ---
[facility] Cardiology Progress Note CARDIOLOGY PROGRESS NOTE JULY 29, 2024 Problems: 1. Acute on chronic diastolic heart failure 2. History of dilated cardiomyopathy with ejection fraction improving from 20% to 60-65% by echo June 2024 3. Normal coronary arteries 2018 4. Biotronik PCD implant February 2019 with atrial and RV lead dysfunction with therapies turned off because of inappropriate shocks 5. Paroxysmal atrial fibrillation 6. Dementia Blood pressure is running 110-120 systolic heart rate is in the 90s the patient [place]febrile. [place] [address] hemoglobin 9.8 Platelet count [id number]. Potassium 3.7 BUN14 creatinine 1.0. The patient continues on aspirin dronedarone Lovenox for DVT prophylaxis IV furosemide Haldol p.r.n. metoprolol succinate pantoprazole potassium protocol Entresto. Chest x-ray yesterday sh owed passive congestive changes minimal blunting of the right costophrenic angle. Weight is down2 kilos since admission. She is currently lying comfortably flat. No rales on admission. I am concerned about her rise in white count. She was here recently with pneumonia. We will leave a decision as to whether she should start on antibiotics to the primary care. MITESH DYER MD Jul 29, 2024 07:46
[2024-07-29] MEDS: miDODRine HCL 5 MG TABLET PO SCH (08:44)
[2024-07-29] MEDS: metOPROLol sucCINATE 25 MG TAB.SR.24H PO ONE (08:45)
[2024-07-29] MEDS: furoSEMIDE 40 MG TABLET PO SCH (08:46)
--- NOTE | 2024-07-29 14:38 | NUR ---
CM NOTE/HOME O2 CM obtained in network DME list from [facility] website. CM spoke to Timoteo with [facility]. States they are out of network with patient's insurance. CM faxed referral to [facility] since they are listed as in network. Received call back that they are also out of network. [facility] listed as in network. CM faxed referral. Pending call back. Addendum: 07/29/24 at 1443 by DIONTE CORRALES CM Amended: Links added.
--- NOTE | 2024-07-29 15:39 | NUR ---
CM NOTE/AHP CM received call from Alessandra with [facility] states they are out of network with patient's insurance. CM called [facility] and spoke to Jason. States patient may have out of network benefits and advised CM to send referral to [facility]. CM explained that referral had been sent but received call that they were out of network. States he will call [place] office to assist CM. CM then received call back from Melonie with [facility]. States she will be calling insurance to verify out of network benefits and will call CM back with update.
--- NOTE | 2024-07-29 16:19 | NUR ---
CM NOTE/O2 APPROVED CM spoke to Melonie with [facility]. States patient's home o2 is approved and will be scheduling delivery today. HUMPHREY advised Melonie to call spouse for delivery. Addendum: 07/29/24 at 1621 by DIONTE CORRALES CM Amended: Links added.
--- NOTE | 2024-07-29 17:45 | NUR ---
EMS notified EMS of transfer from room 228 to pt home pt is oxygen dependent called to tell me home oxygen has been delivered and instructed on use
--- NOTE | 2024-07-29 20:25 | NUR ---
Pt left with EMS via stretcher to home. Packet given to EMS.
--- NOTE | 2024-07-30 17:24 | DS ---
Discharge Summary Hospital Course Dictating for 07/29/2024. This is a 78-year-old female with history of dementia, hypertension, alcohol abuse, and nonischemic cardiomyopathy, who presented to hospital with chest pain. The patient is a very poor historian. However, in the Emergency Room, the patient was found with elevated troponin at 379. BNP also was elevated to 2090. Chest x-ray shows [id number] pulmonary congestion. The patient was recently discharged from this facility earlier today after being managed as a case of dehydration and noninfectious gastroenteritis. Patient was started on diuretics. Cardiology was consulted and evaluated patient. No invasive intervention during this hospitalization. BNP improved to 1880. Patient failed a 6 minute walk and case management setting up for home O2. We will discharge once home oxygen is arranged. FINAL DISCHARGE DIAGNOSIS: Possible angina pectoris. Acute on chronic congestive heart failure. Elevated troponin. Acute renal failure. Encephalopathy. Dementia. Chronic alcohol use. Leukocytosis possible reactive. PLAN: Case management working on setting up for home O2. Discharge patient to home once home oxygen is set up. Continue same home medications except for metoprolol succinate decreased to 25 mg at bedtime. Follow up with PCP in 3-5 days. Follow up with inventory and pricing associate in 1-2 weeks. This case was reviewed and discussed with my supervising physician and the above assessment and plan was formulated and agreed upon. HERNANDO BOWLING Jul 30, 2024 17:24
== END 2024-07-29 20:25 | disposition home or self-care (01) | DRG 291 ==
LOC: EDH 19:29 → EDHIP 23:07 → 2DH 07-25 00:03
PROVIDERS: ADMIT Internal Medicine Infectious Disease; ATTEND Internal Medicine Infectious Disease
DX: I11.0 Hypertensive heart disease with heart failure (principal); I50.43 Acute on chronic combined systolic (congestive) and diastolic (congestive) heart failure; N17.9 Acute kidney failure, unspecified; I24.89 Other forms of acute ischemic heart disease; G93.40 Encephalopathy, unspecified; F03.90 Unspecified dementia, unspecified severity, without behavioral disturbance, psychotic disturbance, mood disturbance, and anxiety; K76.0 Fatty (change of) liver, not elsewhere classified; E86.0 Dehydration; I48.0 Paroxysmal atrial fibrillation; I95.9 Hypotension, unspecified; I42.0 Dilated cardiomyopathy; I35.8 Other nonrheumatic aortic valve disorders; K21.9 Gastro-esophageal reflux disease without esophagitis; E66.9 Obesity, unspecified; Z68.26 Body mass index [BMI] 26.0-26.9, adult; Z82.49 Family history of ischemic heart disease and other diseases of the circulatory system; Z95.810 Presence of automatic (implantable) cardiac defibrillator; Z79.899 Other long term (current) drug therapy; Z79.84 Long term (current) use of oral hypoglycemic drugs; Z88.5 Allergy status to narcotic agent; Z90.49 Acquired absence of other specified parts of digestive tract
CPT/HCPCS: 36415; 71045; 80048; 82550; 82948; 83036; 83605; 83735; 83880; 84484; 85025; 85610; 85730; 87040; 93005; 94640; 94664; 94760; 96372; G0378; J1100; J1630; J1650; J1940; J2405; J3475

== ENCOUNTER 2024-08-08 07:37 | Emergency (ER) | payer OTHER ==
[~2024-08-08] VITALS: Ht 160 cm; Wt 69.4 kg
[~2024-08-08 07:37] MED LIST changes: -FURO20TA4 PO; -METO-391 PO; -SACU1TAB7 PO
--- NOTE | 2024-08-08 07:40 | NUR ---
NOTE PATIENT DIFFICULTY VENIPUNCTURE AND IV INSERTION DUE TO EDEMA TO BILATERAL EXTREMITIES.
--- NOTE | 2024-08-08 08:18 | ERN ---
ED Note History of Present Illness Stated Complaint: WEAKNESS Chief Complaint: Weakness Time Seen by MD: 07:43 Dictation: Patient is 78-year-old female patient with past medical history of dementia, hypertension, idiopathic dilated cardiomyopathy and atrial fibrillation, who presented to the ED for weakness. Patient was discharged from [facility] yesterday. At discharge home PT and [facility] home health was discussed but patient refused. Per , patient is refusing SNF placement for rehab but he states he needs help at home. Currently patient denies any chest pain, dizziness, shortness of breath, fevers, or chills. She is unable to describe how she feels but admits to fatigue and generalized weakness. Allergies: Coded Allergies: codeine (Unverified Allergy, Unknown, 02/19/19) Home Meds Active Scripts Acidophilus/Bulgaricus (Floranex Granules Packet) 100 Million Cell Gran.pack, 1 EACH PO TID for diarrhea, #30 PACK Prov:ТАТЬЯНА WETZEL MD 04/18/24 Ondansetron (Ondansetron Odt) 4 Mg Tab.rapdis, 4 MG PO Q6HPRN for nausea, #15 TAB Prov:ТАТЬЯНА WETZEL MD 04/18/24 Acetaminophen (Tylenol) 500 Mg Tab, 500 MG PO Q6HPRN, #30 TAB Prov:ТАТЬЯНА WETZEL MD 04/18/24 Reported Medications Dronedarone Hydrochloride (Multaq) 400 Mg Tablet, 400 MG PO BIDMEALS, TAB 07/31/24 Midodrine HCl (Midodrine HCl) 5 Mg Tablet, 1 TAB PO TID 07/19/24 Zolpidem Tartrate (Ambien) 10 Mg Tablet, 10 MG PO HS, TAB 03/16/24 Pantoprazole Sodium (Pantoprazole Sodium) 40 Mg Tablet.dr, 40 MG PO BID, TAB 02/19/19 Discontinued Reported Medications Metoprolol Succinate (Metoprolol Succinate) 100 Mg Tab.er.24h, 50 MG PO DAILY, TAB 07/31/24 Sacubitril/Valsartan (Entresto 49 mg-51 mg Tablet) 1 Each Tablet, 1 EACH PO BID, TAB 12/07/22 Furosemide (Furosemide) 20 Mg Tablet, 20 MG PO AM, TAB 02/19/19 Past Medical History Past Medical History: CHF, Dementia, Hypertension, Other Additional Past Medical Hx: HYPOTENSION Surgical History: Pacer/AICD Family History: CAD, HTN Social History: Negative, Lives with family Review of System Dictation Constitutional-no chills, weight loss/gain, fever Eyes-no injury, pain, redness and discharge ENT-no injury, pain, swelling Cardiovascular- no chest pain, palpitations, edema Respiratory- no shortness of breath, cough, wheezing Abdomen/GI-no abdominal pain, diarrhea, constipation, vomiting, nausea Back no injury and pain Genitourinary no injury, bleeding and discharge Musculoskeletal/extremities no injury, deformity Skin no rash, discoloration Neuro-no numbness, tingling, seizures, tremors. positive for weakness and headache Psych-no suicidal ideation, homicidal ideation, hallucinations, depression, anxiety, memory loss Initial Vital Sign VS Vital Signs Date Time Temp Pulse Resp B/P (MAP) Pulse Ox O2 Delivery O2 Flow Rate FiO2 08/08/24 07:41 98.2 86 20 160/84 92 Room Air 08/08/24 07:48 0 21 Physical Exam Dictation General-patient is awake alert and oriented but has memory recall issues Head/neck-normocephalic, atraumatic Eyes-PERRL, EOMI, vision at baseline Neck-trachea midline, supple, no nuchal rigidity Cardiovascular-RRR, normal S1/S2, no MRG is, no JVD Respiratory-no distress, wheezing, rales, rhonchi Abdomen-no tenderness, guarding, soft, nondistended Skin warm, dry, normal turgor, no rash Musculoskeletal/extremities pulses equal, no cyanosis, 1+ pitting edema bilateral legs and arms Neuro-COA X 4, GCS 15, CN 2-12 intact, strength 3/5 Psych-normal behavior, mood and affect normal Results (Laboratory/Radiology) Laboratory/Radiology Laboratory Tests Test 08/08/24 08:55 08/08/24 09:19 Sodium Level 142 mmol/L (136-145) Potassium Level 3.8 mmol/L (3.5-5.1) Chloride Level 110 mmol/L (101-111) Carbon Dioxide Level 19 mmol/L (21-32) L Blood Urea Nitrogen 6 mg/dL (7-18) L Creatinine 1.0 mg/dL (0.5-1.0) Glomerular Filtration Rate Calc 57 mL/min (>90) Random Glucose 78 mg/dL (70-105) Total Calcium 8.3 mg/dL (8.5-10.1) L Total Creatine Kinase 56 U/L (21-232) # White Blood Count 5.7 K/uL (4.8-10.8) Red Blood Count 2.62 MIL/uL (4.00-5.50) L Hemoglobin 9.0 g/dL (12.0-16.0) L Hematocrit 24.4 % (36-48) L Mean Corpuscular Volume 93.1 fL (79-99) Mean Corpuscular Hemoglobin 34.4 pg (27.0-33.0) H Mean Corpuscular Hemoglobin Concent 36.9 g/dL (32.0-36.0) H Red Cell Distribution Width 16.0 % (11.0-15.5) H Platelet Count 371 K/uL (130-400) Mean Platelet Volume 9.5 fL (7.5-10.5) Immature Granulocyte % (Auto) 1.9 % (0-1) H Neutrophils (%) (Auto) 59.8 % (40.0-77.0) Lymphocytes (%) (Auto) 22.8 % (21.0-51.0) Monocytes (%) (Auto) 11.2 % (3.0-13.0) Eosinophils (%) (Auto) 3.2 % (0.0-8.0) Basophils (%) (Auto) 1.1 % (0.0-5.0) Neutrophils # (Auto) 3.4 K/uL (1.8-7.7) Lymphocytes # (Auto) 1.3 K/uL (1.0-4.8) Monocytes # (Auto) 0.6 K/uL (0.1-1.0) Eosinophils # (Auto) 0.18 K/uL (0.00-0.70) Basophils # (Auto) 0.06 K/uL (0.00-0.20) Absolute Immature Granulocyte (auto 0.11 K/uL (0-1) Nucleated Red Blood Cells 0.0 % (0.0-0.19) B-Type Natriuretic Peptide 1190 pg/mL (0-100) H ED Course ED Course Orders Procedure Category Date Status Time Basic Metabolic Panel LAB 08/08/24 Complete 07:44 Cbc With Differential LAB 08/08/24 Complete 07:44 Creatine Kinase, Total LAB 08/08/24 Complete 07:44 B-Type Natriuretic LAB 08/08/24 Complete Peptide 07:44 Vital Signs Date Time Temp Pulse Resp B/P (MAP) Pulse Ox O2 Delivery O2 Flow Rate FiO2 08/08/24 10:15 97.9 66 14 116/52 95 Room Air* 0 21 08/08/24 07:48 97.9 86 20 118/52 98 Room Air* 0 21 08/08/24 07:41 98.2 86 20 160/84 92 Room Air Medical Decision Making [facility] MDM INITIAL IMPRESSION Initial history and physical concerning for debility Contributing medical problems: dementia, CHF I have reviewed the triage nursing notes and vital signs. Initial plan: Laboratory evaluation, UA DATA REVIEW I have reviewed additional NN, repeat VS, and monitoring where indicated. Heart rate, blood pressure, and O2 saturation are acceptable. ED COURSE Interventions: None Reassessment: Baseline DISPOSITION Final diagnostic impression: I discussed my findings, clinical impression and treatment recommendations with the patient. My final plan for disposition was made based upon -mild risk of complications and potential morbidity of the patient's condition. -Discussion with the patient regarding management options. Patient will be discharged home advised to follow up with home PT and home health. Patient was just discharged yesterday. Had a long conversation that the patient likely can take care of herself and recommend a jail she was evaluated for a jail yesterday but his management, but the family is adamant that they did not want to a jail. Patient does not a jail. I offered admission for case management to get her a bed at jail, but that is on the reports of the prefer to go homeless time. DX & DISP Disposition: Discharge Departure Impression: Primary Impression: Debility Additional Impression: CHF (congestive heart failure) Condition: Stable Additional Instructions: Establish home health and home PT. Follow up with PCP. Limit salt, avoid fatty foods, and eat a heart healthy diet. Limit excessive fluid intake, and drink mostly water. Resume normal daily activities as tolerated, and asked her healthcare provider about an exercise program. Take her medications exactly as prescribed. Always keep your doctor's appointments, and call your doctor's office if you have any questions or concerns. Raise her legs above the level of your heart as often as possible during the day to help with fluid buildup. FOLLOW-UP WITH PRIMARY CARE PROVIDER IN 1 TO 2 DAYS. TAKE MEDICATIONS DIRECTED HERE IN THE EMERGENCY ROOM. OKAY TO CONTINUE HOME MEDICATIONS UNLESS OTHERWISE DISCUSSED DURING YOUR VISIT IN THE EMERGENCY ROOM TODAY. RETURN TO YOUR NEAREST EMERGENCY ROOM IF SYMPTOMS WORSEN OR IF THERE IS NO IMPROVEMENT. CALL 911 IF YOU NEED IMMEDIATE ASSISTANCE. TAKE TYLENOL [id number] NEEDED AND IF NO CONTRAINDICATIONS ARE PRESENT. INCREASE ORAL HYDRATION. A WOUND CULTURE OR URINE CULTURE WAS ORDERED HERE IN THE EMERGENCY ROOM DEPARTMENT PLEASE FOLLOW-UP WITH PRIMARY CARE PROVIDER AND ADVISE THEM TO GET REPEAT PORTS FROM OUR FACILITY. IF YOU HAD ANY STANISLAV WRAP/SPLINTS THAT WERE APPLIED HERE, PLEASE DO NOT REMOVE THEM UNTIL YOU SEE YOUR PRIMARY CARE OR SPECIALTY. Referrals: MONA FRIEDMAN MD (PCP) Time of Disposition: 10:18 I have reviewed I have reviewed the case I have examined patient I performed a substantive portion of the visit. I have reviewed and personally made and approve the management plan that is documented in the notes by myself with TYRON/resident. I acknowledged full responsibility for the patient's management plan. GABRIELLE ANTON MD Aug 08, 2024 08:18 ENMA SANTOS DO Aug 08, 2024 15:49
--- NOTE | 2024-08-08 08:30 | NUR ---
PATIENT STATES UNABLE TO PROVIDE URINE SPECIMEN AT THIS TIME RELATED TO LETHARGY AND DECLINES IN AND OUT URINARY CATHETER.
[2024-08-08 09:17] LABS: POTASSIUM 3.8 mmol/L (3.5-5.1)
[2024-08-08 09:31] LABS: BASOPHILS # (AUTO) 0.06 K/uL (0.00-0.20); BASOPHILS % (AUTO) 1.1 % (0.0-5.0); EOSINOPHILS # (AUTO) 0.18 K/uL (0.00-0.70); EOSINOPHILS % (AUTO) 3.2 % (0.0-8.0); HEMATOCRIT 24.4 % (36-48); IMMATURE GRANULOCYTE ABSOLUTE 0.11 K/uL (0-1); LYMPHOCYTES # (AUTO) 1.3 K/uL (1.0-4.8); LYMPHOCYTES % (AUTO) 22.8 % (21.0-51.0); MEAN CORPUSCULAR HEMOGLOBIN 34.4 pg (27.0-33.0); MEAN CORPUSCULAR HGB CONC 36.9 g/dL (32.0-36.0); MEAN CORPUSCULAR VOLUME 93.1 fL (79-99); MONOCYTES # (AUTO) 0.6 K/uL (0.1-1.0); MONOCYTES % (AUTO) 11.2 % (3.0-13.0); NEUTROPHILS # (AUTO) 3.4 K/uL (1.8-7.7); NEUTROPHILS % (AUTO) 59.8 % (40.0-77.0); PLATELET COUNT (AUTO) 371 K/uL (130-400); RED BLOOD CELL COUNT(AUTO) 2.62 MIL/uL (4.00-5.50); WHITE BLOOD COUNT (AUTO) 5.7 K/uL (4.8-10.8)
[2024-08-08 10:00] LABS: B-TYPE NATRIURETIC PEPTIDE 1190 pg/mL (0-100)
[2024-08-08 10:15] VITALS: BP 116/52; PULSE 66; RESP 14; TEMP 97.9; O2SAT 95
--- NOTE | 2024-08-08 10:30 | NUR ---
DISCHARGE HOME, REQUIRING EMS TRANSPORT DUE TO SPOUSE STATING IS UNABLE TO ASSIST IN TRANSFERING TO VEHICLE. PATIENT REQUIRES X2-3 ASSITANCE, GENERALIZED WEAKNESS,.
--- NOTE | 2024-08-08 11:16 | NUR ---
[facility] ARRIVED FOR TRANSPORT AT THIS TIME
[2024-08-09] MEDS ORDERED: FURO-152 PO (13:54)
== END 2024-08-08 11:17 | disposition home or self-care (01) ==
LOC: EDH 07:37
DX: R53.81 Other malaise (principal); I11.0 Hypertensive heart disease with heart failure; I50.9 Heart failure, unspecified; F03.90 Unspecified dementia, unspecified severity, without behavioral disturbance, psychotic disturbance, mood disturbance, and anxiety; Z02.2 Encounter for examination for admission to residential institution; Z59.00 Homelessness unspecified; Z79.899 Other long term (current) drug therapy; Z88.5 Allergy status to narcotic agent; Z95.810 Presence of automatic (implantable) cardiac defibrillator
CPT/HCPCS: 36415; 80048; 82550; 83880; 85025; 99282

== ENCOUNTER 2024-08-09 10:04 | Emergency (ER) | payer OTHER ==
[~2024-08-09] VITALS: Ht 154.9 cm; Wt 77.1 kg
--- NOTE | 2024-08-09 10:26 | ERN ---
ED Note History of Present Illness Stated Complaint: LOWER EXT SWELLING Chief Complaint: LOWER EXTREMITY EDEMA Time Seen by MD: 10:13 Dictation: PATIENT IS A 78-YEAR-OLD FEMALE COMING IN VIA EMS WITH COMPLAINTS OF FEELING SICK. SHE DENIES ANY SPECIFIC COMPLAINTS NO FEVER NO CHILLS NO NAUSEA VOMITING NO CHEST PAIN NO BACK PAIN NO ABDOMINAL PAIN NO CHANGE IN URINATION. SHE WAS HERE YESTERDAY AND WORKED UP AND WAS INSTRUCTED TO FOLLOW UP WITH HER PRIMARY CARE DOCTOR FOR OUTPATIENT PHYSICAL THERAPY AND SHE REFUSED. Allergies: Coded Allergies: codeine (Unverified Allergy, Unknown, 02/19/19) Home Meds Active Scripts Furosemide (Lasix) 20 Mg Tablet, 1 TAB PO DAILY for 5 Days, #5 TAB 0 Refills Prov:ANNE RAMSAY NP 08/09/24 Acidophilus/Bulgaricus (Floranex Granules Packet) 100 Million Cell Gran.pack, 1 EACH PO TID for diarrhea, #30 PACK Prov:ТАТЬЯНА WETZEL MD 04/18/24 Ondansetron (Ondansetron Odt) 4 Mg Tab.rapdis, 4 MG PO Q6HPRN for nausea, #15 TAB Prov:ТАТЬЯНА WETZEL MD 04/18/24 Acetaminophen (Tylenol) 500 Mg Tab, 500 MG PO Q6HPRN, #30 TAB Prov:ТАТЬЯНА WETZEL MD 04/18/24 Reported Medications Dronedarone Hydrochloride (Multaq) 400 Mg Tablet, 400 MG PO BIDMEALS, TAB 07/31/24 Midodrine HCl (Midodrine HCl) 5 Mg Tablet, 1 TAB PO TID 07/19/24 Zolpidem Tartrate (Ambien) 10 Mg Tablet, 10 MG PO HS, TAB 03/16/24 Pantoprazole Sodium (Pantoprazole Sodium) 40 Mg Tablet.dr, 40 MG PO BID, TAB 02/19/19 Discontinued Reported Medications Metoprolol Succinate (Metoprolol Succinate) 100 Mg Tab.er.24h, 50 MG PO DAILY, TAB 07/31/24 Sacubitril/Valsartan (Entresto 49 mg-51 mg Tablet) 1 Each Tablet, 1 EACH PO BID, TAB 12/07/22 Furosemide (Furosemide) 20 Mg Tablet, 20 MG PO AM, TAB 02/19/19 Past Medical History Past Medical History: CHF, Dementia Additional Past Medical Hx: HYPOTENSION Surgical History: Other Family History: CAD, HTN Social History: Negative, Lives with family History: Not Applicable RN Note Reviewed/Agreed w/PFSH: Yes Review of System Dictation CONSTITUTIONAL: NEGATIVE EXCEPT FOR HPI FEELING SICK HEAD/FACE: NEGATIVE EXCEPT FOR HPI EENT: NEGATIVE EXCEPT FOR HPI RESPIRATORY: NEGATIVE EXCEPT FOR HPI GASTROINTESTINAL/ABDOMINAL: NEGATIVE EXCEPT FOR HPI GENITOURINARY: NEGATIVE EXCEPT FOR HPI MUSCULOSKELETAL: NEGATIVE EXCEPT FOR HPI INTEGUMENTARY: NEGATIVE EXCEPT FOR HPI NEUROLOGICAL/PSYCH: NEGATIVE EXCEPT FOR HPI HEMATOLOGIC/LYMPHATIC: NEGATIVE EXCEPT FOR HPI ALL SYSTEMS NEGATIVE, EXCEPT NOTED ABOVE. 13 POINT REVIEW OF SYSTEMS ASSESSED AND ALL NEGATIVE EXCEPT FOR ABOVE. Initial Vital Sign VS Vital Signs Date Time Temp Pulse Resp B/P (MAP) Pulse Ox O2 Delivery O2 Flow Rate FiO2 08/09/24 10:07 98.8 103 18 116/77 96 Room Air 0 08/09/24 15:53 21 Physical Exam Dictation VITAL SIGNS REVIEWED GENERAL APPEARANCE: ALERT, ORIENTED X 3, PATIENT APPEARS WEAK AND DEBILITATED. HEAD AND FACE: NON-TRAUMATIC. EYES: PERRL, PINK CONJUNCTIVAS, EYELID NO TRAUMA, ANTERIOR CHAMBER WITH ARCUS SENILIS. EARS: PINNAS INTACT AND NO SIGNS OF TRAUMA OR ERYTHEMA EAR CANALS CLEAR AND NO DISCHARGE TM NO ERYTHEMA NOSE: NO DISCHARGE, NO BLEEDING. OROPHARYNX: MOUTH NORMAL, TONGUE PINK, PHARYNX CLEAR,NO ERYTHEMA, TONSILS NO EXUDATES, NO ABSCESSES NOTED, MUCOUS MEMBRANE MOIST NECK: SUPPLE, NON-TENDER, NO THYROMEGALY, NO MASSES, NO JVD, NO BRUITS BREAST:DEFERRED CHEST:NO TENDERNESS, NO CREPITUS, NO PARADOXICAL MOVEMENT, NO RETRACTIONS LUNGS:CLEAR, WELL-VENTILATED, SYMMETRIC, NO RALES, NO WHEEZING, NO RHONCHI, NO STRIDOR, GOOD BREATH SOUNDS BILATERALLY HEART: REGULAR RATE, REGULAR RHYTHM, NO MURMUR, NO GALLOPS VASCULAR: TRACE PERIPHERAL EDEMA, ABDOMEN: SOFT, POSITIVE BOWEL SOUNDS, NONDISTENDED, NO GUARDING, NONTENDER, NO REBOUND, NO MASSES NO HEPATOMEGALY, NO SPLENOMEGALY, NO DALAL'S SIGN, NO HERNIAS. RECTAL: DEFERRED GENITAL: DEFERRED NEUROLOGICAL: NORMAL SPEECH, MOTOR FUNCTION INTACT, SENSORY FUNCTION INTACT MUSCULOSKELETAL: NECK NONTENDER, FULL RANGE OF MOTION, BACK NONTENDER, FULL RANGE OF MOTION, EXTREMITIES: NONTENDER, FULL RANGE OF MOTION SKIN: COLOR PINK, DRY, NO TURGOR, NO RASH, NO LACERATIONS, NO ABRASIONS, NO CONTUSIONS. LYMPHATIC: DEFERRED Results (Laboratory/Radiology) Laboratory/Radiology Laboratory Tests Test 08/09/24 13:07 White Blood Count 5.6 K/uL (4.8-10.8) Red Blood Count 2.57 MIL/uL (4.00-5.50) L Hemoglobin 8.7 g/dL (12.0-16.0) L Hematocrit 24.0 % (36-48) L Mean Corpuscular Volume 93.4 fL (79-99) Mean Corpuscular Hemoglobin 33.9 pg (27.0-33.0) H Mean Corpuscular Hemoglobin Concent 36.3 g/dL (32.0-36.0) H Red Cell Distribution Width 16.3 % (11.0-15.5) H Platelet Count 346 K/uL (130-400) Mean Platelet Volume 9.5 fL (7.5-10.5) Immature Granulocyte % (Auto) 0.5 % (0-1) Neutrophils (%) (Auto) 63.8 % (40.0-77.0) Lymphocytes (%) (Auto) 22.4 % (21.0-51.0) Monocytes (%) (Auto) 9.4 % (3.0-13.0) Eosinophils (%) (Auto) 3.0 % (0.0-8.0) Basophils (%) (Auto) 0.9 % (0.0-5.0) Neutrophils # (Auto) 3.6 K/uL (1.8-7.7) Lymphocytes # (Auto) 1.3 K/uL (1.0-4.8) Monocytes # (Auto) 0.5 K/uL (0.1-1.0) Eosinophils # (Auto) 0.17 K/uL (0.00-0.70) Basophils # (Auto) 0.05 K/uL (0.00-0.20) Absolute Immature Granulocyte (auto 0.03 K/uL (0-1) Nucleated Red Blood Cells 0.0 % (0.0-0.19) Sodium Level 143 mmol/L (136-145) Potassium Level 3.2 mmol/L (3.5-5.1) L Chloride Level 110 mmol/L (101-111) Carbon Dioxide Level 22 mmol/L (21-32) Blood Urea Nitrogen 6 mg/dL (7-18) L Creatinine 0.9 mg/dL (0.5-1.0) Glomerular Filtration Rate Calc 65 mL/min (>90) Random Glucose 88 mg/dL (70-105) Total Calcium 8.0 mg/dL (8.5-10.1) L Troponin I High Sensitivity 28 ng/L (4-50) B-Type Natriuretic Peptide 942 pg/mL (0-100) H Lipase 18 U/L (16-77) Labs Reviewed?: Yes EKG Comment: EKG SINUS TACHYCARDIA/HEART RATE 104 T-WAVE CHANGES LATERAL LEADS V4 FIVE QT534 MILLISECOND ED Course ED Course Orders Procedure Category Date Status Time Cbc With Differential LAB 08/09/24 Complete 10:22 Troponin I High LAB 08/09/24 Complete Sensitivity 10:22 12 Lead Ekg Tracing- EKG 08/09/24 Resulted Technical 10:22 Lipase LAB 08/09/24 Complete 10:22 Basic Metabolic Panel LAB 08/09/24 Complete 10:22 B-Type Natriuretic LAB 08/09/24 Complete Peptide 10:22 Potassium Bicarb/Cit PHA 08/09/24 Complete Ac 25meq (K-Lyte Ta 14:00 Current Medications Medications (Trade) Dose Ordered Sig/Gilbert Route PRN Reason Start Time Stop Time Status Last Admin Dose Admin Potassium Bicarbonate (K-Lyte Tablet Eff 25 Meq Tablet.eff) 25 meq ONCE ONCE PO 08/09/24 14:00 08/09/24 14:01 DC 08/09/24 15:08 Vital Signs Date Time Temp Pulse Resp B/P (MAP) Pulse Ox O2 Delivery O2 Flow Rate FiO2 08/09/24 15:53 98.8 88 16 123/79 96 Room Air* 0 21 08/09/24 10:07 98.8 103 18 116/77 96 Room Air 0 ELEVEN 30, SPOKE WITH PATIENT'S MARQUIS AND PATIENT REGARDING HER REPEATED VISITS TO THE EMERGENCY ROOM. MARQUIS STATES THAT HE IS UNABLE TO TAKE CARE OF HER PHYSICALLY BECAUSE HE LACKS THE STRENGTH HOWEVER IF SHE HAS A BAD NIGHT HE CALLED THE EMS TO BRING HER BACK TO THE EMERGENCY ROOM. HE STATES HE HAS PROMISED HER HOWEVER THAT HE WILL NEVER PUT HER IN THE SHELTER BECAUSE OF HER HISTORY WITH NURSING HOMES A CHILD. WHEN I SPOKE WITH PATIENT, SHE SAID THAT SHE WILL NOT GO TO A SHELTER SHE SAID SHE WOULD RATHER GO HOME DEAR WITH HER HOME HEALTH AGENCY NURSE. THIRTEEN 50, POTASSIUM IS 3.2 WE WILL BE REPLACED PATIENT DOES HAVE MILDLY ELEVATED BNP WE WILL BE GIVEN PRESCRIPTION FOR LASIX 20 MG P.O. Q.DAY FOR FIVE DAYS AND TOLD TO SEE HIS DOCTOR Medical Decision Making MDM MDM: DIFFERENTIAL DIAGNOSIS: ACS/AMI/ELECTROLYTE IMBALAN CE/DEHYDRATION/UTI/NONCOMPLIANCE RATIONALE: TESTS CONSIDERED AND ORDERED SECONDARY TO SHARED DECISION MAKING INCLUDE: PREVIOUS OUTSIDE RECORDS REVIEWED: OLD ER VISITS. LAB REVIEWED RISK OF COMPLICATION AND/OR MORBIDITY OR MORTALITY OF PATIENT MANAGEMENT: NONE MEDICATIONS-PER MEDICATION RECONCILIATION NEED FOR HOSPITALIZATION: PATIENT DOES NOT MEET CRITERIA FOR HOSPITALIZATION. PATIENT REFUSES ADMISSION NEED FOR EMERGENCY MAJOR/MINOR SURGERY: NO THERE ARE NO SOCIAL CONCERNS WITH THIS PATIENT. PRESCRIPTION DRUG MANAGEMENT LASIX PRESCRIPTIONS WILL INCLUDE SYMPTOMATIC CARE PATIENT'S PRIOR EXTERNAL MEDICAL RECORDS FROM OTHER ER VISITS WERE REVIEWED BY ME INDICATED. PRIOR TESTING AND RESULTS FROM PREVIOUS VISITS WERE REVIEWED. PRIOR TESTS WERE TAKEN INTO ACCOUNT WITH MEDICAL DECISION MAKING AND RESOURCE UTILIZATION, INDEPENDENT HISTORIAN/HISTORIANS WERE USED TO OBTAIN COMPLETE ME DICAL HISTORY. I INDEPENDENTLY INTERPRETED THE TEST THAT WERE PERFORMED, RESULTS WERE REVIEWED BY ME AND CONSIDERED FINDINGS ON RADIOLOGY IF ORDERED. MEDICAL MANAGEMENT AND EXAMINATION INTERPRETATION DISCUSSIONS WERE HAD BY ME WITH OTHER QUALIFIED HEALTHCARE PROFESSIONALS INDICATED FOR THE PATIENT'S CARE. DX & DISP Disposition: Discharge Departure Impression: Primary Impression: CHF (congestive heart failure) Additional Impressions: Hypokalemia, Chronic kidney disease, Weakness Condition: Stable Scripts Furosemide (Lasix) 20 Mg Tablet 1 TAB PO DAILY for 5 Days, #5 TAB 0 Refills Prov: ANNE RAMSAY LAMP MECHANIC 08/09/24 Additional Instructions: FOLLOW-UP WITH PRIMARY CARE PROVIDER IN 1 TO 2 DAYS. TAKE MEDICATIONS DIRECTED HERE IN THE EMERGENCY ROOM. OKAY TO CONTINUE HOME MEDICATIONS UNLESS OTHERWISE DISCUSSED DURING YOUR VISIT IN THE EMERGENCY ROOM TODAY. RETURN TO YOUR NEAREST EMERGENCY ROOM IF SYMPTOMS WORSEN OR IF THERE IS NO IMPROVEMENT. CALL 911 IF YOU NEED IMMEDIATE ASSISTANCE. TAKE TYLENOL OR MOTRIN [id number] NEEDED AND IF NO CONTRAINDICATIONS ARE PRESENT. INCREASE ORAL HYDRATION. A WOUND CULTURE OR URINE CULTURE WAS ORDERED HERE IN THE EMERGENCY ROOM DEPARTMENT PLEASE FOLLOW-UP WITH PRIMARY CARE PROVIDER AND ADVISE THEM TO GET REPEAT PORTS FROM OUR FACILITY. IF YOU HAD ANY STANISLAV WRAP/SPLINTS THAT WERE APPLIED HERE, PLEASE DO NOT REMOVE THEM UNTIL YOU SEE YOUR PRIMARY CARE OR SPECIALTY. TAKE LASIX DIRECTED UNTIL GONE. FOLLOW UP WITH YOUR PRIMARY CARE DOCTOR IN 1-2 DAYS. Referrals: MONA FRIEDMAN MD (PCP) Time of Disposition: 13:53 I have reviewed the case, and I agree with, Diagnosis and Plan Attestation I saw this patient in yesterday. She was 78. She is unable to handle her ADLs at home. She also likely has a bit of dementia. NSAID again we had a long conversation with her and the . They do not want to go to a nursing facility. There are no acute medical conditions so she was not meet criteria for hospitalization. This was also confirmed with the hospitalist. We did offer to coordinate getting her to a penitentiary, with the family absolutely does not want this and they said they would rather go home. ANNE RAMSAY NP Aug 09, 2024 10:26 ENMA SANTOS DO Aug 09, 2024 18:24
--- NOTE | 2024-08-09 10:48 | EKG ---
[facility] Test Date: 2024-08-09 Test Time: 10:47:18 Pat Name: MARTHA TALAMANTES Department: ED Room: Gender: F Car Manager: [id number] : [id number] Requested By: ANNE RAMSAY Order Number: [id number] Reading MD: Freda Mukherjee Measurements Intervals [place] Rate: 104 P: 0 HI: 95 QRS: -19 QRSD: 110 T: 152 QT: 408 QTc: 534 Interpretive Statements Sinus tachycardia Anteroseptal infarct, age indeterminate Abnormal T, consider ischemia, lateral leads Prolonged QT interval Compared to ECG 07/30/2024 11:36:19 Sinus arrhythmia no longer present Myocardial infarct finding still present T-wave abnormality still present Possible ischemia still present Electronically Signed On 08-09-2024 13:33:56 SUPERVISOR MAPPING by Freda Mukherjee Please click the below link to view image of tracing.
[2024-08-09 13:23] LABS: BASOPHILS # (AUTO) 0.05 K/uL (0.00-0.20); BASOPHILS % (AUTO) 0.9 % (0.0-5.0); EOSINOPHILS # (AUTO) 0.17 K/uL (0.00-0.70); IMMATURE GRANULOCYTE ABSOLUTE 0.03 K/uL (0-1); LYMPHOCYTES # (AUTO) 1.3 K/uL (1.0-4.8); LYMPHOCYTES % (AUTO) 22.4 % (21.0-51.0); MEAN CORPUSCULAR HEMOGLOBIN 33.9 pg (27.0-33.0); MEAN CORPUSCULAR HGB CONC 36.3 g/dL (32.0-36.0); MEAN CORPUSCULAR VOLUME 93.4 fL (79-99); MONOCYTES # (AUTO) 0.5 K/uL (0.1-1.0); MONOCYTES % (AUTO) 9.4 % (3.0-13.0); NEUTROPHILS # (AUTO) 3.6 K/uL (1.8-7.7); NEUTROPHILS % (AUTO) 63.8 % (40.0-77.0); PLATELET COUNT (AUTO) 346 K/uL (130-400); RED BLOOD CELL COUNT(AUTO) 2.57 MIL/uL (4.00-5.50); RED CELL DISTRIBUTION WIDTH 16.3 % (11.0-15.5); WHITE BLOOD COUNT (AUTO) 5.6 K/uL (4.8-10.8)
[2024-08-09 13:29] LABS: CREATININE 0.9 mg/dL (0.5-1.0); POTASSIUM 3.2 mmol/L (3.5-5.1)
[2024-08-09 13:39] LABS: B-TYPE NATRIURETIC PEPTIDE 942 pg/mL (0-100)
[2024-08-09] MEDS ORDERED: FURO-152 PO (13:54)
--- NOTE | 2024-08-09 14:30 | NUR ---
ems dispatched called and faxed paperwork
[2024-08-09] MEDS: PoTASSium BIcarbonate/CIT AC 25 MEQ TABLET.EFF PO ONE (15:08)
[2024-08-09 15:53] VITALS: BP 123/79; PULSE 88; RESP 16; TEMP 98.8; O2SAT 96
== END 2024-08-09 15:54 | disposition home or self-care (01) ==
LOC: EDH 10:04
DX: I50.9 Heart failure, unspecified (principal); N18.9 Chronic kidney disease, unspecified; E87.6 Hypokalemia; F03.90 Unspecified dementia, unspecified severity, without behavioral disturbance, psychotic disturbance, mood disturbance, and anxiety; Z79.899 Other long term (current) drug therapy; Z88.5 Allergy status to narcotic agent
CPT/HCPCS: 36415; 80048; 83690; 83880; 84484; 85025; 93005; 99283